=== PATIENT | female | born 1950 | race Caucasian/White ===

== ENCOUNTER 2016-12-23 11:42 | Emergency (ER) | payer OTHER ==
[2016-12-23 11:57] VITALS: BMI 26.6
[2016-12-23] MEDS ORDERED: METOCLOPRAMIDE HCL INJECTION 10 MG/2 ML VIAL IVPUSH ONE (12:30)
[2016-12-23] MEDS ORDERED: ACETAMINOPHEN 325 MG TABLET (FP) PO ONE (12:37)
--- NOTE | 2016-12-23 12:39 | PDOC ---
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 Patient notes she was in her gastroenterologists office when her doctor sent her to the ED for high blood pressure. The patient reports a gradual onset of non radiating chest pain and headache around 9 am yesterday morning secondary to finding out her brother . The patient describes her chest pain like as sharp and lasting 30 minutes before resolving. She reports a diffuse frontal headache radiating across her left and right forehead. She states her headache is stronger than her headaches in the past. There is no associated n/v, sob, diaphoresis, visoin changes, numbness/tingling/weakness. No recently exertional symptoms. The patient reports she is complaint to taking her lisinopril. She is unable to recall the name of her other blood pressure medication and states she hasn't taken it in 2 months. Denies nausea, vomiting, or diarrhea. Denies lightheadedness or vision changes. Denies shortness of breath or palpitations. Denies any other symptoms. <Jose M Ratliff - Last Filed: 12/23/16 16:59> <Asad Caldwell - Last Filed: 12/25/16 02:30> - General Chief Complaint: Blood Pressure Problem Stated Complaint: HIGH BLOOD BP (REFERRED) Time Seen by Provider: 12/23/16 12:09 Past History <Jose M Ratliff - Last Filed: 12/23/16 16:59> - Past Medical History HTN: Yes - Psycho/Social/Smoking Cessation Hx Suicidal Ideation: No Smoking Status: No Smoking History: Never smoked Number of Cigarettes Smoked Daily: 0 <Asad Caldwell - Last Filed: 12/25/16 02:30> - Past Medical History Allergies/Adverse Reactions: Allergies Allergy/AdvReac Type Severity Reaction Status Date / Time No Known Allergies Allergy Verified 12/23/16 11:52 Home Medications: Ambulatory Orders Cephalexin [Keflex Suspension] 500 mg PO QID 03/14/13 Acetaminophen [Tylenol .Regular Strength -] 650 mg PO Q6H PRN #0 tablet Amlodipine Besylate [Norvasc -] 10 mg PO DAILY #0 tablet 03/18/13 Levofloxacin [Levaquin] 500 mg PO DAILY #7 tablet 03/18/13 Lisinopril [Prinivil] 40 mg PO DAILY #0 tablet 03/18/13 Metronidazole [Flagyl -] 500 mg PO TID #0 tablet 03/18/13 Review of Systems - Review of Systems Able to Perform ROS?: Yes Comments:: 12/23/16 16:59 CONSTITUTIONAL: No reported: Fever, Chills, Diaphoresis, Generalized Weakness, Malaise, Loss of Appetite HEENT: No reported: Rhinorrhea, Nasal Congestion, Throat Pain, Throat Swelling, Difficulty Swallowing, Mouth Swelling, Ear Pain, Eye Pain, Visual Changes CARDIOVASCULAR: +high blood pressure, chest pain No reported: Syncope, Palpitations, Irregular Heart Rate, Lightheadedness, Peripheral Edema RESPIRATORY: No reported: Cough, Shortness of Breath, SOB with Exertion, Orthopnea, Wheezing , Stridor, Hemoptysis GASTROINTESTINAL: No reported: Abdominal pain, Abdominal Distension, Nausea, Vomiting, Diarrhea, Constipation, Melena, Hematochezia GENITOURINARY: No reported: Dysuria, Frequency, Urgency, Hesitancy, Flank Pain, Genital Pain MUSCULOSKELETAL: No reported: Myalgia, Arthralgia, Joint Swelling, Back pain, Neck Pain SKIN: No reported: Rash, Itching, Pallor HEMEATOLOGIC/IMMUNOLOGIC: No reported: Easy Bleeding, Easy Bruising, Lymphadenopathy, Frequent infections ENDOCRINE: No reported: Unexplained Weight Gain, Unexplained Weight Loss, Heat Intolerance , Cold Intolerance NEUROLOGIC: + headache No reported: Focal Weakness, Paresthesias, Vertigo, Lightheadedness, Unsteady Gait, Seizure, Mental Status Changes, Incontinence PSYCHIATRIC: No reported: Anxiety, Depression All Other Systems: Reviewed and Negative <Jose M Ratliff - Last Filed: 12/23/16 16:59> *Physical Exam - Vital Signs Last Vital Signs Temp Pulse Resp BP Pulse Ox 98.1 F 77 19 200/86 98 12/23/16 11:52 12/23/16 11:52 12/23/16 11:52 12/23/16 11:52 12/23/16 11:52 - Physical Exam Comments: 12/23/16 16:59 GENERAL: The patient is awake, alert, and fully oriented, Nontoxic - in no acute distress. HEAD: Normocephalic, atraumatic. EYES: extraocular movements intact, sclera anicteric, conjunctiva clear. ENT: Normal voice, Moist mucous membranes. NECK: Normal range of motion, supple LUNGS: Breath sounds equal, clear to auscultation bilaterally. No wheezes, no rhonchi, no rales. HEART: Regular rate and rhythm, without murmur, rub or gallop. ABDOMEN: Soft, nontender, normoactive bowel sounds. No guarding, no rebound.No CVA tenderness EXTREMITIES: Normal range of motion, no edema. No clubbing or cyanosis. No cords, erythema, or tenderness. NEUROLOGICAL: No facial assymetry, Normal speech, PSYCH: Normal mood, normal affect. SKIN: Warm, Dry, normal turgor, <RatliffAndrys - Last Filed: 12/23/16 16:59> - Vital Signs Last Vital Signs Temp Pulse Resp BP Pulse Ox 98.1 F 77 19 200/86 98 12/23/16 11:52 12/23/16 11:52 12/23/16 11:52 12/23/16 11:52 12/23/16 11:52 <Asad Caldwell - Last Filed: 12/25/16 02:30> Heart Score/ECG Review - ECG Impressions Comment:: 12/23/16 14:46 Twelve-lead EKG was performed and reviewed by me. There is normal sinus rhythm with a normal rate. Rate of 77 The axis is normal. The intervals are normal. There is normal R wave progression There are no ST or T wave abnormalities. Impression: Normal twelve-lead EKG <Asad Caldwell - Last Filed: 12/25/16 02:30> ED Treatment Course - LABORATORY CBC & Chemistry Diagram: 12/23/16 12:29 12/23/16 12:29 - ADDITIONAL ORDERS Additional order review: Laboratory Results 12/23/16 12/23/16 12:29 12:29 Sodium 140 Potassium 3.8 Chloride 100 Carbon Dioxide 31 Anion Gap 9 BUN 10 D Creatinine 0.9 Creat Clearance w eGFR > 60 Random Glucose 91 Calcium 9.6 Total Bilirubin 0.7 AST 18 D ALT 22 D Alkaline Phosphatase 66 Creatine Kinase 96 Troponin I < 0.02 Total Protein 8.1 Albumin 4.1 Urine Color Colorless Urine Appearance Clear Urine pH 7.0 D Ur Specific [place] 1.005 Urine Protein Negative Urine Glucose (UA) Negative Urine Ketones Negative Urine Blood 2+ H Urine Nitrite Negative Urine Bilirubin Negative Urine Urobilinogen Negative Ur Leukocyte Esterase 3+ H Urine RBC 7 Urine WBC 104 Ur Epithelial Cells Rare Urine Yeast Rare 12/23/16 12:29 RBC 4.23 MCV 89.7 MCHC 32.7 RDW 13.0 MPV 9.2 Neutrophils % 63.7 D Lymphocytes % 29.9 D Monocytes % 5.0 Eosinophils % 0.7 Basophils % 0.7 - RADIOLOGY Radiograph Interpretation: 12/23/16 15:28 CT/HEAD CT WITHOUT CONTRAST Impression: Normal noncontrast CT of the brain, Clinical correlation advised Reported by: Cleve Dhaliwal - Medications Given in the ED: ED Medications Discontinued Medications Generic Name Dose Route Start Last Admin Trade Name Freq PRN Reason Stop Dose Admin Acetaminophen 650 mg 12/23/16 12:37 12/23/16 13:46 Tylenol - PO 12/23/16 12:38 650 mg ONCE ONE Administration Metoclopramide HCl 10 mg 12/23/16 12:30 12/23/16 13:46 Reglan Injection - IVPUSH 12/23/16 12:31 10 mg ONCE ONE Administration <Jose M Ratliff - Last Filed: 12/23/16 16:59> - LABORATORY CBC & Chemistry Diagram: 12/23/16 12:29 12/23/16 12:29 - RADIOLOGY Radiology Studies Ordered: Category Date Time Status HEAD CT WITHOUT CONTRAST [CT] Stat CT Scan 12/23/16 12:30 Ordered <Asad Caldwell - Last Filed: 12/25/16 02:30> Medical Decision Making - Medical Decision Making 12/23/16 12:36 66y F hx of htn (on hctz) sent to the ED for evaluation of hypetension - pt was being evaluated by GI at his office when he noticed that she was very hypertensives into the 200s. pt also endorses having a headache and mild chest pain that started around the smae time yesterday morning - the pt also notes that she found out that her brother yesterday. Pt denies any neurologic sypmtoms. pts exam is unremarkable consider possible hypertensive emergency vs. anxiety, will give reglan, tylenol will ck lbas, ct head, ekg will reassess A portion of this note was documented by scribe services under my direction. I have reviewed the details of the note, within reason, and agree with the documentation with the following case summary and management plan written by me 12/23/16 16:49 labs reivewed unremarkable pt is currently asypmtomatic headache and chest pain resolved pt signed out to dr. samson to fu with 2n dtroponin will obtain a 2nd troponin and if asypmtomatic will dc <Asad Caldwell - Last Filed: 12/25/16 02:30> *DC/Admit/Observation/Transfer - Attestations Scribe Attestion: 12/23/16 16:59 Documentation prepared by Jose M Ratliff, acting as medical consultant for Asad Caldwell MD <Jose M Ratliff - Last Filed: 12/23/16 16:59> <Asad Caldwell - Last Filed: 12/25/16 02:30> Diagnosis at time of Disposition: Atypical chest pain - Discharge Dispostion Disposition: HOME Condition at time of disposition: Improved - Referrals Referrals: Jose Alejandro Santizo PA [Primary Care Provider] - - Patient Instructions Printed Discharge Instructions: DI for Atypical Chest Pain Additional Instructions: Your blood work demonstrates 2 negative troponins. At this time, your clear to be discharged. Your urine studies demonstrate your chronic findings with your urine. Please follow-up with your urologist as she had done before. If he develop any fevers or worsening lower abdominal pain or dysuria, please return to the ER for antibodies. Print Language: UKRAINIAN
[2016-12-23] MEDS ORDERED: METOCLOPRAMIDE HCL INJECTION 10 MG/2 ML VIAL ONE (13:47)
[2016-12-23] MEDS ORDERED: ACETAMINOPHEN 325 MG TABLET (FP) ONE (13:47)
[2016-12-23 13:58] LABS: BASOPHIL 0.7 % (0-2.0); EOSINOPHIL 0.7 % (0-4.5); MCH 29.3 pg (25.7-33.7); MCHC 32.7 g/dl (32.0-36.0); MEAN CELL VOLUME 89.7 fl (80-96); MEAN PLT VOLUME 9.2 fl (7.5-11.1); NEUTROPHILS 63.7 % (42.8-82.8); PLATELET COUNT 315 K/MM3 (134-434); WHITE BLOOD COUNT 8.1 K/mm3 (4.0-10.0)
[2016-12-23 14:01] LABS: URINE APPEARANCE CLEAR; URINE BILIRUBIN NEGATIVE (NEGATIVE); URINE COLOR COLORLESS; URINE GLUCOSE (UA) NEGATIVE (NEGATIVE); URINE KETONE NEGATIVE (NEGATIVE); URINE NITRITE NEGATIVE (NEGATIVE); URINE PROTEIN NEGATIVE (NEGATIVE); URINE UROBILINOGEN NEGATIVE E.U./dl (0.2-1.0)
[2016-12-23 14:02] LABS: URINE BLOOD 2+ (NEGATIVE); URINE LEUK ESTERASE 3+ (NEGATIVE)
[2016-12-23 14:04] LABS: URINE RBC 7 /hpf (0-3); URINE WBC 104 /hpf (3-5); YEAST RARE
[2016-12-23 14:40] LABS: ALBUMIN 4.1 g/dl (3.4-5.0); ANION GAP 9 (8-16); CALCIUM 9.6 mg/dL (8.5-10.1); CO2 31 mmol/L (21-32); CREATININE 0.9 mg/dL (0.55-1.02); GLUCOSE,RANDOM 91 mg/dL (74-106); SGOT/AST 18 U/L (15-37)
[2016-12-23 14:44] LABS: ALK PHOS 66 U/L (45-117); BILIRUBIN,TOTAL 0.7 mg/dL (0.2-1.0); SGPT/ALT 22 U/L (12-78); TOT PROT 8.1 g/dl (6.4-8.2); TROPONIN I < 0.02 ng/ml (0.00-0.05)
[2016-12-23] MEDS ORDERED: CEFTRIAXONE 1 GM in DEXTROSE 5%-WATER - 50 ML IVPB ONE (18:47)
[2016-12-23 20:01] LABS: TROPONIN I < 0.02 ng/ml (0.00-0.05)
--- NOTE | 2016-12-23 20:13 | PDOC ---
*Physical Exam - Vital Signs Last Vital Signs Temp Pulse Resp BP Pulse Ox 98.1 F 57 L 20 182/80 100 12/23/16 11:52 12/23/16 17:18 12/23/16 17:18 12/23/16 17:18 12/23/16 17:18 ED Treatment Course - LABORATORY CBC & Chemistry Diagram: 12/23/16 12:29 12/23/16 12:29 - ADDITIONAL ORDERS Additional order review: Laboratory Results 12/23/16 12/23/16 12/23/16 19:22 12:29 12:29 Sodium 140 Potassium 3.8 Chloride 100 Carbon Dioxide 31 Anion Gap 9 BUN 10 D Creatinine 0.9 Creat Clearance w eGFR > 60 Random Glucose 91 Calcium 9.6 Total Bilirubin 0.7 AST 18 D ALT 22 D Alkaline Phosphatase 66 Creatine Kinase 87 96 Troponin I < 0.02 < 0.02 Total Protein 8.1 Albumin 4.1 Urine Color Colorless Urine Appearance Clear Urine pH 7.0 D Ur Specific [place] 1.005 Urine Protein Negative Urine Glucose (UA) Negative Urine Ketones Negative Urine Blood 2+ H Urine Nitrite Negative Urine Bilirubin Negative Urine Urobilinogen Negative Ur Leukocyte Esterase 3+ H Urine RBC 7 Urine WBC 104 Ur Epithelial Cells Rare Urine Yeast Rare 12/23/16 12:29 RBC 4.23 MCV 89.7 MCHC 32.7 RDW 13.0 MPV 9.2 Neutrophils % 63.7 D Lymphocytes % 29.9 D Monocytes % 5.0 Eosinophils % 0.7 Basophils % 0.7 - Medications Given in the ED: ED Medications Discontinued Medications Generic Name Dose Route Start Last Admin Trade Name Freq PRN Reason Stop Dose Admin Acetaminophen 650 mg 12/23/16 12:37 12/23/16 13:46 Tylenol - PO 12/23/16 12:38 650 mg ONCE ONE Administration Metoclopramide HCl 10 mg 12/23/16 12:30 12/23/16 13:46 Reglan Injection - IVPUSH 12/23/16 12:31 10 mg ONCE ONE Administration Medical Decision Making - Medical Decision Making 12/23/16 20:10 Sign-out received from outgoing Emergency Physician Dr. Caldwell Pt interviewed and examined Ancillary studies reviewed Case discussed in detail with oncoming Emergency Physician including history, physical exam and ancillary studies. CBC, BMP 12/23/16 12:29 12/23/16 12:29 CMP Sodium 140 mmol/L (136-145) 12/23/16 12:29 Potassium 3.8 mmol/L (3.5-5.1) 12/23/16 12:29 Chloride 100 mmol/L (98-107) 12/23/16 12:29 Carbon Dioxide 31 mmol/L (21-32) 12/23/16 12:29 Anion Gap 9 (8-16) 12/23/16 12:29 BUN 10 mg/dL (7-18) D 12/23/16 12:29 Creatinine 0.9 mg/dL (0.55-1.02) 12/23/16 12:29 Creat Clearance w eGFR > 60 (>60) 12/23/16 12:29 Random Glucose 91 mg/dL (74-106) 12/23/16 12:29 Calcium 9.6 mg/dL (8.5-10.1) 12/23/16 12:29 Total Bilirubin 0.7 mg/dL (0.2-1.0) 12/23/16 12:29 AST 18 U/L (15-37) D 12/23/16 12:29 ALT 22 U/L (12-78) D 12/23/16 12:29 Alkaline Phosphatase 66 U/L (45-117) 12/23/16 12:29 Creatine Kinase 87 IU/L (26-192) 12/23/16 19:22 Troponin I < 0.02 ng/ml (0.00-0.05) 12/23/16 19:22 Total Protein 8.1 g/dl (6.4-8.2) 12/23/16 12:29 Albumin 4.1 g/dl (3.4-5.0) 12/23/16 12:29 Urine Test Results Urine Color Colorless 12/23/16 12:29 Urine Appearance Clear 12/23/16 12:29 Urine pH 7.0 (5.0-8.0) D 12/23/16 12:29 Ur Specific [place] 1.005 (1.001-1.035) 12/23/16 12:29 Urine Protein Negative (NEGATIVE) 12/23/16 12:29 Urine Glucose (UA) Negative (NEGATIVE) 12/23/16 12:29 Urine Ketones Negative (NEGATIVE) 12/23/16 12:29 Urine Blood 2+ (NEGATIVE) H 12/23/16 12:29 Urine Nitrite Negative (NEGATIVE) 12/23/16 12:29 Urine Bilirubin Negative (NEGATIVE) 12/23/16 12:29 Ur Leukocyte Esterase 3+ (NEGATIVE) H 12/23/16 12:29 Urine RBC 7 /hpf (0-3) 12/23/16 12:29 Urine WBC 104 /hpf (3-5) 12/23/16 12:29 Ur Epithelial Cells Rare /hpf (FEW) 12/23/16 12:29 The patient had 2 serial negative troponins. I reassessed the patient and noted that she was pain free and feeling much better. I had also discussed results of urine with the patient. She noted 3+ leuk esterase 104 RBCs. The patient reports to me that she has no dysuria and that she has chronic positive UTIs that is under investigation by urologist. She is aware that her urine findings are typically positive. She states that she typically does not need any antibiotics and that she'll follow with urologist. Given that this is chronic and that she is aware of the symptoms, we'll defer antibiotics at the moment. Return precautions given. I discussed the physical exam findings, ancillary test results and final diagnoses with the patient. I answered all of the patient's questions. The patient was satisfied with the care received and felt comfortable with the discharge plan and treatment plan. The patient will call their primary care physician within 24 hours to arrange follow-up and will return to the Emergency Department with any new, persistant or worsening symptoms. *DC/Admit/Observation/Transfer Diagnosis at time of Disposition: Atypical chest pain - Discharge Dispostion Disposition: HOME Condition at time of disposition: Improved Admit: No - Referrals Referrals: Jose Alejandro Santizo PA [Primary Care Provider] - - Patient Instructions Printed Discharge Instructions: DI for Atypical Chest Pain Additional Instructions: Your blood work demonstrates 2 negative troponins. At this time, your clear to be discharged. Your urine studies demonstrate your chronic findings with your urine. Please follow-up with your urologist as she had done before. If he develop any fevers or worsening lower abdominal pain or dysuria, please return to the ER for antibodies. Print Language: BELIZEAN - Post Discharge Activity
[2016-12-23 20:49] VITALS: BP 162/79; PULSE 61; TEMP 97.9
--- NOTE | 2016-12-24 16:27 | EKG ---
Test Reason : Blood Pressure : / mmHG Vent. Rate : 077 BPM Atrial Rate : 077 BPM P-R Int : 112 ms QRS Dur : 080 ms QT Int : 384 ms P-R-T Axes : 037 006 019 degrees QTc Int : 434 ms NORMAL SINUS RHYTHM NORMAL ECG WHEN COMPARED WITH ECG OF 26-JAN-2013 11:22, NO SIGNIFICANT CHANGE WAS FOUND Confirmed by BEAN TATE MD ([id number]) on 12/24/2016 4:26:54 PM Referred By: Confirmed By:BEAN TATE MD
--- NOTE | 2016-12-26 14:57 | PDOC ---
Patient Follow-up (Call Back) - Post ED Follow - Up Condition at time of discharge: Improved Disposition at time of original discharge: HOME Reason for Call Back: Abnwl. Microbiology (pt. had urine C & S done on 12/23/16 + for uti with > than 100,000 sensitive to macrobid 100 mg bid x 7 days, than follup with primary for repeat urine testing, sent to [facility] [address] in [place], pt. is aware)
== END 2016-12-23 20:49 | disposition home or self-care (01) ==
LOC: JER 11:42
PROC: 3E033GC Introduction of Other Therapeutic Substance into Peripheral Vein, Percutaneous Approach (ICD-10-PCS; principal; 2016-12-23)
DX: R07.89 Other chest pain (principal); I10 Essential (primary) hypertension
CPT/HCPCS: 36415; 70450-TC; 80053; 81003; 81015; 82550; 84484; 85025; 87086; 87186; 93005; 93010; 96374; 99283-25

== ENCOUNTER 2017-10-05 11:33 | Inpatient (IN) | payer OTHER ==
[2017-10-05 12:01] VITALS: BMI 24.1
--- NOTE | 2017-10-05 12:21 | PDOC ---
History of Present Illness - General Chief Complaint: Vaginal Bleeding Stated Complaint: PAIN Time Seen by Provider: 10/05/17 12:17 History Source: Patient Exam Limitations: No Limitations - History of Present Illness Initial Comments: CHIEF COMPLAINT: 66 y/o afebrile female with PMH HTN, HLD c/o weight loss, constipation and vaginal and rectal bleeding. HISTORY OF PRESENT ILLNESS: The patient states that she has had bleeding from her vagina and her rectum for the past 20 days. She has lost 30lb in the past 6 months without trying. She states she has not had a normal BM for 1 week but feels "full". She also c/o lower abdominal pain. THe patient had a hysterectomy 27 years ago. She saw her doctor 5 days ago who scheduled her for a colonoscopy next 10/11/17. She denies f/c, n/v, Cp, SOB, dizziness , weakness. She is not on a blood thinner. PCP is Dr. Juan Ramon Jack Vital signs on arrival are within normal limits. REVIEW OF SYSTEMS: GENERAL/CONSTITUTIONAL: No fever/chills. No weakness. +30lb unintentional weight loss in 6 months. HEAD, EYES, EARS, NOSE AND THROAT: No change in vision. No ear pain or discharge. No sore throat. CARDIOVASCULAR: No chest pain or shortness of breath. RESPIRATORY: No cough, wheezing, or hemoptysis. GASTROINTESTINAL: +lower abdominal pain and constipation. No nausea or vomiting. +recta l bleeding GENITOURINARY: No dysuria, frequency, or change in urination. +vaginal bleeding. MUSCULOSKELETAL: No joint or muscle swelling or pain. No neck or back pain. SKIN: No rash or easy bruising. NEUROLOGIC: No headache, vertigo, loss of consciousness, or loss of sensation. PHYSICAL EXAM: GENERAL: The patient is awake, alert, and fully oriented, in no acute distress. She is pleasant and well appearing. HEAD: Normal with no signs of trauma. ENT: Pupils equal, round and reactive to light, extraocular movements intact, sclera anicteric, conjunctiva clear. Conjunctiva pink. LUNGS: Clear to auscultation bilaterally. Normal excursion. No respiratory distress or use of accessory muscles. CV: RRR, S1/S2, no MRG. Cap refill < 2 sec. ABDOMEN: TTP of RLQ and right pelvic region. No rebound, guarding or rigidity. Soft, non-distended, no hepatomegaly or splenomegaly, no masses. VAGINAL: Speculum exam reveals fluid that appears like urine in the vaginal canal, along with minimal amount of blood and blood clots. Digital exam reveal some right adnexal and CMT TTP without any masses appreciated. RECTAL: +red blood on digital rectal exam. No masses appreciated. EXTREMITIES: Normal range of motion, no edema. NEUROLOGICAL: Normal speech, normal gait. CN II-XII grossly intact. SKIN: Warm, dry, normal turgor, no rashes or lesions noted. Past History - Past Medical History Allergies/Adverse Reactions: Allergies Allergy/AdvReac Type Severity Reaction Status Date / Time No Known Allergies Allergy Verified 10/05/17 11:55 Home Medications: Ambulatory Orders Nitrofurantoin Monohyd/M-Cryst [Macrobid -] 100 mg PO BID #14 capsule 12/26/16 Losartan/Hydrochlorothiazide [Losartan-Hctz 100-25 mg Tab] 1 each PO DAILY 10/05 Metoprolol Succinate 50 mg PO DAILY 10/05/17 Loperamide HCl [Loperamide] 2 mg PO ONCE #1 tablet 10/06/17 COPD: No HTN: Yes - Suicide/Smoking/Psychosocial Hx Smoking Status: No Smoking History: Former smoker Have you smoked in the past 12 months: No Number of Cigarettes Smoked Daily: 0 Information on smoking cessation initiated: No *Physical Exam - Vital Signs Last Vital Signs Temp Pulse Resp BP Pulse Ox 98.8 F 89 19 160/76 100 10/05/17 11:55 10/05/17 11:55 10/05/17 11:55 10/05/17 11:55 10/05/17 11:55 Heart Score/ECG Review - ECG Intrepretation Comment:: Twelve-lead EKG was performed and reviewed by Dr. Hussein. There is normal sinus rhythm with a normal rate and short ME. The axis is normal. The intervals are normal. There are no ST or T wave abnormalities. Impression: Otherwise normal twelve-lead EKG ED Treatment Course - LABORATORY CBC & Chemistry Diagram: 10/08/17 07:21 10/08/17 07:21 Medical Decision Making - Medical Decision Making A/P: 66 y/o female with 20 days of post menopausal vaginal and rectal bleeding with 30lb weight loss over past 6 months. Concerned for mass, fistula. Plan is as follows: 1. Labs 2. UA 3. Transvaginal ultrsaound 4. CT scan abd/pelvis Transvaginal Ultrasound IMPRESSION: Non specific free fluid in the cul-de-sac. Previous hysterectomy and b/l oophorectomy. CT scan abd/pelvis IMPRESSION: 1. Status post hysterectomy. Thickening of the vaginal fornix and circumferential urinary bladder wall thickening, which are inseparable from each other may be secondary to post radiation changes, however, active infectious/inflammatory processes or neoplasia cannot be entirely excluded. 2. Presence of gas locules within the urinary bladder and fluid within the vaginal fornix which appears to communicate with the right posterolateral wall of the urinary bladder - is extremely suspicious for vesicovaginal fistula. Emphysematous cystitis cannot be excluded. 3. Rectal wall thickening may be secondary to a nonspecific infectious or inflammatory proctitis. Neoplasm is not excluded. Circumferentially prominent sigmoid colon wall could be secondary to underdistention, however, colitis is not excluded. 4. Moderate rigt hydroureteronephrosis and mild left hydroureteronephrosis is likely secondary to scarring and/or extrinsic compression in the pelvis. This hydroureter is mildly increased since 03/14/13 CT. Will admit to hospitalist. Gave report to Dr. Timmons. Will admit to Dr. Villanueva. Will put in consult for surgery and GI. At this time Dr. Timmons does not want abx given; blood cultures ordered. Patient and her daughter made aware of the plan. *DC/Admit/Observation/Transfer Diagnosis at time of Disposition: Rectal bleeding Hydronephrosis Qualifiers: Hydronephrosis type: unspecified Qualified Code(s): N13.30 - Unspecified hydronephrosis UTI (urinary tract infection) Qualifiers: Urinary tract infection type: site unspecified Hematuria presence: with hematuria Qualified Code(s): N39.0 - Urinary tract infection, site not specified - Discharge Dispostion Condition at time of disposition: Stable Admit: Yes - Prescriptions - Referrals - Patient Instructions - Post Discharge Activity
[2017-10-05 13:27] LABS: BASO % 0.7 % (0-2.0); EOS % 0.8 % (0-4.5); HEMATOCRIT 28.4 % (32.4-45.2); MCH 26.7 pg (25.7-33.7); MCHC 31.9 g/dl (32.0-36.0); MEAN CELL VOLUME 83.7 fl (80-96); MEAN PLT VOLUME 7.9 fl (7.5-11.1); MONO % 4.6 % (3.8-10.2); NEUT % 69.9 % (42.8-82.8); PLATELET COUNT 571 K/MM3 (134-434); RBC 3.39 M/mm3 (3.60-5.2); RDW 15.9 % (11.6-15.6); WHITE BLOOD COUNT 13.5 K/mm3 (4.0-10.0)
[2017-10-05 13:43] LABS: INR 1.35 (0.82-1.09); PROTHROMBIN TIME (PATIENT) 15.2 SEC (9.98-11.88)
[2017-10-05 13:46] LABS: ACTIVATED PTT 29.3 SECONDS (26.9-34.4)
[2017-10-05 14:01] LABS: ALBUMIN 3.3 g/dl (3.4-5.0); ANION GAP 11 (8-16); BILIRUBIN,TOTAL 0.5 mg/dL (0.2-1.0); BLOOD UREA NITROGEN 26 mg/dL (7-18); CALCIUM 9.1 mg/dL (8.5-10.1); CHLORIDE 103 mmol/L (98-107); CO2 22 mmol/L (21-32); CREATININE 1.4 mg/dL (0.55-1.02); GLUCOSE,RANDOM 100 mg/dL (74-106); POTASSIUM 4.9 mmol/L (3.5-5.1); SGOT/AST 19 U/L (15-37); SGPT/ALT 24 U/L (12-78); SODIUM 136 mmol/L (136-145); TOT PROT 8.5 g/dl (6.4-8.2)
[2017-10-05 14:02] LABS: ALK PHOS 86 U/L (45-117)
[2017-10-05 15:42] LABS: URINE APPEARANCE SLCLOUDY; URINE BILIRUBIN NEGATIVE (NEGATIVE); URINE BLOOD 3+ (NEGATIVE); URINE COLOR LTYELLOW; URINE GLUCOSE (UA) NEGATIVE (NEGATIVE); URINE KETONE NEGATIVE (NEGATIVE); URINE NITRITE NEGATIVE (NEGATIVE); URINE UROBILINOGEN NEGATIVE mg/dL (0.2-1.0)
[2017-10-05 15:47] LABS: URINE LEUK ESTERASE 3+ (NEGATIVE); URINE PROTEIN 1+ (NEGATIVE)
--- NOTE | 2017-10-05 16:12 | EKG ---
Test Reason : Blood Pressure : / mmHG Vent. Rate : 085 BPM Atrial Rate : 085 BPM P-R Int : 106 ms QRS Dur : 080 ms QT Int : 342 ms P-R-T Axes : 029 018 021 degrees QTc Int : 406 ms SINUS RHYTHM WITH SHORT CO OTHERWISE NORMAL ECG WHEN COMPARED WITH ECG OF 23-DEC-2016 13:47, NO SIGNIFICANT CHANGE WAS FOUND Confirmed by JESUS BARNES MD ([id number]) on 10/05/2017 4:12:43 PM Referred By: Confirmed By:JESUS BARNES MD
[2017-10-05 16:56] LABS: EPI CELLS RARE /HPF (FEW); URINE BACTERIA RARE /hpf (NONE SEEN)
--- NOTE | 2017-10-05 21:29 | HP ---
CHIEF COMPLAINT: PCP: Dr. Jack HISTORY OF PRESENT ILLNESS: 66 y/o F with PMH HTN, hx vaginal cancer and subsequent hysterectomy (dx 27 yrs ago, received radiation in the past- currently not on), who presents to the ED with hematuria, diarrhea, and increased abdominal pain over the last two months. As per pt's daughter, pt has had gradually worsening hematuria which started two months ago. It has been increasing in frequency, as it was once occurring every few days, but then more recently, daily. Pt has not had any associated lightheadedness or syncopal episodes. Pt has also had diarrhea - loose BMs without blood over this time, as well as groin pain which radiates to her back b/l. Pt also endorses an unintentional 32 pound weight loss over the last 6 months. Not a/w night sweats, loss of appetite, fever, chills, SOB, or changes in urinary function. ER course was notable for: (1) leukocytosis 13.5 (2) Cr 1.4 (3) abdominal/pelvic CT: vesicovaginal fistula, rectal wall thickening, possible proctitis, cystitis cannot be excluded, moderate R and mild L hydroureteronephrosis - likely 2/2 scarring and/or extrinsic compression in pelvis, hepatic steatosis Recent Travel: none PAST MEDICAL HISTORY: HTN, hx vaginal cancer (s/p hysterectomy- 27 yrs ago, received radiation in past) PAST SURGICAL HISTORY: hysterectomy (27 yrs ago) Social History: Smoking: denies Alcohol: denies Drugs: denies Family History: sister: colon cancer father: HTN Allergies No Known Allergies Allergy (Verified 10/05/17 11:55) HOME MEDICATIONS: Home Medications Medication Instructions Recorded Nitrofurantoin Monohyd/M-Cryst 100 mg PO BID #14 capsule 12/26/16 [Macrobid -] Losartan/Hydrochlorothiazide 1 each PO DAILY 10/05/17 [Losartan-Hctz 100-25 mg Tab] Metoprolol Succinate 50 mg PO DAILY 10/05/17 REVIEW OF SYSTEMS CONSTITUTIONAL: +weight loss Absent: fever, chills, diaphoresis, generalized weakness, malaise, loss of appetite, weight change HEENT: Absent: rhinorrhea, nasal congestion, throat pain, throat swelling, difficulty swallowing, mouth swelling, ear pain, eye pain, visual changes CARDIOVASCULAR: Absent: chest pain, syncope, palpitations, irregular heart rate, lightheadedness , peripheral edema RESPIRATORY: Absent: cough, shortness of breath, dyspnea with exertion, orthopnea, wheezing, stridor, hemoptysis GASTROINTESTINAL: +abdominal pain, diarrhea Absent: abdominal pain, abdominal distension, nausea, vomiting, diarrhea, constipation, melena, hematochezia GENITOURINARY: +hematuria Absent: dysuria, frequency, urgency, hesitancy, hematuria, flank pain, genital pain MUSCULOSKELETAL: Absent: myalgia, arthralgia, joint swelling, back pain, neck pain SKIN: Absent: rash, itching, pallor HEMATOLOGIC/IMMUNOLOGIC: Absent: easy bleeding, easy bruising, lymphadenopathy, frequent infections ENDOCRINE: Absent: unexplained weight gain, unexplained weight loss, heat intolerance, cold intolerance NEUROLOGIC: Absent: headache, focal weakness or paresthesias, dizziness, unsteady gait, seizure, mental status changes, bladder or bowel incontinence PSYCHIATRIC: Absent: anxiety, depression, suicidal or homicidal ideation, hallucinations. PHYSICAL EXAMINATION Vital Signs - 24 hr 10/05/17 11:55 Temperature 98.8 F Pulse Rate 89 Respiratory 19 Rate Blood Pressure 160/76 O2 Sat by Pulse 100 Oximetry (%) GENERAL: Lying down. awake, alert, and fully oriented, in no acute distress. HEAD: Normal with no signs of trauma. EYES: Pupils equal, round and reactive to light, extraocular movements intact, sclera anicteric, conjunctiva clear. EARS, NOSE, THROAT: Ears normal, nares patent, oropharynx clear without exudates. Moist mucous membranes. NECK: tender submandibular lymphadenopathy on L LUNGS: Breath sounds equal, clear to auscultation bilaterally. No wheezes, and no crackles. No accessory muscle use. HEART: Regular rate and rhythm, normal S1 and S2 without murmur, rub or gallop. ABDOMEN: Soft, not distended, normoactive bowel sounds, no guarding, no rebound , no masses. suprapubic tenderness to palpation LOWER EXTREMITIES: 2+ posterior tibial pulses, warm, well-perfused. No calf tenderness. No peripheral edema. NEUROLOGICAL: Cranial nerves II-XII intact. Laboratory Tests 10/05/17 10/05/17 10/05/17 12:37 13:13 13:13 WBC 13.5 H D Hgb 9.0 L D Hct 28.4 L D Plt Count 571 H D Sodium 136 Potassium 4.9 Chloride 103 Carbon Dioxide 22 BUN 26 H Creatinine 1.4 H Urine Color Urine RBC (Auto) Stool Occult Blood Positive 10/05/17 14:44 Chloride Carbon Dioxide BUN Creatinine Urine Color Ltyellow Urine Appearance Slcloudy Urine Protein 1+ H Urine Blood 3+ H Ur Leukocyte Esterase 3+ H Urine WBC (Auto) 134 Urine RBC (Auto) 9 Stool Occult Blood Micro -Blood cx pending Radio -ABDOMINAL/PELVIC CT IMPRESSION: 1. Status post hysterectomy. Thickening of the vaginal fornix and circumferential urinary bladder wall thickening, which are inseparable from each other may be secondary to post radiation changes, however, active infectious/inflammatory processes or neoplasia cannot be entirely excluded. 2. Presence of gas locules within the urinary bladder and fluid within the vaginal fornix which appears to communicate with the right posterolateral wall of the urinary bladder - is extremely suspicious for vesicovaginal fistula. Emphysematous cystitis cannot be excluded. 3. Rectal wall thickening may be secondary to a nonspecific infectious or inflammatory proctitis. Neoplasm is not excluded. Circumferentially prominent sigmoid colon wall could be secondary to underdistention, however, colitis is not excluded. 4. Moderate right hydroureteronephrosis and mild left hydroureteronephrosis is likely secondary to scarring and/or extrinsic compression in the pelvis. This hydroureter is mildly increased since 03/14/13 CT. ASSESSMENT/PLAN: #vesicovaginal fistula 2/ radiation #UTI #?inflammatory proctitis -afebrile, with leukocytosis 13.5 -received rocephin 2gm IVPB -ID consult- Dr. Moran -GI consult - Dr. Barrientos -Surgery consult- Dr. Gill . -consider uro/tank operator consult in AM -pain control with Tylenol PRN -IVF #HTN- currently controlled -Continue home meds : Losartan/HCTZ 100-25 mg 1 each PO qd -metoprolol succinate 50mg PO qd #F/E/N IV NS 83 cc/hr Monitor electrolytes Na controlled diet #Prophylaxis DVT: SCD's, holding heparin SQ 5000 BID d/t bleed #Dispo med surg Visit type - Emergency Visit Emergency Visit: Yes ED Registration Date: 10/05/17 Care time: The patient presented to the Emergency Department on the above date and was hospitalized for further evaluation of their emergent condition. - New Patient This patient is new to me today: Yes Date on this admission: 10/05/17 - Critical Care Critical Care patient: No
[2017-10-05] MEDS ORDERED: PATIENT'S OWN MEDICATION (NON-FORMULARY) (Losartan/Hydrochlorothiazide [Losartan-Hctz 100- PO SCH (21:30)
[2017-10-05] MEDS ORDERED: METOPROLOL SUCCINATE 50 MG TAB.SR.24H (FP) ONE (21:33)
--- NOTE | 2017-10-05 21:33 | PN ---
Teaching Attending Note Name of Resident: Conchis Solitario ATTENDING PHYSICIAN STATEMENT I saw and evaluated the patient. I reviewed the resident's note and discussed the case with the resident. I agree with the resident's findings and plan as documented. SUBJECTIVE: 66 year old female with history of endometrial cancer diagnosed [address] [place] which was treated with BATSHEVA&BSO followed by XRT now presents c/o vaginal bleeding and hematuria. Reports history of chronic recurrent UTI and " fistula" as per daughter . She had a surgical procedure performed by TRAFFIC ANALYSIS TECHNICIAN however patient is not clear on details and no records are available from DR. Pack fever OBJECTIVE: Vital Signs Temperature 98.8 F 10/05/17 11:55 Pulse Rate 89 10/05/17 11:55 Respiratory Rate 19 10/05/17 11:55 Blood Pressure 160/76 10/05/17 11:55 O2 Sat by Pulse Oximetry (%) 100 10/05/17 11:55 ABD soft, positive suprapubic tenderness CBC, BMP 10/05/17 13:13 10/05/17 13:13 Transvaginal Ultrasound IMPRESSION: Non specific free fluid in the cul-de-sac. Previous hysterectomy and b/l oophorectomy. CT scan abd/pelvis IMPRESSION: 1. Status post hysterectomy. Thickening of the vaginal fornix and circumferential urinary bladder wall thickening, which are inseparable from each other may be secondary to post radiation changes, however, active infectious/inflammatory processes or neoplasia cannot be entirely excluded. 2. Presence of gas locules within the urinary bladder and fluid within the vaginal fornix which appears to communicate with the right posterolateral wall of the urinary bladder - is extremely suspicious for vesicovaginal fistula. Emphysematous cystitis cannot be excluded. 3. Rectal wall thickening may be secondary to a nonspecific infectious or inflammatory proctitis. Neoplasm is not excluded. Circumferentially prominent sigmoid colon wall could be secondary to underdistention, however, colitis is not excluded. 4. Moderate rigt hydroureteronephrosis and mild left hydroureteronephrosis is likely secondary to scarring and/or extrinsic compression in the pelvis. This hydroureter is mildly increased since 03/14/13 CT. ASSESSMENT : 1. 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 Chronic hydroureteronephrosis 4. History of endometrial cancer recurrence can not be excluded PLAN - IVAB - pain control - uro/optometry doctor consult - IF
[2017-10-05] MEDS ORDERED: CEFTRIAXONE 2 GM/100 ML BAG IVPB ONE (21:43)
[2017-10-05] MEDS ORDERED: CEFTRIAXONE IN IS-OSM DEXTROSE 2 GM/50 ML BAG IVPB ONE (21:45)
[2017-10-05] MEDS: SODIUM CHLORIDE 1,000 ML IV SCH (22:14)
[2017-10-05] MEDS: LOSARTAN POTASSIUM 100 MG TABLET PO SCH (22:29)
[2017-10-05] MEDS: HYDROCHLOROTHIAZIDE 25 MG TABLET (FP) PO SCH (22:29)
[2017-10-05] MEDS: METOPROLOL SUCCINATE 50 MG TAB.SR.24H (FP) PO SCH (22:29)
[2017-10-05] MEDS ORDERED: ACETAMINOPHEN 500 MG TABLET (FP) PO PRN (22:36)
[2017-10-06 07:56] LABS: ALBUMIN 2.9 g/dl (3.4-5.0); ANION GAP 10 (8-16); BLOOD UREA NITROGEN 22 mg/dL (7-18); CALCIUM 9.1 mg/dL (8.5-10.1); CHLORIDE 104 mmol/L (98-107); CO2 24 mmol/L (21-32); GLUCOSE,RANDOM 85 mg/dL (74-106); POTASSIUM 4.6 mmol/L (3.5-5.1); SODIUM 138 mmol/L (136-145)
[2017-10-06 08:00] LABS: ALK PHOS 77 U/L (45-117); BILIRUBIN,TOTAL 0.3 mg/dL (0.2-1.0); CREATININE 1.2 mg/dL (0.55-1.02); SGOT/AST 17 U/L (15-37); SGPT/ALT 22 U/L (12-78); TOT PROT 7.7 g/dl (6.4-8.2)
--- NOTE | 2017-10-06 08:38 | PN ---
Physical Exam: SUBJECTIVE: Patient seen and examined in the AM - Pt continues to report hematuria today and loose stools. Denies any fever/ chills, MELGAR, SOB, CP, N/V, rashes, vaginal discharge or menstrual bleeding. Pt w / no other major complaints OBJECTIVE: Vital Signs Intake & Output 10/03/17 10/04/17 10/05/17 10/06/17 23:59 23:59 23:59 23:59 Weight 59.874 kg Period Temp Pulse Resp BP Sys/[place] Pulse Ox Last 24 Hr 97.8 F-98.8 F 62-89 14-19 114-160/62-80 98-100 GENERAL: The patient is awake, alert, and fully oriented, in no acute distress. HEAD: Normal with no signs of trauma. EYES: PERRL, extraocular movements intact, sclera anicteric, conjunctiva clear. No ptosis. ENT: Tender lymphadenopathy on L side. Ears normal, nares patent, oropharynx clear without exudates, moist mucous membranes. NECK: Trachea midline, full range of motion, supple. LUNGS: Breath sounds equal, clear to auscultation bilaterally, no wheezes, no crackles, no accessory muscle use. HEART: Regular rate and rhythm, S1, S2 without murmur, rub or gallop. ABDOMEN: + suprapubic tenderness to palpation. Soft, nontender, nondistended, normoactive bowel sounds, no guarding, no rebound, no hepatosplenomegaly, no masses. No CVA tenderness. EXTREMITIES: 2+ pulses, warm, well-perfused, no edema. NEUROLOGICAL: Cranial nerves II through XII grossly intact. Normal speech, gait not observed. PSYCH: Normal mood, normal affect. SKIN: Warm, dry, normal turgor, no rashes or lesions noted Genital: Pt refused genital exam, opting for female examiner. Laboratory Results - last 24 hr CBC, BMP 10/06/17 07:09 10/06/17 07:09 10/05/17 13:13 10/06/17 07:09 10/05/17 10/05/17 10/05/17 12:37 13:13 13:13 WBC 13.5 H D RBC 3.39 L Hgb 9.0 L D Hct 28.4 L D MCV 83.7 MCH 26.7 MCHC 31.9 L RDW 15.9 H D Plt Count 571 H D MPV 7.9 D Neutrophils % 69.9 Lymphocytes % 24.0 Monocytes % 4.6 Eosinophils % 0.8 Basophils % 0.7 PT with INR 15.20 H INR 1.35 H PTT (Actin FS) 29.3 Sodium Potassium Chloride Carbon Dioxide Anion Gap BUN Creatinine Creat Clearance w eGFR Random Glucose Calcium Total Bilirubin AST ALT Alkaline Phosphatase Total Protein Albumin Urine Color Urine Appearance Urine pH Ur Specific [place] Urine Protein Urine Glucose (UA) Urine Ketones Urine Blood Urine Nitrite Urine Bilirubin Urine Urobilinogen Ur Leukocyte Esterase Urine WBC (Auto) Urine RBC (Auto) Ur Epithelial Cells Urine Bacteria Stool Occult Blood Positive Blood Type Antibody Screen 10/05/17 10/05/17 10/05/17 13:13 14:44 15:00 WBC RBC Hgb Hct MCV MCH MCHC RDW Plt Count MPV Neutrophils % Lymphocytes % Monocytes % Eosinophils % Basophils % PT with INR INR PTT (Actin FS) Sodium 136 Potassium 4.9 Chloride 103 Carbon Dioxide 22 Anion Gap 11 BUN 26 H Creatinine 1.4 H Creat Clearance w eGFR 37.74 Random Glucose 100 Calcium 9.1 Total Bilirubin 0.5 D AST 19 ALT 24 Alkaline Phosphatase 86 Total Protein 8.5 H Albumin 3.3 L Urine Color Ltyellow Urine Appearance Slcloudy Urine pH 6.0 Ur Specific [place] 1.003 Urine Protein 1+ H Urine Glucose (UA) Negative Urine Ketones Negative Urine Blood 3+ H Urine Nitrite Negative Urine Bilirubin Negative Urine Urobilinogen Negative Ur Leukocyte Esterase 3+ H Urine WBC (Auto) 134 Urine RBC (Auto) 9 Ur Epithelial Cells Rare Urine Bacteria Rare Stool Occult Blood Blood Type A POSITIVE Antibody Screen Negative 10/06/17 07:09 WBC RBC Hgb Hct MCV MCH MCHC RDW Plt Count MPV Neutrophils % Lymphocytes % Monocytes % Eosinophils % Basophils % PT with INR INR PTT (Actin FS) Sodium 138 Potassium 4.6 Chloride 104 Carbon Dioxide 24 Anion Gap 10 BUN 22 H Creatinine 1.2 H Creat Clearance w eGFR 45.09 Random Glucose 85 Calcium 9.1 Total Bilirubin 0.3 D AST 17 ALT 22 Alkaline Phosphatase 77 Total Protein 7.7 Albumin 2.9 L Urine Color Urine Appearance Urine pH Ur Specific [place] Urine Protein Urine Glucose (UA) Urine Ketones Urine Blood Urine Nitrite Urine Bilirubin Urine Urobilinogen Ur Leukocyte Esterase Urine WBC (Auto) Urine RBC (Auto) Ur Epithelial Cells Urine Bacteria Stool Occult Blood Blood Type Antibody Screen Active Medications Generic Name Dose Route Start Last Admin Trade Name Freq PRN Reason Stop Dose Admin Acetaminophen 500 mg 10/05/17 22:36 Tylenol - PO Q4H PRN PAIN Hydrochlorothiazide 25 mg 10/05/17 21:45 10/05/17 22:29 Hctz - PO 25 mg DAILY RICO Administration Sodium Chloride 1,000 mls @ 83 mls/hr 10/05/17 21:45 10/05/17 22:14 Normal Saline - IV 83 mls/hr ASDIR RICO Administration Losartan Potassium 100 mg 10/05/17 21:45 10/05/17 22:29 Losartan Potassium PO 100 mg DAILY RICO Administration Metoprolol Succinate 50 mg 10/05/17 21:30 10/05/17 22:29 Toprol Xl - PO 50 mg DAILY RICO Administration Microbiology 10/05/17 19:15 Blood - Peripheral Venous Blood Culture - Preliminary NO GROWTH OBTAINED AFTER 24 HOURS, INCUBATION TO CONTINUE FOR 4 DAYS. 10/05/17 19:15 Blood - Peripheral Venous Blood Culture - Preliminary NO GROWTH OBTAINED AFTER 24 HOURS, INCUBATION TO CONTINUE FOR 4 DAYS. -ABDOMINAL/PELVIC CT IMPRESSION: 1. Status post hysterectomy. Thickening of the vaginal fornix and circumferential urinary bladder wall thickening, which are inseparable from each other may be secondary to post radiation changes, however, active infectious/inflammatory processes or neoplasia cannot be entirely excluded. 2. Presence of gas locules within the urinary bladder and fluid within the vaginal fornix which appears to communicate with the right posterolateral wall of the urinary bladder - is extremely suspicious for vesicovaginal fistula. Emphysematous cystitis cannot be excluded. 3. Rectal wall thickening may be secondary to a nonspecific infectious or inflammatory proctitis. Neoplasm is not excluded. Circumferentially prominent sigmoid colon wall could be secondary to underdistention, however, colitis is not excluded. 4. Moderate right hydroureteronephrosis and mild left hydroureteronephrosis is likely secondary to scarring and/or extrinsic compression in the pelvis. This hydroureter is mildly increased since 03/14/13 CT. TVUS 10/05 - No discrete masses appreciated. Uterus, ovaries not seen. Trace fluid in the cul-de-sac EK/18 - NSR rate 86, NAD, QTC 406, no t-wave or ST changes ASSESSMENT/PLAN: 66 y/o F with PMH HTN, vaginal cancer and hysterectomy (27 yrs ago, radiation tx ), who presents to the ED with hematuria, diarrhea, and worsening abdominal pain over the last two months. #Suspected vesicovaginal fistula - Community Health Nurse Supervisor consulted - Per Dr. Loyola, unlikely to have vesicovaginal fistula; will f/u - ID consulted - Ceftriaxone/flagyl for coverage - Monitor for continued hematuria - Avoid AC until no active bleeding - Tylenol for pain control #BL hydronephrosis - No perc nephrostomy placement per IR, as no evidence of hydronephrosis on U/ S and high risk of bleeding; recommed retrograde cystogram - Urology consulted - recommend bx of suspicious perivesicular mass and BL nephrostomies #Rectal bleeding - Never received colonoscopy in past - GI consulted. Plan for colonoscopy to assess for ca, proctitis, other lesions - avoids NSAIDs - Transfuse at <7 Hgb - FOBT + #BETHANY - Cr 1.4 -> 1.2 today -resolving; continue IVFs #leukocytosis - 10.9 today, resolving - monitor for infectious symptoms #Hx Endometrial CA - Will likely require director of individual giving/onc evaluation for suspicious perivesicular mass #Diarrhea - likely noninfectious, chronic - Imodium PRN - If suspicious for infectious causes, send stool cultures/O+P/C diff - Trend fever, WBC count - F/u blood cultures #HTN c/w home HTN meds PPX SCDs FEN NS 83 cc/hr Daily BMPs Regular diet Plan discussed with attending, Dr. Jamee Dotson, PGY1 Visit type - Emergency Visit Emergency Visit: Yes ED Registration Date: 10/05/17 Care time: The patient presented to the Emergency Department on the above date and was hospitalized for further evaluation of their emergent condition. - New Patient This patient is new to me today: Yes Date on this admission: 10/07/17 - Critical Care Critical Care patient: No
[2017-10-06 08:50] LABS: BASO % 0.5 % (0-2.0); EOS % 2.7 % (0-4.5); HEMOGLOBIN 8.8 GM/dL (10.7-15.3); LYMPH % 28.6 % (8-40); MCH 26.7 pg (25.7-33.7); MCHC 31.6 g/dl (32.0-36.0); MEAN CELL VOLUME 84.6 fl (80-96); MEAN PLT VOLUME 7.8 fl (7.5-11.1); MONO % 5.2 % (3.8-10.2); PLATELET COUNT 513 K/MM3 (134-434); RBC 3.31 M/mm3 (3.60-5.2); RDW 15.2 % (11.6-15.6); WHITE BLOOD COUNT 10.9 K/mm3 (4.0-10.0)
--- NOTE | 2017-10-06 09:37 | CON.GU ---
Consult Consult Specialty:: Referred by:: ED Reason for Consultation:: abdominal pain. CT findings - History of Present Illness Chief Complaint: abdominal pain. CT findings History of Present Illness: 66 yo female with a history of uterine cancer and a hysterectomy and adjuvant radaition (according to the patient) comes in today with abdominal pain, and vaginal bleeding. CT scan show bilateral ureteral obstruction down to the level of the pelvis where changes exist consistent with radiation therapy and possible malignancy. She denies any nausea/vomiting/fevers. - History Source History Provided By: Patient, Medical Record Limitations to Obtaining History: No Limitations - Past Medical History Renal/: Yes: Cancer, UTI Reproductive: Yes: Other - Smoking History Smoking history: Former smoker Have you smoked in the past 12 months: No Aproximately how many cigarettes per day: 0 Home Medications - Allergies Allergies/Adverse Reactions: Allergies Allergy/AdvReac Type Severity Reaction Status Date / Time No Known Allergies Allergy Verified 10/05/17 11:55 - Home Medications Home Medications: Ambulatory Orders Nitrofurantoin Monohyd/M-Cryst [Macrobid -] 100 mg PO BID #14 capsule 12/26/16 Losartan/Hydrochlorothiazide [Losartan-Hctz 100-25 mg Tab] 1 each PO DAILY 10/05 Metoprolol Succinate 50 mg PO DAILY 10/05/17 Review of Systems - Review of Systems Genitourinary: reports: Dysuria, Hematuria, Incontinence Physical Exam- Vital Signs: Vital Signs Temperature 98.6 F 10/06/17 08:40 Pulse Rate 67 10/06/17 08:40 Respiratory Rate 16 10/06/17 08:40 Blood Pressure 130/72 10/06/17 08:40 O2 Sat by Pulse Oximetry (%) 100 10/06/17 08:40 Constitutional: Yes: Well Nourished, No Distress, Calm Gastrointestinal: Yes: Soft, Tenderness Renal/: No: Bladder Distention, CVA Tenderness - Left, CVA Tenderness - Right Labs: CBC, BMP 10/06/17 07:09 10/06/17 07:09 Imaging - Results Cat Scan: Report Reviewed Problem List - Problems (1) Hydronephrosis Assessment/Plan: hydroureter down to a pelvic mass. She will need a biopsy of the suspicious area to rule out recurrent neoplasm and if positive will need consideration of a pelvic exenteration. [facility] WELDER APPRENTICE ONC should be consulted. Because of possible fistula as well, bilateral nephrostomy tubes should be placed to divert her urinary stream . will follow. Code(s): N13.30 - UNSPECIFIED HYDRONEPHROSIS Qualifiers: Hydronephrosis type: unspecified Qualified Code(s): N13.30 - Unspecified hydronephrosis
--- NOTE | 2017-10-06 10:05 | CON.ID ---
Consult Consult Specialty:: infectious disease Referred by:: hospitalist service Reason for Consultation:: possible cystitis/proctitis - History of Present Illness Chief Complaint: bleeding History of Present Illness: 66 year old female with 30 pound weight loss blood per rectum and vagina history of hysterectomy 27 years ago, ?radiation for vaginal cancer no fevers no vomiting +supra pubic pain ct scan with thickened bladder wall , gas in bladder wall, rectal wall thickening and bilateral hydroureter right greater then left - History Source History Provided By: Patient, Medical Record - Past Medical History Cardio/Vascular: Yes: HTN Renal/: Yes: UTI - Past Surgical History Past Surgical History: Yes: Hysterectomy - Smoking History Smoking history: Former smoker Have you smoked in the past 12 months: No Aproximately how many cigarettes per day: 0 - Social History Usual Living Arrangement: With Child ADL: Independent Place of : Other ([facility]) History of Recent Travel: No Home Medications - Allergies Allergies/Adverse Reactions: Allergies Allergy/AdvReac Type Severity Reaction Status Date / Time No Known Allergies Allergy Verified 10/05/17 11:55 - Home Medications Home Medications: Ambulatory Orders Nitrofurantoin Monohyd/M-Cryst [Macrobid -] 100 mg PO BID #14 capsule 12/26/16 Losartan/Hydrochlorothiazide [Losartan-Hctz 100-25 mg Tab] 1 each PO DAILY 10/05 Metoprolol Succinate 50 mg PO DAILY 10/05/17 Family Disease History - Family Disease History Family History: Unremarkable Review of Systems - Review of Systems Constitutional: reports: Unintentional Wgt. Loss, Weakness Eyes: reports: No Symptoms HENT: reports: No Symptoms. denies: Throat Pain Neck: reports: No Symptoms Cardiovascular: reports: No Symptoms. denies: Chest Pain Respiratory: reports: No Symptoms. denies: Cough, SOB Gastrointestinal: reports: Other (blood in stool) Genitourinary: reports: Hematuria Musculoskeletal: reports: No Symptoms Integumentary: reports: No Symptoms Neurological: reports: No Symptoms Physical Exam Vital Signs: Vital Signs Temperature 98.6 F 10/06/17 08:40 Pulse Rate 67 10/06/17 08:40 Respiratory Rate 16 10/06/17 08:40 Blood Pressure 130/72 10/06/17 08:40 O2 Sat by Pulse Oximetry (%) 100 10/06/17 08:40 Constitutional: Yes: Well Nourished, No Distress, Calm Eyes: Yes: WNL HENT: Yes: WNL. No: Pharyngeal Erythema, Thrush Neck: Yes: Supple, Trachea Midline Cardiovascular: Yes: Regular Rate and Rhythm, Murmur (harsh 3/6 kevin LUSB) Respiratory: Yes: CTA Bilaterally Gastrointestinal: Yes: Normal Bowel Sounds, Soft, Other (suprapubic pain to palpation, ?inguinal firmness- adenopathy?) Extremities: Yes: WNL Edema: No Psychiatric: Yes: Alert Labs: CBC, BMP 10/06/17 07:09 10/06/17 07:09 stoo OB positive ua with 135 WBC Imaging - Results Chest X-ray: Pending Cat Scan: Report Reviewed (thiekened bladder, gas in urinary bladder wall, rectal wall thickening bilateral hydrouteronephrosis) Problem List - Problems (1) UTI (urinary tract infection) Code(s): N39.0 - URINARY TRACT INFECTION, SITE NOT SPECIFIED Qualifiers: Urinary tract infection type: site unspecified Hematuria presence: with hematuria Qualified Code(s): N39.0 - Urinary tract infection, site not specified; R31.9 - Hematuria, unspecified; R31.9 - Hematuria, unspecified (2) Hydronephrosis Code(s): N13.30 - UNSPECIFIED HYDRONEPHROSIS Qualifiers: Hydronephrosis type: unspecified Qualified Code(s): N13.30 - Unspecified hydronephrosis (3) Rectal bleeding Code(s): K62.5 - HEMORRHAGE OF ANUS AND RECTUM Assessment/Plan possible UTI/proctitis GYNE malignancy in the differential bilateral hydrouretonephrosis- d/w urology cultures sent plan rocephin/flagyl further evaluation by gyne/surgery pending
[2017-10-06] MEDS ORDERED: cefTRIAXone 1 GM/50 ML BAG (PRE-DOCKED) IVPB SCH (10:30)
[2017-10-06] MEDS ORDERED: METRONIDAZOLE 500 MG PREMIXED 500 MG/100 ML MG IVPB ONE (10:45)
[2017-10-06] MEDS: METOPROLOL SUCCINATE 50 MG TAB.SR.24H (FP) PO SCH (10:52)
[2017-10-06] MEDS: LOSARTAN POTASSIUM 100 MG TABLET PO SCH (10:52)
[2017-10-06] MEDS: HYDROCHLOROTHIAZIDE 25 MG TABLET (FP) PO SCH (10:52)
[2017-10-06] MEDS: METRONIDAZOLE 500 MG PREMIXED 500 MG/100 ML MG IVPB SCH ×2 (10:53→18:25)
[2017-10-06] MEDS ORDERED: LEVOFLOXACIN 500 MG IVPB 500 MG/100 ML BAG IVPB ONE (16:30)
[2017-10-06] MEDS ORDERED: MIDAZOLAM HCL 2 MG/2 ML SINGLE DOSE VIAL IVPUSH ONE (16:30)
--- NOTE | 2017-10-06 18:01 | PN ---
Teaching Attending Note Name of Resident: Daniel Dotson ATTENDING PHYSICIAN STATEMENT Time of evaluation: 10:30 AM I saw and evaluated the patient. I reviewed the resident's note and discussed the case with the resident. I agree with the resident's findings and plan as documented. SUBJECTIVE: Patient seen and examined. reports hematuria and some pelvic pain over last some time. Loose stools, diarrhea, reports is since . No other complaints. OBJECTIVE: Vital Signs Period Temp Pulse Resp BP Sys/Glasgow Pulse Ox Last 24 Hr 97.8 F-98.8 F 62-87 14-20 114-148/61-80 98-100 Intake & Output 10/03/17 10/04/17 10/05/17 10/06/17 23:59 23:59 23:59 23:59 Weight 132 lb 132 lb General: lying in bed in no acute distress CVS:S1S2 regular Chest: CTAB, no rales or wheezing abdomen: soft, mild pelvic/suprapubic tenderness, no voluntary or involuntary guarding or rigidity, positive bowel sounds extremities. No edema rectal/genital: deferred per patient request Home Medication List Medication Instructions Recorded Confirmed Type Losartan/Hydrochlorothiazide 1 each PO DAILY 10/05/17 10/05/17 History [Losartan-Hctz 100-25 mg Tab] Metoprolol Succinate 50 mg PO DAILY 10/05/17 10/05/17 History Active Medications Generic Name Dose Route Start Last Admin Trade Name Freq PRN Reason Stop Dose Admin Acetaminophen 500 mg 10/05/17 22:36 Tylenol - PO Q4H PRN PAIN Hydrochlorothiazide 25 mg 10/05/17 21:45 10/06/17 10:52 Hctz - PO 25 mg DAILY RICO Administration Sodium Chloride 1,000 mls @ 83 mls/hr 10/05/17 21:45 10/05/17 22:14 Normal Saline - IV 83 mls/hr ASDIR RICO Administration Metronidazole 500 mg in 100 mls @ 100 mls/hr 10/06/17 10:30 10/06/17 10:53 Flagyl 500mg Premixed Ivpb - IVPB 100 mls/hr Q8H-IV RICO Administration CEFTRIAXONE 1 G/50 ML PREMIX 50 mls @ 100 mls/hr 10/06/17 10:45 Ceftriaxone 1 Gm-D5w Bag IVPB DAILY RICO Losartan Potassium 100 mg 10/05/17 21:45 01/19/18 10:52 Losartan Potassium PO 100 mg DAILY RICO Administration Metoprolol Succinate 50 mg 10/05/17 21:30 10/06/17 10:52 Toprol Xl - PO 50 mg DAILY RICO Administration Laboratory Results - last 24 hr 10/06/17 10/06/17 07:09 07:09 WBC 10.9 H RBC 3.31 L Hgb 8.8 L Hct 28.0 L MCV 84.6 MCH 26.7 MCHC 31.6 L RDW 15.2 Plt Count 513 H MPV 7.8 Neutrophils % 63.0 Lymphocytes % 28.6 Monocytes % 5.2 Eosinophils % 2.7 D Basophils % 0.5 Sodium 138 Potassium 4.6 Chloride 104 Carbon Dioxide 24 Anion Gap 10 BUN 22 H Creatinine 1.2 H Creat Clearance w eGFR 45.09 Random Glucose 85 Calcium 9.1 Total Bilirubin 0.3 D AST 17 ALT 22 Alkaline Phosphatase 77 Total Protein 7.[address] A/P: possible vesicovaginal fistula, possible proctitis, s/p hysterectomy ASSESSMENT AND PLAN: 66 yof with PMHx of endometrial Ca s/p BATSHEVA/BSO in , s/p XRT, admitted with hematuria, chronic diarrhea found with possible vesicovaginal fistula, proctitis , bilateral hydroureteronephrosis. -Possible vesicovaginal fistula -Biateral hydroureteronephrosis -?proctitis -h/o endometrial cancer s/p ANTOINE/CAROLE in -HTN Plan: Urology input noted. IR input noted, ultrasound with no hydronephrosis, no nephrostomy tube placed. Await gynecology input as suspect XRT related changes in the pelvis+/- new mass contributory to current ?vesicovaginal fistula and obstructive uropathy. ID input appreciated. Ceftriaxone/flagyl. ?proctisis, unclear if from XRT or surrounding inflammatory process. Chronic diarrhea, no recent change. Monitor for now. DVTPPX with SCDs. Start heparin in 24 hours if no concerning hematuria or bleed noted. Continue home anti-hypertensives. Plan discussed in detail with patient, all questions answered.
[2017-10-06] MEDS ORDERED: LOPERAMIDE HCL 2 MG CAPSULE PO ONE (18:05)
--- NOTE | 2017-10-06 18:15 | CON.GI ---
Consult Consult Specialty:: GI - History of Present Illness History of Present Illness: Chart reviewed. Events and procedures noted. History from chart and the patient via interpreters (relative and pt's nurse at bedside). 66 yo female with a history of uterine cancer and a hysterectomy and adjuvant radaition 20+ y ago comes in today with lower abdominal pain, and bleeding per rectum and vagina for the past 4 days. Bleeding described as small blood clots. Never had colonoscopy. Reports 30lb weight loss. No dysphagia, odynophagia, dyspepsia, GERD-like symptoms. Ne melena, hematochezia, or changes i stool caliper prior to [address] shows b/l hydronephrosis and a pelvic mass. - History Source History Provided By: Patient, Family Member, Caregiver - Past Medical History Cardio/Vascular: Yes: HTN Renal/: Yes: UTI - Past Surgical History Past Surgical History: Yes: Hysterectomy - Alcohol/Substance Use Hx Alcohol Use: No - Smoking History Smoking history: Former smoker Have you smoked in the past 12 months: No Aproximately how many cigarettes per day: 0 If you are a former smoker, when did you quit?: 2009 - Social History Usual Living Arrangement: With Child ADL: Independent History of Recent Travel: No Home Medications - Allergies Allergies/Adverse Reactions: Allergies Allergy/AdvReac Type Severity Reaction Status Date / Time No Known Allergies Allergy Verified 10/05/17 11:55 - Home Medications Home Medications: Ambulatory Orders Nitrofurantoin Monohyd/M-Cryst [Macrobid -] 100 mg PO BID #14 capsule 12/26/16 Losartan/Hydrochlorothiazide [Losartan-Hctz 100-25 mg Tab] 1 each PO DAILY 10/05 Metoprolol Succinate 50 mg PO DAILY 10/05/17 Loperamide HCl [Loperamide] 2 mg PO ONCE #1 tablet 10/06/17 Family Disease History - Family Disease History Family History: Unremarkable Review of Systems Findings/Remarks: as per HPI, H&P Physical Exam-GI Vital Signs: Vital Signs Temperature 97.8 F 10/06/17 16:59 Pulse Rate 67 10/06/17 16:59 Respiratory Rate 20 10/06/17 16:59 Blood Pressure 121/61 10/06/17 16:59 O2 Sat by Pulse Oximetry (%) 100 10/06/17 16:59 Constitutional: Yes: Well Nourished, No Distress, Calm Eyes: Yes: Conjunctiva Clear HENT: Yes: Atraumatic Neck: Yes: Supple Cardiovascular: Yes: Regular Rate and Rhythm Respiratory: Yes: Regular Neurological: Yes: Alert, Oriented Labs: CBC, BMP 10/06/17 07:09 10/06/17 07:09 INR, PTT INR 1.35 (0.82-1.09) H 10/05/17 13:13 Laboratory Tests 10/05/17 10/05/17 10/05/17 12:37 13:13 13:13 WBC 13.5 H D RBC 3.39 L Hgb 9.0 L D Hct 28.4 L D MCV 83.7 MCH 26.7 MCHC 31.9 L RDW 15.9 H D Plt Count 571 H D MPV 7.9 D Neutrophils % 69.9 Lymphocytes % 24.0 Monocytes % 4.6 Eosinophils % 0.8 Basophils % 0.7 PT with INR 15.20 H INR 1.35 H PTT (Actin FS) 29.3 Sodium Potassium Chloride Carbon Dioxide Anion Gap BUN Creatinine Creat Clearance w eGFR Random Glucose Calcium Total Bilirubin AST ALT Alkaline Phosphatase Total Protein Albumin Urine Color Urine Appearance Urine pH Ur Specific [place] Urine Protein Urine Glucose (UA) Urine Ketones Urine Blood Urine Nitrite Urine Bilirubin Urine Urobilinogen Ur Leukocyte Esterase Urine WBC (Auto) Urine RBC (Auto) Ur Epithelial Cells Urine Bacteria Stool Occult Blood Positive Blood Type Antibody Screen 10/05/17 10/05/17 10/05/17 13:13 14:44 15:00 WBC RBC Hgb Hct MCV MCH MCHC RDW Plt Count MPV Neutrophils % Lymphocytes % Monocytes % Eosinophils % Basophils % PT with INR INR PTT (Actin FS) Sodium 136 Potassium 4.9 Chloride 103 Carbon Dioxide 22 Anion Gap 11 BUN 26 H Creatinine 1.4 H Creat Clearance w eGFR 37.74 Random Glucose 100 Calcium 9.1 Total Bilirubin 0.5 D AST 19 ALT 24 Alkaline Phosphatase 86 Total Protein 8.5 H Albumin 3.3 L Urine Color Ltyellow Urine Appearance Slcloudy Urine pH 6.0 Ur Specific [place] 1.003 Urine Protein 1+ H Urine Glucose (UA) Negative Urine Ketones Negative Urine Blood 3+ H Urine Nitrite Negative Urine Bilirubin Negative Urine Urobilinogen Negative Ur Leukocyte Esterase 3+ H Urine WBC (Auto) 134 Urine RBC (Auto) 9 Ur Epithelial Cells Rare Urine Bacteria Rare Stool Occult Blood Blood Type A POSITIVE Antibody Screen Negative 10/06/17 10/06/17 07:09 07:09 WBC 10.9 H RBC 3.31 L Hgb 8.8 L Hct 28.0 L MCV 84.6 MCH 26.7 MCHC 31.6 L RDW 15.2 Plt Count 513 H MPV 7.8 Neutrophils % 63.0 Lymphocytes % 28.6 Monocytes % 5.2 Eosinophils % 2.7 D Basophils % 0.5 PT with INR INR PTT (Actin FS) Sodium 138 Potassium 4.6 Chloride 104 Carbon Dioxide 24 Anion Gap 10 BUN 22 H Creatinine 1.2 H Creat Clearance w eGFR 45.09 Random Glucose 85 Calcium 9.1 Total Bilirubin 0.3 D AST 17 ALT 22 Alkaline Phosphatase 77 Total Protein 7.7 Albumin 2.9 L Urine Color Urine Appearance Urine pH Ur Specific [place] Urine Protein Urine Glucose (UA) Urine Ketones Urine Blood Urine Nitrite Urine Bilirubin Urine Urobilinogen Ur Leukocyte Esterase Urine WBC (Auto) Urine RBC (Auto) Ur Epithelial Cells Urine Bacteria Stool Occult Blood Blood Type Antibody Screen Imaging - Results Cat Scan: Report Reviewed Ultrasound: Report Reviewed Problem List - Problems (1) Hematochezia Code(s): K92.1 - MELENA (2) Abnormal CT of the abdomen Code(s): R93.5 - ABN FINDINGS ON DX IMAGING OF ABD REGIONS, INC RETROPERITON (3) Abnormal CT scan Code(s): R93.8 - ABNORMAL FINDINGS ON DIAGNOSTIC IMAGING OF BODY STRUCTURES (4) Hydronephrosis Code(s): N13.30 - UNSPECIFIED HYDRONEPHROSIS Qualifiers: Hydronephrosis type: unspecified Qualified Code(s): N13.30 - Unspecified hydronephrosis (5) Rectal bleeding Code(s): K62.5 - HEMORRHAGE OF ANUS AND RECTUM (6) UTI (urinary tract infection) Code(s): N39.0 - URINARY TRACT INFECTION, SITE NOT SPECIFIED Qualifiers: Urinary tract infection type: site unspecified Hematuria presence: with hematuria Qualified Code(s): N39.0 - Urinary tract infection, site not specified; R31.9 - Hematuria, unspecified; R31.9 - Hematuria, unspecified Assessment/Plan A hematochezia with rectal thickening in a patient with significant weight loss , history of uterine cancer and XRT to the pelvis who never had colonoscopy. Hemodynamically stable with normocytic, normochromic anemia, which is likely multifactorial in nature. Mild hypocoagulable state. /DEHYDROGENATION SUPERVISOR evaluation Plan colonoscopy to assess for colorectal cancer, radiation proctopathy/ colopathy, other intraluminal lesion Avoid NSAIDs Monitor for ongoing bleeding and transfuse if Hgb <7 g/dl Colonoscopy was discussed with the patient.
[2017-10-06] MEDS: SODIUM CHLORIDE 1,000 ML IV SCH (18:28)
[2017-10-06] MEDS: CEFTRIAXONE 1 G/50 ML PREMIX 50 ML IVPB SCH (21:01)
[2017-10-07] MEDS: SODIUM CHLORIDE 1,000 ML IV SCH ×2 (01:35→08:19)
[2017-10-07] MEDS: METRONIDAZOLE 500 MG PREMIXED 500 MG/100 ML MG IVPB SCH ×3 (01:41→17:02)
[2017-10-07] MEDS ORDERED: PT OWN MED DRAWER 7, Y5N ONE ×2 (08:15→08:46)
[2017-10-07] MEDS: METOPROLOL SUCCINATE 50 MG TAB.SR.24H (FP) PO SCH (09:09)
[2017-10-07] MEDS: CEFTRIAXONE 1 G/50 ML PREMIX 50 ML IVPB SCH (09:09)
[2017-10-07] MEDS: LOSARTAN POTASSIUM 100 MG TABLET PO SCH (09:09)
[2017-10-07] MEDS: HYDROCHLOROTHIAZIDE 25 MG TABLET (FP) PO SCH (09:09)
[2017-10-07 09:10] LABS: ALBUMIN 2.5 g/dl (3.4-5.0); ANION GAP 8 (8-16); BLOOD UREA NITROGEN 20 mg/dL (7-18); CALCIUM 8.3 mg/dL (8.5-10.1); CHLORIDE 108 mmol/L (98-107); CO2 22 mmol/L (21-32); GLUCOSE,RANDOM 79 mg/dL (74-106); POTASSIUM 4.3 mmol/L (3.5-5.1); SODIUM 138 mmol/L (136-145)
[2017-10-07 09:14] LABS: ALK PHOS 66 U/L (45-117); BILIRUBIN,TOTAL 0.5 mg/dL (0.2-1.0); CREATININE 1.3 mg/dL (0.55-1.02); PHOSPHOROUS 3.6 mg/dL (2.5-4.9); SGOT/AST 14 U/L (15-37); SGPT/ALT 20 U/L (12-78); TOT PROT 6.9 g/dl (6.4-8.2)
[2017-10-07 11:27] LABS: BASO % 0.4 % (0-2.0); EOS % 2.9 % (0-4.5); HEMATOCRIT 26.3 % (32.4-45.2); HEMOGLOBIN 8.3 GM/dL (10.7-15.3); INR 1.43 (0.82-1.09); LYMPH % 28.9 % (8-40); MCH 26.6 pg (25.7-33.7); MCHC 31.5 g/dl (32.0-36.0); MEAN CELL VOLUME 84.4 fl (80-96); MEAN PLT VOLUME 7.9 fl (7.5-11.1); MONO % 5.7 % (3.8-10.2); NEUT % 62.1 % (42.8-82.8); PLATELET COUNT 456 K/MM3 (134-434); PROTHROMBIN TIME (PATIENT) 16.2 SEC (9.98-11.88); RBC 3.12 M/mm3 (3.60-5.2); RDW 15.7 % (11.6-15.6); WHITE BLOOD COUNT 8.8 K/mm3 (4.0-10.0)
--- NOTE | 2017-10-07 13:37 | PN ---
Progress Note (short form) - Note Progress Note: PCNs not done due to lack of significant renal pelvis dilation. 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 Awaiting STONE AND PLATE PREPARER APPRENTICE ONC input. Consider transfer to tertiary care center for definitive management Problem List - Problems (1) Hydronephrosis Code(s): N13.30 - UNSPECIFIED HYDRONEPHROSIS Qualifiers: Hydronephrosis type: unspecified Qualified Code(s): N13.30 - Unspecified hydronephrosis
--- NOTE | 2017-10-07 16:36 | PN ---
Teaching Attending Note Name of Resident: . ATTENDING PHYSICIAN STATEMENT Time of evaluation: 8:10 AM I saw and evaluated the patient. I reviewed the resident's note and discussed the case with the resident. I agree with the resident's findings and plan as documented. SUBJECTIVE: Patient seen and examined. overall unchanged, some hematuria and mild lower abdominal pain. No new complaints. OBJECTIVE: Vital Signs Period Temp Pulse Resp BP Sys/Glasgow Pulse Ox Last 24 Hr 97.8 F-98.8 F 64-81 16-20 109-140/44-68 99-100 Intake & Output 10/04/17 10/05/17 10/06/17 10/07/17 23:59 23:59 23:59 23:59 Intake Total 300 1000 Balance 300 1000 Weight 132 lb 130 lb 14.4 oz General; Sitting in bed in no acute distress Abdomen: soft, NT today, ND, positive bowel sounds extremities: no edema Chest: CTAB, no rales or wheezing Home Medication List Medication Instructions Recorded Confirmed Type Losartan/Hydrochlorothiazide 1 each PO DAILY 10/05/17 10/05/17 History [Losartan-Hctz 100-25 mg Tab] Metoprolol Succinate 50 mg PO DAILY 10/05/17 10/05/17 History Active Medications Generic Name Dose Route Start Last Admin Trade Name Freq PRN Reason Stop Dose Admin Acetaminophen 500 mg 10/05/17 22:36 10/07/17 08:16 Tylenol - PO 500 mg Q4H PRN Administration PAIN Hydrochlorothiazide 25 mg 10/05/17 21:45 10/07/17 09:09 Hctz - PO 25 mg DAILY RICO Administration Sodium Chloride 1,000 mls @ 83 mls/hr 10/05/17 21:45 10/07/17 08:19 Normal Saline - IV 83 mls/hr ASDIR RICO Administration Metronidazole 500 mg in 100 mls @ 100 mls/hr 10/06/17 10:30 10/07/17 10:20 Flagyl 500mg Premixed Ivpb - IVPB 100 mls/hr Q8H-IV RICO Administration CEFTRIAXONE 1 G/50 ML PREMIX 50 mls @ 100 mls/hr 10/06/17 10:45 10/07/17 09: 09 Ceftriaxone 1 Gm-D5w Bag IVPB 100 mls/hr DAILY RICO Administration Losartan Potassium 100 mg 10/05/17 21:45 10/07/17 09:09 Losartan Potassium PO 100 mg DAILY RICO Administration Metoprolol Succinate 50 mg 10/05/17 21:30 10/07/17 09:09 Toprol Xl - PO 50 mg DAILY RICO Administration Laboratory Results - last 24 hr 10/07/17 10/07/17 10/07/17 07:30 07:30 07:30 WBC 8.8 RBC 3.12 L Hgb 8.3 L Hct 26.3 L MCV 84.4 MCH 26.6 MCHC 31.5 L RDW 15.7 H Plt Count 456 H MPV 7.9 Neutrophils % 62.1 Lymphocytes % 28.9 Monocytes % 5.7 Eosinophils % 2.9 Basophils % 0.4 PT with INR 16.20 H INR 1.43 H Sodium 138 Potassium 4.3 Chloride 108 H Carbon Dioxide 22 Anion Gap 8 BUN 20 H Creatinine 1.3 H Creat Clearance w eGFR 41.11 Random Glucose 79 Calcium 8.3 L Phosphorus 3.6 Magnesium 2.0 Total Bilirubin 0.5 D AST 14 L ALT 20 Alkaline Phosphatase 66 Total Protein 6.9 Albumin 2.5 L Microbiology 10/05/17 19:15 Blood - Peripheral Venous Blood Culture - Preliminary NO GROWTH OBTAINED AFTER 24 HOURS, INCUBATION TO CONTINUE FOR 4 DAYS. 10/05/17 19:15 Blood - Peripheral Venous Blood Culture - Preliminary NO GROWTH OBTAINED AFTER 24 HOURS, INCUBATION TO CONTINUE FOR 4 DAYS. ASSESSMENT AND PLAN: 66 yof with PMHx of endometrial Ca s/p BATSHEVA/BSO in , s/p XRT, admitted with hematuria, chronic diarrhea found with possible vesicovaginal fistula, proctitis , bilateral hydroureteronephrosis. 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 IR input noted, ultrasound with no hydronephrosis, no nephrostomy tube placed. Discussed with Dr. Loyola, recommend aircraft structural fitter onc vs urogynecologist, Will be provided information on the same as suspect XRT related changes in the pelvis+/ - new mass contributory to current ?vesicovaginal fistula and obstructive uropathy. ID input appreciated. Ceftriaxone/flagyl ay 3. ?proctisis, unclear if from XRT or surrounding inflammatory process. Chronic diarrhea, no recent change. GI input appreciated, will follow up for additional recs. DVTPPX start heparin for DVTPPx Continue home anti-hypertensives. Plan discussed in detail with patient, all questions answered.
[2017-10-07] MEDS ORDERED: HEPARIN NA (PORCINE) 5,000 UNITS/ML 1ML VIAL SQ SCH (22:00)
[2017-10-08] MEDS: SODIUM CHLORIDE 1,000 ML IV SCH ×3 (00:14→21:37)
[2017-10-08] MEDS: METRONIDAZOLE 500 MG PREMIXED 500 MG/100 ML MG IVPB SCH ×3 (01:45→19:36)
--- NOTE | 2017-10-08 04:57 | CON.OBG ---
Consult Consult Specialty:: OBGYN Referred by:: Dr. Mancuso Reason for Consultation:: Abdominal pain - History of Present Illness Chief Complaint: Abdominal pain History of Present Illness: 66 yo with h/o endometrial neoplasm followed by BATSHEVA / BSO and radiation therapy 27 years ago, admitted due to complaints of abdominal pain, Diarrhea and blood in urine. She had imaging studies showing evidence of absence of uterus and ovaries with vesicovaginal fistula. - History Source History Provided By: Family Member Limitations to Obtaining History: Language Barrier - Past Medical History Cardio/Vascular: Yes: HTN Renal/: Yes: UTI ...: No - Past Surgical History Past Surgical History: Yes: Hysterectomy - Alcohol/Substance Use Hx Alcohol Use: No - Smoking History Smoking history: Former smoker Have you smoked in the past 12 months: No Aproximately how many cigarettes per day: 0 If you are a former smoker, when did you quit?: 2009 - Social History Usual Living Arrangement: With Child ADL: Independent History of Recent Travel: No Home Medications - Allergies Allergies/Adverse Reactions: Allergies Allergy/AdvReac Type Severity Reaction Status Date / Time No Known Allergies Allergy Verified 10/05/17 11:55 - Home Medications Home Medications: Ambulatory Orders Nitrofurantoin Monohyd/M-Cryst [Macrobid -] 100 mg PO BID #14 capsule 12/26/16 Losartan/Hydrochlorothiazide [Losartan-Hctz 100-25 mg Tab] 1 each PO DAILY 10/05 Metoprolol Succinate 50 mg PO DAILY 10/05/17 Loperamide HCl [Loperamide] 2 mg PO ONCE #1 tablet 10/06/17 Family Disease History - Family Disease History Family History: Unable to Obtain Review of Systems - Review of Systems Constitutional: reports: Unintentional Wgt. Loss Eyes: reports: No Symptoms HENT: reports: No Symptoms Neck: reports: No Symptoms Cardiovascular: reports: No Symptoms Respiratory: reports: No Symptoms Gastrointestinal: reports: Abdominal Pain, Diarrhea Genitourinary: reports: Hematuria Breasts: reports: No Symptoms Reported Musculoskeletal: reports: No Symptoms Neurological: reports: No Symptoms Endocrine: reports: No Symptoms Hematology/Lymphatic: reports: No Symptoms Psychiatric: reports: No Symptoms Pain Intensity: 4 Physical Exam-ADMIN ASSISTANT Vital Signs: Vital Signs Temperature 98.5 F 10/08/17 02:10 Pulse Rate 70 10/08/17 02:10 Respiratory Rate 18 10/08/17 02:10 Blood Pressure 118/62 10/08/17 02:10 O2 Sat by Pulse Oximetry (%) 100 10/07/17 21:00 Constitutional: Yes: Thin Eyes: Yes: Conjunctiva Clear HENT: Yes: Atraumatic Neck: Yes: Supple, Trachea Midline Cardiovascular: Yes: Regular Rate and Rhythm Respiratory: Yes: Regular, CTA Bilaterally Gastrointestinal: No: Palpable Mass, Rectal Bleeding Pelvis: No: Tenderness External Genitalia: Yes: Normal Internal Exam Deferred: Yes Vaginal Exam: No: Bleeding, Discharge Cervix: No: Bleeding, Cerv Motion Tenderness, Lesion Uterus: Yes: Other (Absent) Neurological: Yes: Alert, Oriented ...Motor Strength: WNL Psychiatric: Yes: Alert, Oriented Labs: CBC, BMP 10/07/17 07:30 10/07/17 07:30 Problem List - Problems (1) H/O malignant neoplasm of endometrium Code(s): Z85.42 - PERSONAL HISTORY OF MALIGNANT NEOPLASM OF OTH PRT UTERUS Assessment/Plan Personal h/o malignant neoplasm of the uterus Hematuria Abdominal pain Vesicovaginal fistula Plan : Uro/ Director Project Management consult recommended ADMIN ASSISTANT / Onc consult recommended
[2017-10-08 07:56] LABS: ANION GAP 8 (8-16); BLOOD UREA NITROGEN 18 mg/dL (7-18); CALCIUM 8.3 mg/dL (8.5-10.1); CHLORIDE 111 mmol/L (98-107); CO2 23 mmol/L (21-32); CREATININE 1.3 mg/dL (0.55-1.02); GLUCOSE,RANDOM 88 mg/dL (74-106); POTASSIUM 4.2 mmol/L (3.5-5.1); SODIUM 142 mmol/L (136-145)
[2017-10-08 08:12] LABS: BASO % 0.9 % (0-2.0); EOS % 4.9 % (0-4.5); HEMATOCRIT 24.7 % (32.4-45.2); HEMOGLOBIN 7.7 GM/dL (10.7-15.3); LYMPH % 38.1 % (8-40); MCH 26.2 pg (25.7-33.7); MCHC 31.3 g/dl (32.0-36.0); MEAN CELL VOLUME 83.7 fl (80-96); MEAN PLT VOLUME 7.6 fl (7.5-11.1); NEUT % 49.1 % (42.8-82.8); PLATELET COUNT 427 K/MM3 (134-434); RBC 2.95 M/mm3 (3.60-5.2); RDW 15.5 % (11.6-15.6); WHITE BLOOD COUNT 7.4 K/mm3 (4.0-10.0)
[2017-10-08] MEDS ORDERED: PT OWN MED DRAWER 7, Y5N ONE (09:09)
[2017-10-08] MEDS: CEFTRIAXONE 1 G/50 ML PREMIX 50 ML IVPB SCH (09:46)
[2017-10-08] MEDS: LOSARTAN POTASSIUM 100 MG TABLET PO SCH (09:47)
[2017-10-08] MEDS: HYDROCHLOROTHIAZIDE 25 MG TABLET (FP) PO SCH (09:47)
[2017-10-08] MEDS: METOPROLOL SUCCINATE 50 MG TAB.SR.24H (FP) PO SCH (09:47)
--- NOTE | 2017-10-08 12:26 | PN ---
Teaching Attending Note Name of Resident: . ATTENDING PHYSICIAN STATEMENT Time of evaluation: 9;25 AM SUBJECTIVE: patient seen and examined. OBJECTIVE: ASSESSMENT AND PLAN:
--- NOTE | 2017-10-08 12:46 | PN ---
Teaching Attending Note Name of Resident: . ATTENDING PHYSICIAN STATEMENT Time of evaluation: 9:40 AM SUBJECTIVE: Patient seen and examined. ongoing intermittent hematuria, some pelvic pain and chronic diarrhea that's unchanged. No new complaints. OBJECTIVE: Vital Signs Period Temp Pulse Resp BP Sys/Glasgow Pulse Ox Last 24 Hr 98.5 F-98.9 F 64-70 18-20 109-129/44-62 100 Intake & Output 10/05/17 10/06/17 10/07/17 10/08/17 23:59 23:59 23:59 23:59 Intake Total 300 2980 1000 Balance 300 2980 1000 Weight 132 lb 130 lb 14.4 oz General: sitting in bed in no acute distress CVS:S1S2 regular Chest: CTAB, no rales or wheezing abdomen: soft, RLQ pain right above tuberosity, NT otherwise, no voluntary or involuntary guarding or rigidity, positive bowel sounds extremities: no edema Home Medication List Medication Instructions Recorded Confirmed Type Losartan/Hydrochlorothiazide 1 each PO DAILY 10/05/17 10/05/17 History [Losartan-Hctz 100-25 mg Tab] Metoprolol Succinate 50 mg PO DAILY 10/05/17 10/05/17 History Active Medications Generic Name Dose Route Start Last Admin Trade Name Freq PRN Reason Stop Dose Admin Acetaminophen 500 mg 10/05/17 22:36 10/07/17 08:16 Tylenol - PO 500 mg Q4H PRN Administration PAIN Hydrochlorothiazide 25 mg 10/05/17 21:45 10/08/17 09:47 Hctz - PO 25 mg DAILY RICO Administration Sodium Chloride 1,000 mls @ 83 mls/hr 10/05/17 21:45 10/08/17 01:18 Normal Saline - IV Not Given ASDIR RICO Metronidazole 500 mg in 100 mls @ 100 mls/hr 10/06/17 10:30 10/08/17 09:45 Flagyl 500mg Premixed Ivpb - IVPB 100 mls/hr Q8H-IV RICO Administration CEFTRIAXONE 1 G/50 ML PREMIX 50 mls @ 100 mls/hr 10/06/17 10:45 10/08/17 09: 46 Ceftriaxone 1 Gm-D5w Bag IVPB 100 mls/hr DAILY RICO Administration Losartan Potassium 100 mg 10/05/17 21:45 10/08/17 09:47 Losartan Potassium PO 100 mg DAILY RICO Administration Metoprolol Succinate 50 mg 10/05/17 21:30 10/08/17 09:47 Toprol Xl - PO 50 mg DAILY RICO Administration Laboratory Results - last 24 hr 10/08/17 10/08/17 07:21 07:21 WBC 7.4 RBC 2.95 L Hgb 7.7 L Hct 24.7 L MCV 83.7 MCH 26.2 MCHC 31.3 L RDW 15.5 Plt Count 427 MPV 7.6 Neutrophils % 49.1 D Lymphocytes % 38.1 D Monocytes % 7.0 Eosinophils % 4.9 H Basophils % 0.9 Sodium 142 Potassium 4.2 Chloride 111 H Carbon Dioxide 23 Anion Gap 8 BUN 18 Creatinine 1.3 H Random Glucose 88 Calcium 8.3 L Microbiology 10/05/17 19:15 Blood - Peripheral Venous Blood Culture - Preliminary NO GROWTH OBTAINED AFTER 48 HOURS, INCUBATION TO CONTINUE FOR 3 DAYS. 10/05/17 19:15 Blood - Peripheral Venous Blood Culture - Preliminary NO GROWTH OBTAINED AFTER 48 HOURS, INCUBATION TO CONTINUE FOR 3 DAYS. ASSESSMENT AND PLAN: 66 yof with PMHx of endometrial Ca s/p BATSHEVA/BSO in , s/p XRT, admitted with hematuria, chronic diarrhea found with possible vesicovaginal fistula, proctitis , bilateral hydroureteronephrosis. 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 IR input noted, ultrasound with no hydronephrosis, no nephrostomy tube placed. Dr. Yuen's input appreciated. discussed with lever miller onc Dr. Costa, discussed case and CT findings in detail, will follow up for additional recs. Patient currently stable with no new concerns, monitor closely for now. Plan for inhouse treatment vs tertiary care transfer accordingly. ID input appreciated. Ceftriaxone/flagyl ay 4. ?proctisis, unclear if from XRT or surrounding inflammatory process. Transfuse 1 unit PRBC if anticipate surgery, in the setting of ongoing hematuria. Check iron panel before transfusion. Chronic diarrhea, no recent change. GI input appreciated, will follow up for additional recs. DVTPPX hold heparin, place on SCDs Continue home anti-hypertensives. Plan discussed in detail with patient, all questions answered.
[2017-10-08] MEDS ORDERED: LOPERAMIDE HCL 1 MG/5 ML UNIT DOSE CUP PO ONE (20:15)
[2017-10-09] MEDS: METRONIDAZOLE 500 MG PREMIXED 500 MG/100 ML MG IVPB SCH ×3 (01:27→18:15)
--- NOTE | 2017-10-09 07:06 | PN ---
Physical Exam: SUBJECTIVE: Patient seen and examined by this AM - Still with intermittent hematuria, pelvic pain, diarrhea over the weekend. Seen by Dr. Loyola, recommended marine resource economist/onc consult; Dr. Costa aware, following and will see pt tomorrow in hospital - Colonoscopy tomorrow w/ Dr. Barrientos for further evaluation of possible radiation proctitis, cancer, intraluminal lesions - Comfortable overnight. Still with mild hematuria. No CP, SOB, ab pain, N/V, peripheral weakness/numbness, vaginal bleeding, fever/chills, dizziness/MELGAR OBJECTIVE: Vital Signs Intake & Output 10/06/17 10/07/17 10/08/17 10/09/17 23:59 23:59 23:59 23:59 Intake Total 300 2980 3411 715 Balance 300 2980 3411 715 Weight 59.375 kg Period Temp Pulse Resp BP Sys/Glasgow Pulse Ox Last 24 Hr 98.1 F-99.0 F 64-75 18-18 118-144/58-86 100-100 GENERAL: The patient is awake, alert, and fully oriented, in no acute distress. HEAD: Normal with no signs of trauma. EYES: PERRL, extraocular movements intact, sclera anicteric, conjunctiva clear. No ptosis. ENT: Ears normal, nares patent, oropharynx clear without exudates, moist mucous membranes. NECK: Trachea midline, full range of motion, supple. LUNGS: Breath sounds equal, clear to auscultation bilaterally, no wheezes, no crackles, no accessory muscle use. HEART: Regular rate and rhythm, S1, S2 without murmur, rub or gallop. ABDOMEN: Soft, nontender, nondistended, normoactive bowel sounds, no guarding, no rebound, no hepatosplenomegaly, no masses. No CVA tenderness. EXTREMITIES: 2+ pulses, warm, well-perfused, no edema. NEUROLOGICAL: Cranial nerves II through XII grossly intact. Normal speech, gait not observed. PSYCH: Normal mood, normal affect. SKIN: Warm, dry, normal turgor, no rashes or lesions noted Laboratory Results - last 24 hr CBC, BMP 10/09/17 07:15 10/09/17 07:15 10/08/17 07:21 10/08/17 07:21 10/08/17 10/08/17 10/08/17 07:21 07:21 12:53 WBC 7.4 RBC 2.95 L Hgb 7.7 L Hct 24.7 L MCV 83.7 MCH 26.2 MCHC 31.3 L RDW 15.5 Plt Count 427 MPV 7.6 Neutrophils % 49.1 D Lymphocytes % 38.1 D Monocytes % 7.0 Eosinophils % 4.9 H Basophils % 0.9 Sodium 142 Potassium 4.2 Chloride 111 H Carbon Dioxide 23 Anion Gap 8 BUN 18 Creatinine 1.3 H Random Glucose 88 Calcium 8.3 L Ferritin Blood Type A POSITIVE Antibody Screen Negative Crossmatch See Detail 10/08/17 13:02 WBC RBC Hgb Hct MCV MCH MCHC RDW Plt Count MPV Neutrophils % Lymphocytes % Monocytes % Eosinophils % Basophils % Sodium Potassium Chloride Carbon Dioxide Anion Gap BUN Creatinine Random Glucose Calcium Ferritin 232.249 Blood Type Antibody Screen Crossmatch Active Medications Generic Name Dose Route Start Last Admin Trade Name Freq PRN Reason Stop Dose Admin Acetaminophen 500 mg 10/05/17 22:36 10/07/17 08:16 Tylenol - PO 500 mg Q4H PRN Administration PAIN Hydrochlorothiazide 25 mg 10/05/17 21:45 10/08/17 09:47 Hctz - PO 25 mg DAILY RICO Administration Sodium Chloride 1,000 mls @ 83 mls/hr 10/05/17 21:45 10/08/17 21:37 Normal Saline - IV 83 mls/hr ASDIR RICO Administration Metronidazole 500 mg in 100 mls @ 100 mls/hr 10/06/17 10:30 10/09/17 01:27 Flagyl 500mg Premixed Ivpb - IVPB 100 mls/hr Q8H-IV RICO Administration CEFTRIAXONE 1 G/50 ML PREMIX 50 mls @ 100 mls/hr 10/06/17 10:45 10/08/17 09: 46 Ceftriaxone 1 Gm-D5w Bag IVPB 100 mls/hr DAILY RICO Administration Losartan Potassium 100 mg 10/09/17 10:00 Cozaar - PO DAILY RICO Metoprolol Succinate 50 mg 10/05/17 21:30 10/08/17 09:47 Toprol Xl - PO 50 mg DAILY RICO Administration Microbiology 10/05/17 19:15 Blood - Peripheral Venous Blood Culture - Preliminary NO GROWTH OBTAINED AFTER 72 HOURS, INCUBATION TO CONTINUE FOR 2 DAYS. 10/05/17 19:15 Blood - Peripheral Venous Blood Culture - Preliminary NO GROWTH OBTAINED AFTER 72 HOURS, INCUBATION TO CONTINUE FOR 2 DAYS. -ABDOMINAL/PELVIC CT IMPRESSION: 1. Status post hysterectomy. Thickening of the vaginal fornix and circumferential urinary bladder wall thickening, which are inseparable from each other may be secondary to post radiation changes, however, active infectious/inflammatory processes or neoplasia cannot be entirely excluded. 2. Presence of gas locules within the urinary bladder and fluid within the vaginal fornix which appears to communicate with the right posterolateral wall of the urinary bladder - is extremely suspicious for vesicovaginal fistula. Emphysematous cystitis cannot be excluded. 3. Rectal wall thickening may be secondary to a nonspecific infectious or inflammatory proctitis. Neoplasm is not excluded. Circumferentially prominent sigmoid colon wall could be secondary to underdistention, however, colitis is not excluded. 4. Moderate right hydroureteronephrosis and mild left hydroureteronephrosis is likely secondary to scarring and/or extrinsic compression in the pelvis. This hydroureter is mildly increased since 03/14/13 CT. TVUS 10/05 - No discrete masses appreciated. Uterus, ovaries not seen. Trace fluid in the cul-de-sac EK/18 - NSR rate 86, NAD, QTC 406, no t-wave or ST changes ASSESSMENT/PLAN: 66 y/o F with PMH HTN, vaginal cancer and hysterectomy (27 yrs ago, radiation tx ), who presents to the ED with hematuria, diarrhea, and worsening abdominal pain over the last two months. #Suspected vesicovaginal fistula - Seen by Dr. loyola over weekend; recs Uro/ marine resource economist, marine resource economist onc consult - Plant Tour Guide/onc consulted - Dr. Costa aware, will see pt tomorrow for further evaluation - ID consulted - cont rocephin/flagyl for coverage - Serial H/H; transfuse at <7 - Monitor for continued hematuria - Avoid AC until no active bleeding - Tylenol for pain control - Consider possible retrograde cystogram per IR recs #BL hydronephrosis - No perc nephrostomy placement per IR on 10/06, as no evidence of hydronephrosis on U/S and high risk of bleeding; recommed retrograde cystogram - Urology consulted - recommend bx of suspicious perivesicular mass and BL nephrostomies - Urology following #Rectal bleeding/proctitis? - Never received colonoscopy in past; Colonoscopy tomorrow w/ Dr. Barrientos - Bowel prep overnight - clear liquid diet for now - GI consulted. Plan for colonoscopy tomorrow to assess for ca, proctitis, other lesions - avoids NSAIDs - Transfuse at <7 Hgb - FOBT + #BETHANY - 1.2 today -Daily BMPs - IVFs #leukocytosis - resolved - Trend fever, WBC count - monitor for infectious symptoms - cont ABx #Hx Endometrial CA - Plant Tour Guide/onc eval tomorrow - will f/u as outpt #Diarrhea - likely noninfectious, chronic - Imodium PRN - C diff toxin negative - Trend fever, WBC count - all cultures negative #HTN c/w home HTN meds PPX SCDs No heparin given persistent bleed FEN NS 83 cc/hr Daily BMPs Clear diet Plan discussed with attending, Dr. Jamee Dotson, PGY1 Visit type - Emergency Visit Emergency Visit: Yes ED Registration Date: 10/05/17 Care time: The patient presented to the Emergency Department on the above date and was hospitalized for further evaluation of their emergent condition. - New Patient This patient is new to me today: No - Critical Care Critical Care patient: No
[2017-10-09 08:06] LABS: SERUM IRON SATURATION 22 % (15-55); TOTAL IRON BINDING CAPACITY 193 ug/dL (250-450); UIBC 151 ug/dL (118-369)
[2017-10-09 08:23] LABS: BASO % 0.7 % (0-2.0); EOS % 4.3 % (0-4.5); HEMATOCRIT 34.4 % (32.4-45.2); HEMOGLOBIN 11.1 GM/dL (10.7-15.3); LYMPH % 40.6 % (8-40); MCH 27.1 pg (25.7-33.7); MCHC 32.3 g/dl (32.0-36.0); MEAN CELL VOLUME 84.1 fl (80-96); MEAN PLT VOLUME 7.9 fl (7.5-11.1); MONO % 6.1 % (3.8-10.2); NEUT % 48.3 % (42.8-82.8); PLATELET COUNT 510 K/MM3 (134-434); RBC 4.09 M/mm3 (3.60-5.2); RDW 15.3 % (11.6-15.6); WHITE BLOOD COUNT 8.8 K/mm3 (4.0-10.0)
--- NOTE | 2017-10-09 08:24 | PN ---
Teaching Attending Note Name of Resident: Daniel Dotson ATTENDING PHYSICIAN STATEMENT Time of evaluation: 9:20 AM I saw and evaluated the patient. I reviewed the resident's note and discussed the case with the resident. I agree with the resident's findings and plan as documented. SUBJECTIVE: patient seen and examined. Chronic diarrhea, intermittent hematuria, no new complaints. OBJECTIVE: Vital Signs Period Temp Pulse Resp BP Sys/Glasgow Pulse Ox Last 24 Hr 98.1 F-99.0 F 64-75 18-18 118-144/58-86 100-100 Intake & Output 10/06/17 10/07/17 10/08/17 10/09/17 23:59 23:59 23:59 23:59 Intake Total 300 2980 3411 715 Balance 300 2980 3411 715 Weight 130 lb 14.4 oz general: lying in bed in no acute distress Abdomen: unchanged pelvic pain, no new voluntary or involuntary guarding or rigidity Home Medication List Medication Instructions Recorded Confirmed Type Losartan/Hydrochlorothiazide 1 each PO DAILY 10/05/17 10/05/17 History [Losartan-Hctz 100-25 mg Tab] Metoprolol Succinate 50 mg PO DAILY 10/05/17 10/05/17 History Active Medications Generic Name Dose Route Start Last Admin Trade Name Freq PRN Reason Stop Dose Admin Acetaminophen 500 mg 10/05/17 22:36 10/07/17 08:16 Tylenol - PO 500 mg Q4H PRN Administration PAIN Hydrochlorothiazide 25 mg 10/05/17 21:45 10/08/17 09:47 Hctz - PO 25 mg DAILY RICO Administration Sodium Chloride 1,000 mls @ 83 mls/hr 10/05/17 21:45 10/08/17 21:37 Normal Saline - IV 83 mls/hr ASDIR RICO Administration Metronidazole 500 mg in 100 mls @ 100 mls/hr 10/06/17 10:30 10/09/17 01:27 Flagyl 500mg Premixed Ivpb - IVPB 100 mls/hr Q8H-IV RICO Administration CEFTRIAXONE 1 G/50 ML PREMIX 50 mls @ 100 mls/hr 10/06/17 10:45 10/08/17 09: 46 Ceftriaxone 1 Gm-D5w Bag IVPB 100 mls/hr DAILY RICO Administration Losartan Potassium 100 mg 10/09/17 10:00 Cozaar - PO DAILY RICO Metoprolol Succinate 50 mg 10/05/17 21:30 10/08/17 09:47 Toprol Xl - PO 50 mg DAILY RICO Administration Microbiology 10/05/17 19:15 Blood - Peripheral Venous Blood Culture - Preliminary NO GROWTH OBTAINED AFTER 72 HOURS, INCUBATION TO CONTINUE FOR 2 DAYS. 10/05/17 19:15 Blood - Peripheral Venous Blood Culture - Preliminary NO GROWTH OBTAINED AFTER 72 HOURS, INCUBATION TO CONTINUE FOR 2 DAYS. ASSESSMENT AND PLAN: 66 yof with PMHx of endometrial Ca s/p BATSHEVA/BSO in , s/p XRT, admitted with hematuria, chronic diarrhea found with possible vesicovaginal fistula, proctitis , bilateral hydroureteronephrosis. 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 IR input noted, ultrasound with no hydronephrosis, no nephrostomy tube placed. Dr. Yuen's input appreciated. discussed with digital retoucher onc Dr. Costa, discussed case and CT findings in detail, unable to reach her today, she plans to be at [facility] tomorrow, will follow up. Patient currently stable with no new concerns, monitor closely for now. Plan for inhouse treatment vs tertiary care transfer accordingly. ID input appreciated. Ceftriaxone/flagyl ay 6. ?proctisis, unclear if from XRT or surrounding inflammatory process. s/p 1unit pRBC 10/08 in the setting of ongoing hematuria+/- GI bleed. Plan for colonoscopy tomorrow, will follow up. Chronic diarrhea, no recent change. GI input appreciated, stool C difficile neg. Continue home anti-hypertensives. DVTPPX hold heparin, place on SCDs Plan discussed in detail with patient, all questions answered.
[2017-10-09 08:25] LABS: ANION GAP 8 (8-16); BLOOD UREA NITROGEN 15 mg/dL (7-18); CHLORIDE 108 mmol/L (98-107); CO2 25 mmol/L (21-32); GLUCOSE,RANDOM 97 mg/dL (74-106); POTASSIUM 4.2 mmol/L (3.5-5.1); SODIUM 141 mmol/L (136-145)
[2017-10-09 08:27] LABS: CALCIUM 8.8 mg/dL (8.5-10.1); CREATININE 1.2 mg/dL (0.55-1.02)
[2017-10-09] MEDS ORDERED: PT OWN MED DRAWER 7, Y5N ONE (08:43)
[2017-10-09] MEDS: LOSARTAN POTASSIUM 50 MG TABLET (FP) PO SCH (09:38)
[2017-10-09] MEDS: METOPROLOL SUCCINATE 50 MG TAB.SR.24H (FP) PO SCH (09:38)
[2017-10-09] MEDS: HYDROCHLOROTHIAZIDE 25 MG TABLET (FP) PO SCH (09:39)
[2017-10-09] MEDS: SODIUM CHLORIDE 1,000 ML IV SCH ×2 (09:51→22:33)
[2017-10-09] MEDS ORDERED: BISACODYL 5 MG TABLET.DR (FP) PO ONE (10:32)
[2017-10-09] MEDS ORDERED: PEG 3350/NA SULF BICARB CL/KCL 4000 ML SOLN.RECON PO ONE (10:32)
--- NOTE | 2017-10-09 10:34 | PN ---
Progress Note, Physician History of Present Illness: Comfortable. No events, Still reports diarrhea with blood. - Current Medication List Current Medications: Active Medications Acetaminophen (Tylenol -) 500 mg PO Q4H PRN PRN Reason: PAIN Last Admin: 10/07/17 08:16 Dose: 500 mg Hydrochlorothiazide (Hctz -) 25 mg PO DAILY [facility] Last Admin: 10/09/17 09:39 Dose: 25 mg Sodium Chloride (Normal Saline -) 1,000 mls @ 83 mls/hr IV ASDIR [facility] Last Admin: 10/09/17 09:51 Dose: 83 mls/hr Metronidazole (Flagyl 500mg Premixed Ivpb -) 500 mg in 100 mls @ 100 mls/hr IVPB Q8H-IV [facility] Last Admin: 10/09/17 09:38 Dose: 100 mls/hr CEFTRIAXONE 1 G/50 ML PREMIX (Ceftriaxone 1 Gm-D5w Bag) 50 mls @ 100 mls/hr IVPB DAILY [facility] Last Admin: 10/08/17 09:46 Dose: 100 mls/hr Losartan Potassium (Cozaar -) 100 mg PO DAILY [facility] Last Admin: 10/09/17 09:38 Dose: 100 mg Metoprolol Succinate (Toprol Xl -) 50 mg PO DAILY [facility] Last Admin: 10/09/17 09:38 Dose: 50 mg - Objective Vital Signs: Vital Signs Temperature 98.1 F 10/09/17 06:00 Pulse Rate 68 10/09/17 06:00 Respiratory Rate 18 10/09/17 06:00 Blood Pressure 144/86 10/09/17 06:00 O2 Sat by Pulse Oximetry (%) 100 10/08/17 23:51 Constitutional: Yes: No Distress, Calm Eyes: Yes: Conjunctiva Clear HENT: Yes: Atraumatic Neck: Yes: Supple Respiratory: Yes: Regular Gastrointestinal: Yes: Soft, Rectal Bleeding. No: Distention, Tenderness, Rebound, Vomiting Neurological: Yes: Alert, Oriented Labs: CBC, BMP 10/09/17 07:15 10/09/17 07:15 INR, PTT INR 1.43 (0.82-1.09) H 10/07/17 07:30 Abnormal Lab Results 10/08/17 10/08/17 10/09/17 12:53 13:02 07:15 Plt Count 510 H Lymphocytes % 40.6 H Chloride Creatinine TIBC 193 L Crossmatch See Detail 10/09/17 07:15 Plt Count Lymphocytes % Chloride 108 H Creatinine 1.2 H TIBC Crossmatch Problem List - Problems (1) Hematochezia Code(s): K92.1 - MELENA (2) Abnormal CT of the abdomen Code(s): R93.5 - ABN FINDINGS ON DX IMAGING OF ABD REGIONS, INC RETROPERITON (3) Abnormal CT scan Code(s): R93.8 - ABNORMAL FINDINGS ON DIAGNOSTIC IMAGING OF BODY STRUCTURES (4) Hydronephrosis Code(s): N13.30 - UNSPECIFIED HYDRONEPHROSIS Qualifiers: Hydronephrosis type: unspecified Qualified Code(s): N13.30 - Unspecified hydronephrosis (5) Rectal bleeding Code(s): K62.5 - HEMORRHAGE OF ANUS AND RECTUM (6) UTI (urinary tract infection) Code(s): N39.0 - URINARY TRACT INFECTION, SITE NOT SPECIFIED Qualifiers: Urinary tract infection type: site unspecified Hematuria presence: with hematuria Qualified Code(s): N39.0 - Urinary tract infection, site not specified; R31.9 - Hematuria, unspecified; R31.9 - Hematuria, unspecified Assessment/Plan A hematochezia with rectal thickening in a patient with significant weight loss , history of uterine cancer and XRT to the pelvis who never had colonoscopy. Hemodynamically stable with normocytic, normochromic anemia, which is likely multifactorial in nature. Mild hypocoagulable state. /WAREHOUSE DISTRIBUTION MANAGER evaluation Plan colonoscopy to assess for colorectal cancer, radiation proctopathy/ colopathy, other intraluminal lesion Colonoscopy was discussed with the patient last week.
[2017-10-09] MEDS: CEFTRIAXONE 1 G/50 ML PREMIX 50 ML IVPB SCH (11:51)
--- NOTE | 2017-10-09 12:15 | PN ---
Progress Note (short form) - Note Progress Note: resting comfortably still passing some blood seen by gi plan for colonoscopy Vital Signs Period Temp Pulse Resp BP Sys/Glasgow Pulse Ox Last 24 Hr 98.1 F-99.0 F 64-75 18-18 118-144/58-86 100-100 cor-rrr lungs clear abd soft,nt no edema CBC, BMP 10/09/17 07:15 10/09/17 07:15 Microbiology 10/08/17 18:25 Stool Clostridium difficile Antigen (MAYLIN) - Final 10/08/17 18:25 Stool Clostridium difficile Toxin Assay - Final 10/07/17 15:00 Urine - Urine Clean Catch Urine Culture - Final NO GROWTH OBTAINED 10/05/17 19:15 Blood - Peripheral Venous Blood Culture - Preliminary NO GROWTH OBTAINED AFTER 72 HOURS, INCUBATION TO CONTINUE FOR 2 DAYS. 10/05/17 19:15 Blood - Peripheral Venous Blood Culture - Preliminary NO GROWTH OBTAINED AFTER 72 HOURS, INCUBATION TO CONTINUE FOR 2 DAYS. a/p ?vesicovaginal fistula ?proctitis gi bleed for colonoscopy rocephin/flagyl day #5 will d/w hospitalist service Problem List - Problems (1) UTI (urinary tract infection) Code(s): N39.0 - URINARY TRACT INFECTION, SITE NOT SPECIFIED Qualifiers: Urinary tract infection type: site unspecified Hematuria presence: with hematuria Qualified Code(s): N39.0 - Urinary tract infection, site not specified; R31.9 - Hematuria, unspecified; R31.9 - Hematuria, unspecified (2) Hydronephrosis Code(s): N13.30 - UNSPECIFIED HYDRONEPHROSIS Qualifiers: Hydronephrosis type: unspecified Qualified Code(s): N13.30 - Unspecified hydronephrosis (3) Rectal bleeding Code(s): K62.5 - HEMORRHAGE OF ANUS AND RECTUM
[2017-10-09] MEDS ORDERED: ONDANSETRON 4 MG/2 ML VIAL IVPUSH ONE ×2 (18:45→22:15)
[2017-10-10] MEDS: METRONIDAZOLE 500 MG PREMIXED 500 MG/100 ML MG IVPB SCH ×2 (02:01→09:04)
--- NOTE | 2017-10-10 04:23 | PN ---
Physical Exam: SUBJECTIVE: Patient seen and examined by me this AM - Pt still w/ trace hematuria. Denies any MELGAR/dizziness, SOB, cough, GONZALEZ, Abdominal pain, dysuria, constipation, vaginal bleeding or new neuro symptoms. No other major events overnight. - Pt poorly tolerated bowel prep, vomiting. Advised to slow rate, zofran given. Refused to finish bowel prep however. Received Colonoscopy in AM w/ Dr. Barrientos w / adequate visualization (report noted below). OBJECTIVE: Vital Signs Intake & Output 10/07/17 10/08/17 10/09/17 10/10/17 23:59 23:59 23:59 23:59 Intake Total 2980 3411 3130 Balance 2980 3411 3130 Period Temp Pulse Resp BP Sys/Glasgow Pulse Ox Last 24 Hr 98.1 F-98.2 F 62-76 18-18 140-152/68-89 100-100 GENERAL: The patient is awake, alert, and fully oriented, in no acute distress. HEAD: Normal with no signs of trauma. EYES: PERRL, extraocular movements intact, sclera anicteric, conjunctiva clear. No ptosis. ENT: Ears normal, nares patent, oropharynx clear without exudates, moist mucous membranes. NECK: +JVD 3cm below mandible. Trachea midline, full range of motion, supple. LUNGS: Breath sounds equal, clear to auscultation bilaterally, no wheezes, no crackles, no accessory muscle use. HEART: Regular rate and rhythm, S1, S2 without murmur, rub or gallop. ABDOMEN: Soft, nontender, nondistended, normoactive bowel sounds, no guarding, no rebound, no hepatosplenomegaly, no masses. No CVA tenderness. EXTREMITIES: 2+ pulses, warm, well-perfused, no edema. NEUROLOGICAL: Cranial nerves II through XII grossly intact. Normal speech, gait not observed. PSYCH: Normal mood, normal affect. SKIN: Warm, dry, normal turgor, no rashes or lesions noted Laboratory Results - last 24 hr CBC, BMP 10/10/17 06:45 10/10/17 06:45 10/09/17 07:15 10/09/17 07:15 10/08/17 10/09/17 10/09/17 13:02 07:15 07:15 WBC 8.8 RBC 4.09 D Hgb 11.1 D Hct 34.4 D MCV 84.1 MCH 27.1 MCHC 32.3 RDW 15.3 Plt Count 510 H MPV 7.9 Neutrophils % 48.3 Lymphocytes % 40.6 H Monocytes % 6.1 Eosinophils % 4.3 Basophils % 0.7 Sodium 141 Potassium 4.2 Chloride 108 H Carbon Dioxide 25 Anion Gap 8 BUN 15 Creatinine 1.2 H Random Glucose 97 Calcium 8.8 Iron 42 TIBC 193 L Iron Saturation 22 Active Medications Generic Name Dose Route Start Last Admin Trade Name Freq PRN Reason Stop Dose Admin Acetaminophen 500 mg 10/05/17 22:36 10/07/17 08:16 Tylenol - PO 500 mg Q4H PRN Administration PAIN Hydrochlorothiazide 25 mg 10/05/17 21:45 10/09/17 09:39 Hctz - PO 25 mg DAILY RICO Administration Sodium Chloride 1,000 mls @ 83 mls/hr 10/05/17 21:45 10/09/17 22:33 Normal Saline - IV 83 mls/hr ASDIR RICO Administration Metronidazole 500 mg in 100 mls @ 100 mls/hr 10/06/17 10:30 10/10/17 02:01 Flagyl 500mg Premixed Ivpb - IVPB 100 mls/hr Q8H-IV RICO Administration CEFTRIAXONE 1 G/50 ML PREMIX 50 mls @ 100 mls/hr 10/06/17 10:45 10/09/17 11: 51 Ceftriaxone 1 Gm-D5w Bag IVPB 100 mls/hr DAILY RICO Administration Losartan Potassium 100 mg 10/09/17 10:00 10/09/17 09:38 Cozaar - PO 100 mg DAILY RICO Administration Metoprolol Succinate 50 mg 10/05/17 21:30 10/09/17 09:38 Toprol Xl - PO 50 mg DAILY RICO Administration Microbiology 10/05/17 19:15 Blood - Peripheral Venous Blood Culture - Preliminary NO GROWTH OBTAINED AFTER 96 HOURS, INCUBATION TO CONTINUE FOR 1 DAYS. 10/05/17 19:15 Blood - Peripheral Venous Blood Culture - Preliminary NO GROWTH OBTAINED AFTER 96 HOURS, INCUBATION TO CONTINUE FOR 1 DAYS. 10/08/17 18:25 Stool Clostridium difficile Antigen (MAYLIN) - Final 10/08/17 18:25 Stool Clostridium difficile Toxin Assay - Final 10/07/17 15:00 Urine - Urine Clean Catch Urine Culture - Final NO GROWTH OBTAINED -ABDOMINAL/PELVIC CT 10/05 IMPRESSION: 1. Status post hysterectomy. Thickening of the vaginal fornix and circumferential urinary bladder wall thickening, which are inseparable from each other may be secondary to post radiation changes, however, active infectious/inflammatory processes or neoplasia cannot be entirely excluded. 2. Presence of gas locules within the urinary bladder and fluid within the vaginal fornix which appears to communicate with the right posterolateral wall of the urinary bladder - is extremely suspicious for vesicovaginal fistula. Emphysematous cystitis cannot be excluded. 3. Rectal wall thickening may be secondary to a nonspecific infectious or inflammatory proctitis. Neoplasm is not excluded. Circumferentially prominent sigmoid colon wall could be secondary to underdistention, however, colitis is not excluded. 4. Moderate right hydroureteronephrosis and mild left hydroureteronephrosis is likely secondary to scarring and/or extrinsic compression in the pelvis. This hydroureter is mildly increased since 03/14/13 CT. TVUS 10/05 - No discrete masses appreciated. Uterus, ovaries not seen. Trace fluid in the cul-de-sac EK/18 - NSR rate 86, NAD, QTC 406, no t-wave or ST changes ASSESSMENT/PLAN: 66 y/o F with PMH HTN, vaginal cancer and hysterectomy (27 yrs ago, radiation tx ), who presents to the ED with hematuria, diarrhea, and worsening abdominal pain over the last two months. #Suspected vesicovaginal fistula - Seen by Dr. blankenship over weekend; recs Uro/ mold machine operator, mold machine operator onc consult - Gun Fertilizer/onc consulted - Dr. Costa to see pt today still; will f/u recs - ID consulted - d/c abx as no WBC count, no source - Serial H/H; transfuse at <7 - Monitor for continued hematuria - Avoid AC until no active bleeding - Tylenol for pain control - Consider possible retrograde cystogram per IR recs #Rectal bleeding/proctitis? - Colonoscopy w/ non bleeding radiation proctopathy nand mild diverticulosis of R colon noted; No evidence of active bleed, fistula , mass or infection - restart regular diet - avoids NSAIDs - Serial H/H - Transfuse at <7 Hgb - FOBT + on admission - Monitor for further bleeding #BL hydronephrosis - No perc nephrostomy placement per IR on 10/06, as no evidence of hydronephrosis on U/S and high risk of bleeding; recommed retrograde cystogram - Urology consulted - recommend bx of suspicious perivesicular mass and BL nephrostomies - Urology following #BETHANY - 1.2 -> 1.2; stable -Daily BMPs - IVFs #leukocytosis - resolved - Trend fever, WBC count - monitor for infectious symptoms - d/c abx per ID recs #Hx Endometrial CA - Gun Fertilizer/onc eval pending - will f/u as outpt #Diarrhea - likely noninfectious, chronic - Imodium PRN - C diff toxin negative - Trend fever, WBC count - all cultures negative #HTN c/w home HTN meds PPX SCDs No heparin given persistent bleed FEN NS 83 cc/hr Daily BMPs Regular diet If not seen by Dr. Costa today, will d/c tomorrow and f/u as outpt Plan discussed with attending, Dr. Echo Dotson, PGY1 Visit type - Emergency Visit Emergency Visit: Yes ED Registration Date: 10/05/17 Care time: The patient presented to the Emergency Department on the above date and was hospitalized for further evaluation of their emergent condition. - New Patient This patient is new to me today: No - Critical Care Critical Care patient: No
--- NOTE | 2017-10-10 05:10 | PN ---
Physical Exam: SUBJECTIVE: Patient seen and examined OBJECTIVE: Vital Signs Period Temp Pulse Resp BP Sys/Glasgow Pulse Ox Last 24 Hr 98.1 F-98.2 F 62-76 18-18 140-152/68-89 100-100 GENERAL: The patient is awake, alert, and fully oriented, in no acute distress. HEAD: Normal with no signs of trauma. EYES: PERRL, extraocular movements intact, sclera anicteric, conjunctiva clear. No ptosis. ENT: Ears normal, nares patent, oropharynx clear without exudates, moist mucous membranes. NECK: Trachea midline, full range of motion, supple. LUNGS: Breath sounds equal, clear to auscultation bilaterally, no wheezes, no crackles, no accessory muscle use. HEART: Regular rate and rhythm, S1, S2 without murmur, rub or gallop. ABDOMEN: Soft, nontender, nondistended, normoactive bowel sounds, no guarding, no rebound, no hepatosplenomegaly, no masses. EXTREMITIES: 2+ pulses, warm, well-perfused, no edema. NEUROLOGICAL: Cranial nerves II through XII grossly intact. Normal speech, gait not observed. PSYCH: Normal mood, normal affect. SKIN: Warm, dry, normal turgor, no rashes or lesions noted Laboratory Results - last 24 hr 10/08/17 10/09/17 10/09/17 13:02 07:15 07:15 WBC 8.8 RBC 4.09 D Hgb 11.1 D Hct 34.4 D MCV 84.1 MCH 27.1 MCHC 32.3 RDW 15.3 Plt Count 510 H MPV 7.9 Neutrophils % 48.3 Lymphocytes % 40.6 H Monocytes % 6.1 Eosinophils % 4.3 Basophils % 0.7 Sodium 141 Potassium 4.2 Chloride 108 H Carbon Dioxide 25 Anion Gap 8 BUN 15 Creatinine 1.2 H Random Glucose 97 Calcium 8.8 Iron 42 TIBC 193 L Iron Saturation 22 Active Medications Generic Name Dose Route Start Last Admin Trade Name Freq PRN Reason Stop Dose Admin Acetaminophen 500 mg 10/05/17 22:36 10/07/17 08:16 Tylenol - PO 500 mg Q4H PRN Administration PAIN Hydrochlorothiazide 25 mg 10/05/17 21:45 10/09/17 09:39 Hctz - PO 25 mg DAILY RICO Administration Sodium Chloride 1,000 mls @ 83 mls/hr 10/05/17 21:45 10/09/17 22:33 Normal Saline - IV 83 mls/hr ASDIR RICO Administration Metronidazole 500 mg in 100 mls @ 100 mls/hr 10/06/17 10:30 10/10/17 02:01 Flagyl 500mg Premixed Ivpb - IVPB 100 mls/hr Q8H-IV RICO Administration CEFTRIAXONE 1 G/50 ML PREMIX 50 mls @ 100 mls/hr 10/06/17 10:45 10/09/17 11: 51 Ceftriaxone 1 Gm-D5w Bag IVPB 100 mls/hr DAILY RICO Administration Losartan Potassium 100 mg 10/09/17 10:00 10/09/17 09:38 Cozaar - PO 100 mg DAILY RICO Administration Metoprolol Succinate 50 mg 10/05/17 21:30 10/09/17 09:38 Toprol Xl - PO 50 mg DAILY RICO Administration ASSESSMENT/PLAN:
[2017-10-10 07:35] LABS: HEMATOCRIT 31.3 % (32.4-45.2); HEMOGLOBIN 10.1 GM/dL (10.7-15.3); MCHC 32.2 g/dl (32.0-36.0); MEAN CELL VOLUME 83.9 fl (80-96); MEAN PLT VOLUME 7.7 fl (7.5-11.1); PLATELET COUNT 446 K/MM3 (134-434); RBC 3.74 M/mm3 (3.60-5.2); RDW 15.2 % (11.6-15.6); WHITE BLOOD COUNT 7.3 K/mm3 (4.0-10.0)
[2017-10-10 08:09] LABS: CHLORIDE 108 mmol/L (98-107); POTASSIUM 3.7 mmol/L (3.5-5.1); SODIUM 142 mmol/L (136-145)
[2017-10-10 08:22] LABS: ANION GAP 9 (8-16); BLOOD UREA NITROGEN 10 mg/dL (7-18); CALCIUM 8.1 mg/dL (8.5-10.1); CO2 25 mmol/L (21-32); CREATININE 1.2 mg/dL (0.55-1.02); GLUCOSE,RANDOM 83 mg/dL (74-106); MAGNESIUM 1.7 mg/dL (1.8-2.4); PHOSPHOROUS 2.9 mg/dL (2.5-4.9)
[2017-10-10] MEDS: METOPROLOL SUCCINATE 50 MG TAB.SR.24H (FP) PO SCH (09:02)
[2017-10-10] MEDS: LOSARTAN POTASSIUM 50 MG TABLET (FP) PO SCH (09:03)
[2017-10-10] MEDS: HYDROCHLOROTHIAZIDE 25 MG TABLET (FP) PO SCH (09:03)
[2017-10-10] MEDS ORDERED: PROPOFOL 20 ML ONE ×2 (10:14)
[2017-10-10] MEDS ORDERED: LIDOCAINE HCL 2% (20ML MULTI-DOSE VIAL) NR ONE (10:14)
--- NOTE | 2017-10-10 10:53 | PROC ---
Endoscopy Procedure Endoscopy procedure completed. Please see scanned procedure report. Non-bleeding radiation proctopathy and mild diverticulosis of the right colon. No other significant findings. Rectal biopsies taken
[2017-10-10] MEDS: CEFTRIAXONE 1 G/50 ML PREMIX 50 ML IVPB SCH (12:13)
[2017-10-10] MEDS: SODIUM CHLORIDE 1,000 ML IV SCH (12:15)
--- NOTE | 2017-10-10 13:53 | PN ---
Progress Note (short form) - Note Progress Note: resting comfortably returned from colonoscopy--radiatiion changes Vital Signs Period Temp Pulse Resp BP Sys/Glasgow Pulse Ox Last 24 Hr 97.8 F-98.4 F 48-79 16-18 117-152/57-89 98-100 cor-rrr lungs clear abd soft,nt ext no edema CBC, BMP 10/10/17 06:45 10/10/17 06:45 Microbiology 10/05/17 19:15 Blood - Peripheral Venous Blood Culture - Preliminary NO GROWTH OBTAINED AFTER 96 HOURS, INCUBATION TO CONTINUE FOR 1 DAYS. 10/05/17 19:15 Blood - Peripheral Venous Blood Culture - Preliminary NO GROWTH OBTAINED AFTER 96 HOURS, INCUBATION TO CONTINUE FOR 1 DAYS. 10/08/17 18:25 Stool Clostridium difficile Antigen (MAYLIN) - Final 10/08/17 18:25 Stool Clostridium difficile Toxin Assay - Final 10/07/17 15:00 Urine - Urine Clean Catch Urine Culture - Final NO GROWTH OBTAINED a/p ?vesicovaginal fistula ?proctitis gi bleed d/c antibiotics awaiting gyne/onc evaluation please call back if needed Problem List - Problems (1) UTI (urinary tract infection) Code(s): N39.0 - URINARY TRACT INFECTION, SITE NOT SPECIFIED Qualifiers: Urinary tract infection type: site unspecified Hematuria presence: with hematuria Qualified Code(s): N39.0 - Urinary tract infection, site not specified; R31.9 - Hematuria, unspecified; R31.9 - Hematuria, unspecified (2) Hydronephrosis Code(s): N13.30 - UNSPECIFIED HYDRONEPHROSIS Qualifiers: Hydronephrosis type: unspecified Qualified Code(s): N13.30 - Unspecified hydronephrosis (3) Rectal bleeding Code(s): K62.5 - HEMORRHAGE OF ANUS AND RECTUM
--- NOTE | 2017-10-10 18:37 | PN ---
Teaching Attending Note Name of Resident: Daniel Dotson ATTENDING PHYSICIAN STATEMENT I saw and evaluated the patient. I reviewed the resident's note and discussed the case with the resident. I agree with the resident's findings and plan as documented. SUBJECTIVE:continues to have urinary incontinence. no longer having hematuria. 1 episode of blood streaked BM. denies Cp, SOB, fever, chills, N/v/C/D, denies peeing air or feces. OBJECTIVE: Last Vital Signs Temp Pulse Resp BP Pulse Ox 97.4 F L 56 L 20 128/60 100 10/10/17 14:11 10/10/17 14:11 10/10/17 14:11 10/10/17 14:11 10/10/17 12:00 General NAD CV S1 S2 RRR +5/6 systolic murmur lungs CTA B/L no wheezing/rales/rhonchi Abdomen soft NT/ND no suprapubic distention or tenderness ASSESSMENT AND PLAN: 66 yo F with PMHx of endometrial Ca s/p BATSHEVA/BSO in , s/p XRT, admitted with hematuria, chronic diarrhea found with possible vesicovaginal fistula, proctitis, bilateral hydroureteronephrosis 1. Possible vesicovaginal fistula- c/o urinary incontinence. will start oxybutynin. fistula not seen on colonoscopy. awaiting evaluation by CLINICAL SERVICES DIRECTOR oncology. 2. 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 Cdiff negative. no procitis seen on colonoscopy. will d/c abx. rectal bx taken. will need to f/u with GI as outpatient 3. Biateral hydroureteronephrosis- seen on CT scan. went to IR yesterday for nephrostomy tube placement however not seen on fluoro and tubes not placed. 4. Acute on chronic anemia, ongoing blood loss from hematuria-s/p 1 unit PRBC this admission. Hgb stable. no more reports of bleeding 5. h/o endometrial cancer s/p ANTOINE/PARTS PROCESSOR in 6. HTN- controlled. 7. DVT ppx- SCD
[2017-10-10] MEDS: OXYBUTYNIN CHLORIDE 5 MG TABLET PO SCH (22:28)
--- NOTE | 2017-10-11 06:45 | PN ---
Physical Exam: SUBJECTIVE: Patient seen and examined by me this AM - No major overnight events. No complaints. Pt states no hematuria, diarrhea overnight. Denies any MELGAR, CP, SOB, abdominal pain, N/V, rashes, vaginal discharge, dysuria, rashes or focal neuro deficits. 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 Abx d/c'ed yesterday. OBJECTIVE: Vital Signs Intake & Output 10/08/17 10/09/17 10/10/17 10/11/17 23:59 23:59 23:59 23:59 Intake Total 3411 3130 3096 340 Balance 3411 3130 3096 340 Period Temp Pulse Resp BP Sys/Glasgow Pulse Ox Last 24 Hr 97.4 F-98.4 F 48-80 16-20 117-153/57-80 98-100 GENERAL: The patient is awake, alert, and fully oriented, in no acute distress. HEAD: Normal with no signs of trauma. EYES: PERRL, extraocular movements intact, sclera anicteric, conjunctiva clear. No ptosis. ENT: Ears normal, nares patent, oropharynx clear without exudates, moist mucous membranes. NECK: Trachea midline, full range of motion, supple. No JVD noted. LUNGS: Breath sounds equal, clear to auscultation bilaterally, no wheezes, no crackles, no accessory muscle use. HEART: Regular rate and rhythm, S1, S2 without murmur, rub or gallop. ABDOMEN: Soft, nontender, nondistended, normoactive bowel sounds, no guarding, no rebound, no hepatosplenomegaly, no masses. No CVA tenderness. EXTREMITIES: 2+ pulses, warm, well-perfused, no edema. NEUROLOGICAL: Cranial nerves II through XII grossly intact. Normal speech, gait not observed. PSYCH: Normal mood, normal affect. SKIN: Warm, dry, normal turgor, no rashes or lesions noted Laboratory Results - last 24 hr CBC, BMP 10/10/17 06:45 10/10/17 06:45 10/10/17 10/10/17 06:45 06:45 WBC 7.3 RBC 3.74 Hgb 10.1 L Hct 31.3 L MCV 83.9 MCH 27.0 MCHC 32.2 RDW 15.2 Plt Count 446 H MPV 7.7 Sodium 142 Potassium 3.7 Chloride 108 H Carbon Dioxide 25 Anion Gap 9 BUN 10 Creatinine 1.2 H Random Glucose 83 Calcium 8.1 L Phosphorus 2.9 Magnesium 1.7 L Active Medications Generic Name Dose Route Start Last Admin Trade Name Freq PRN Reason Stop Dose Admin Acetaminophen 500 mg 10/05/17 22:36 10/07/17 08:16 Tylenol - PO 500 mg Q4H PRN Administration PAIN Hydrochlorothiazide 25 mg 10/05/17 21:45 10/10/17 09:03 Hctz - PO 25 mg DAILY RICO Administration Losartan Potassium 100 mg 10/09/17 10:00 10/10/17 09:03 Cozaar - PO 100 mg DAILY RICO Administration Metoprolol Succinate 50 mg 10/05/17 21:30 10/10/17 09:02 Toprol Xl - PO 50 mg DAILY RICO Administration Oxybutynin Chloride 5 mg 10/10/17 22:00 10/10/17 22:28 Ditropan - PO 5 mg BID RICO Administration Microbiology 10/05/17 19:15 Blood - Peripheral Venous Blood Culture - Final NO GROWTH AFTER 5 DAYS INCUBATION 10/05/17 19:15 Blood - Peripheral Venous Blood Culture - Final NO GROWTH AFTER 5 DAYS INCUBATION 10/08/17 18:25 Stool Clostridium difficile Antigen (MAYLIN) - Final 10/08/17 18:25 Stool Clostridium difficile Toxin Assay - Final 10/07/17 15:00 Urine - Urine Clean Catch Urine Culture - Final NO GROWTH OBTAINED -ABDOMINAL/PELVIC CT 10/05 IMPRESSION: 1. Status post hysterectomy. Thickening of the vaginal fornix and circumferential urinary bladder wall thickening, which are inseparable from each other may be secondary to post radiation changes, however, active infectious/inflammatory processes or neoplasia cannot be entirely excluded. 2. Presence of gas locules within the urinary bladder and fluid within the vaginal fornix which appears to communicate with the right posterolateral wall of the urinary bladder - is extremely suspicious for vesicovaginal fistula. Emphysematous cystitis cannot be excluded. 3. Rectal wall thickening may be secondary to a nonspecific infectious or inflammatory proctitis. Neoplasm is not excluded. Circumferentially prominent sigmoid colon wall could be secondary to underdistention, however, colitis is not excluded. 4. Moderate right hydroureteronephrosis and mild left hydroureteronephrosis is likely secondary to scarring and/or extrinsic compression in the pelvis. This hydroureter is mildly increased since 03/14/13 CT. TVUS 10/05 - No discrete masses appreciated. Uterus, ovaries not seen. Trace fluid in the cul-de-sac EK/18 - NSR rate 86, NAD, QTC 406, no t-wave or ST changes ASSESSMENT/PLAN: 66 y/o F with PMH HTN, vaginal cancer and hysterectomy (27 yrs ago, radiation tx ), who presents to the ED with hematuria, diarrhea, and worsening abdominal pain over the last two months. #Suspected vesicovaginal fistula - Seen by Dr. 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 Costa to see pt today still; will f/u recs - ID consulted - d/c abx as no WBC count, no source - Serial H/H; transfuse at <7 - Monitor for continued hematuria - Avoid AC until no active bleeding - Tylenol for pain control - Consider possible retrograde cystogram per IR recs #Rectal bleeding/proctitis? - Colonoscopy w/ non bleeding radiation proctopathy nand mild diverticulosis of R colon noted; No evidence of active bleed, fistula , mass or infection - restart regular diet - avoids NSAIDs - Serial H/H - Transfuse at <7 Hgb - FOBT + on admission - Monitor for further bleeding #BL hydronephrosis - No perc nephrostomy placement per IR on 10/06, as no evidence of hydronephrosis on U/S and high risk of bleeding; recommed retrograde cystogram - Urology consulted - recommend bx of suspicious perivesicular mass and BL nephrostomies - Urology following #BETHANY - 1.2 -> 1.2; stable -Daily BMPs - IVFs #leukocytosis - resolved - Trend fever, WBC count - monitor for infectious symptoms - d/c abx per ID recs #Hx Endometrial CA - Cylinder Loader/onc eval pending - will f/u as outpt #Diarrhea - likely noninfectious, chronic - Imodium PRN - C diff toxin negative - Trend fever, WBC count - all cultures negative #HTN c/w home HTN meds PPX SCDs No heparin given persistent bleed FEN NS 83 cc/hr Daily BMPs Regular diet If not seen by Dr. Costa today, will d/c tomorrow and f/u as outpt Plan discussed with attending, Dr. Echo Dotson, PGY1
[2017-10-11 08:39] LABS: BASO % 1.1 % (0-2.0); EOS % 2.9 % (0-4.5); HEMATOCRIT 31.6 % (32.4-45.2); LYMPH % 31.2 % (8-40); MCH 26.8 pg (25.7-33.7); MCHC 31.7 g/dl (32.0-36.0); MEAN CELL VOLUME 84.7 fl (80-96); MEAN PLT VOLUME 7.9 fl (7.5-11.1); MONO % 6.4 % (3.8-10.2); NEUT % 58.4 % (42.8-82.8); PLATELET COUNT 405 K/MM3 (134-434); RBC 3.73 M/mm3 (3.60-5.2); RDW 15.5 % (11.6-15.6); WHITE BLOOD COUNT 7.9 K/mm3 (4.0-10.0)
[2017-10-11 09:20] LABS: CHLORIDE 108 mmol/L (98-107); POTASSIUM 3.7 mmol/L (3.5-5.1); SODIUM 144 mmol/L (136-145)
[2017-10-11] MEDS: METOPROLOL SUCCINATE 50 MG TAB.SR.24H (FP) PO SCH (09:52)
[2017-10-11] MEDS: LOSARTAN POTASSIUM 50 MG TABLET (FP) PO SCH (09:52)
[2017-10-11] MEDS: OXYBUTYNIN CHLORIDE 5 MG TABLET PO SCH (09:54)
--- NOTE | 2017-10-11 09:54 | PN ---
Progress Note, Physician History of Present Illness: Comfortable. No events. Radiation-proctopathy. No obvious inflammation - Current Medication List Current Medications: Active Medications Acetaminophen (Tylenol -) 500 mg PO Q4H PRN PRN Reason: PAIN Last Admin: 10/07/17 08:16 Dose: 500 mg Hydrochlorothiazide (Hctz -) 25 mg PO DAILY [facility] Last Admin: 10/10/17 09:03 Dose: 25 mg Losartan Potassium (Cozaar -) 100 mg PO DAILY [facility] Last Admin: 10/10/17 09:03 Dose: 100 mg Metoprolol Succinate (Toprol Xl -) 50 mg PO DAILY [facility] Last Admin: 10/10/17 09:02 Dose: 50 mg Oxybutynin Chloride (Ditropan -) 5 mg PO BID [facility] Last Admin: 10/10/17 22:28 Dose: 5 mg - Objective Vital Signs: Vital Signs Temperature 98.4 F 10/11/17 06:00 Pulse Rate 61 10/11/17 06:00 Respiratory Rate 18 10/11/17 06:00 Blood Pressure 142/77 10/11/17 06:00 O2 Sat by Pulse Oximetry (%) 99 10/10/17 21:00 Labs: CBC, BMP 10/11/17 08:10 INR, PTT INR 1.43 (0.82-1.09) H 10/07/17 07:30 Problem List - Problems (1) Hematochezia Code(s): K92.1 - MELENA (2) Abnormal CT of the abdomen Code(s): R93.5 - ABN FINDINGS ON DX IMAGING OF ABD REGIONS, INC RETROPERITON (3) Abnormal CT scan Code(s): R93.8 - ABNORMAL FINDINGS ON DIAGNOSTIC IMAGING OF BODY STRUCTURES (4) Hydronephrosis Code(s): N13.30 - UNSPECIFIED HYDRONEPHROSIS Qualifiers: Hydronephrosis type: unspecified Qualified Code(s): N13.30 - Unspecified hydronephrosis (5) Rectal bleeding Code(s): K62.5 - HEMORRHAGE OF ANUS AND RECTUM (6) UTI (urinary tract infection) Code(s): N39.0 - URINARY TRACT INFECTION, SITE NOT SPECIFIED Qualifiers: Urinary tract infection type: site unspecified Hematuria presence: with hematuria Qualified Code(s): N39.0 - Urinary tract infection, site not specified; R31.9 - Hematuria, unspecified; R31.9 - Hematuria, unspecified Assessment/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
[2017-10-11] MEDS: HYDROCHLOROTHIAZIDE 25 MG TABLET (FP) PO SCH (09:55)
[2017-10-11 09:59] VITALS: PULSE 60
--- NOTE | 2017-10-11 10:05 | PATH ---
Surgical Pathology Report Patient Name: DEEPTI HODGES [facility]. Rec. #: [id number] /Age/Gender: 1950 (Age: 66) / F Account: [id number] Location: [address] [place] [address]/[facility] Taken: 10/10/2017 Received: 10/10/2017 Reported: 10/11/2017 Physicians: Jass Hernandez M.D. Specimen(s) Received BX RECTO-SIGMOID Clinical History The No Preoperative diagnosis: Anemia, weight loss, rectal bleeding, vaginal bleeding Postoperative diagnosis: Diverticulosis, radiation proctopathy Final Diagnosis RECTOSIGMOID COLON, BIOPSY: COLONIC MUCOSA WITH SUPERFICIAL HYPERPLASTIC FEATURES. Electronically Signed Maria D Vcitoria M.D. Gross Description Received in formalin, labeled "biopsy rectosigmoid colon" is a pascal, irregular portion of soft tissue measuring 0.6 cm. in greatest dimension. The specimen is submitted in toto in one cassette. /10/10/2017 [facility]10/10/2017
--- NOTE | 2017-10-11 14:25 | DS ---
Physical Exam: SUBJECTIVE: Patient seen and examined by me this AM - No major overnight events. No complaints. Pt states no hematuria, diarrhea overnight. Denies any MELGAR, CP, SOB, abdominal pain, N/V, rashes, vaginal discharge, dysuria, rashes or focal neuro deficits. 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 Abx d/c'ed yesterday. OBJECTIVE: Vital Signs Intake & Output 10/08/17 10/09/17 10/10/17 10/11/17 23:59 23:59 23:59 23:59 Intake Total 3411 3130 3096 670 Balance 3411 3130 3096 670 Period Temp Pulse Resp BP Sys/Glasgow Pulse Ox Last 24 Hr 97.4 F-98.4 F 56-80 18-20 124-153/59-77 97-99 PHYSICAL EXAM GENERAL: The patient is awake, alert, and fully oriented, in no acute distress. HEAD: Normal with no signs of trauma. EYES: PERRL, extraocular movements intact, sclera anicteric, conjunctiva clear. No ptosis. ENT: Ears normal, nares patent, oropharynx clear without exudates, moist mucous membranes. NECK: Trachea midline, full range of motion, supple. No JVD noted. LUNGS: Breath sounds equal, clear to auscultation bilaterally, no wheezes, no crackles, no accessory muscle use. HEART: Regular rate and rhythm, S1, S2 without murmur, rub or gallop. ABDOMEN: Soft, nontender, nondistended, normoactive bowel sounds, no guarding, no rebound, no hepatosplenomegaly, no masses. No CVA tenderness. EXTREMITIES: 2+ pulses, warm, well-perfused, no edema. NEUROLOGICAL: Cranial nerves II through XII grossly intact. Normal speech, gait not observed. PSYCH: Normal mood, normal affect. SKIN: Warm, dry, normal turgor, no rashes or lesions noted LABS Laboratory Results - last 24 hr CBC, BMP 10/11/17 08:10 10/11/17 08:10 Laboratory Results - last 24 hr 10/11/17 10/11/17 08:10 08:10 WBC 7.9 RBC 3.73 Hgb 10.0 L Hct 31.6 L MCV 84.7 MCH 26.8 MCHC 31.7 L RDW 15.5 Plt Count 405 MPV 7.9 Neutrophils % 58.4 D Lymphocytes % 31.2 D Monocytes % 6.4 Eosinophils % 2.9 Basophils % 1.1 Sodium 144 Potassium 3.7 Chloride 108 H Microbiology 10/05/17 19:15 Blood - Peripheral Venous Blood Culture - Final NO GROWTH AFTER 5 DAYS INCUBATION 10/05/17 19:15 Blood - Peripheral Venous Blood Culture - Final NO GROWTH AFTER 5 DAYS INCUBATION 10/08/17 18:25 Stool Clostridium difficile Antigen (MAYLIN) - Final 10/08/17 18:25 Stool Clostridium difficile Toxin Assay - Final 10/07/17 15:00 Urine - Urine Clean Catch Urine Culture - Final NO GROWTH OBTAINED Imaging: -ABDOMINAL/PELVIC CT 10/05 IMPRESSION: 1. Status post hysterectomy. Thickening of the vaginal fornix and circumferential urinary bladder wall thickening, which are inseparable from each other may be secondary to post radiation changes, however, active infectious/inflammatory processes or neoplasia cannot be entirely excluded. 2. Presence of gas locules within the urinary bladder and fluid within the vaginal fornix which appears to communicate with the right posterolateral wall of the urinary bladder - is extremely suspicious for vesicovaginal fistula. Emphysematous cystitis cannot be excluded. 3. Rectal wall thickening may be secondary to a nonspecific infectious or inflammatory proctitis. Neoplasm is not excluded. Circumferentially prominent sigmoid colon wall could be secondary to underdistention, however, colitis is not excluded. 4. Moderate right hydroureteronephrosis and mild left hydroureteronephrosis is likely secondary to scarring and/or extrinsic compression in the pelvis. This hydroureter is mildly increased since 03/14/13 CT. TVUS 10/05 - No discrete masses appreciated. Uterus, ovaries not seen. Trace fluid in the cul-de-sac EK/18 - NSR rate 86, NAD, QTC 406, no t-wave or ST changes Procedures/reports: Colonoscopy 10/10/17 - report: Non-bleeding radiation proctopathy and mild diverticulosis of the right colon. No other significant findings. Rectal biopsies taken Perc Nephrostomy 10/06/17 - report: Decompressed renal collecting systems as compared to CT scan performed on October 05, 2017. Nonsuccessful attempts at placing left nephrostomy tube. Dispo: Patient tolerated the procedure well with no immediate complications. Following detailed discussion with the patient and her next of kin-Daughter, I elected to withhold on further attempts at placing the nephrostomy tube until further workup is performed confirming the vesicovaginal fistula. I discussed in detail with the patient's family and the patient herself that the findings are highly suspicious for vesicovaginal fistula and that I elected to proceed with nephrostomy tube placement given the findings of CT scan showing dilated renal calyces and that urinary diversion is indicated in that case in agreement with the urologist Dr. Hatch's input. However given the lack of any hydronephrosis and complete decompression of the renal calyces now and the high risk of bleeding and vascular injury in this situation and after detailed discussion it was elected to postpone nephrostomy tube placement until further evaluation by certified master safe technician and confirmation of recurrence of cancer as well as performing confirmatory tests demonstrating vesicovaginal fistula. Retrograde cystogram is suggested for further evaluation. The patient and her family are aware that in the event of confirmation of vesicovaginal fistula then bilateral nephrostomy will be attempted despite the risks associated. HOSPITAL COURSE: 66 y/o F with PMH HTN, vaginal cancer and subsequent hysterectomy (dx 27 yrs ago , received radiation in the past- currently not on chemotx; procedures performed in [place]), who initially presented to the ED at [facility] with hematuria, diarrhea, and worsening abdominal pain for the last two months. As per pt's daughter, pt has had gradually worsening hematuria which started two months ago. It has been increasing in frequency, as it was once occurring every few days, but then more recently, daily. Pt has not had any associated lightheadedness or syncopal episodes. Pt has also had diarrhea - loose BMs without blood over this time, as well as groin pain which radiates to her back b /l. Pt also endorses an unintentional 32 pound weight loss over the last 6 months. Not a/w night sweats, loss of appetite, fever, chills, SOB, or changes in urinary function. ER course was notable for: (1) leukocytosis 13.5, afebrile (2) Cr 1.4 (3) abdominal/pelvic CT: vesicovaginal fistula, rectal wall thickening, possible proctitis, cystitis cannot be excluded, moderate R and mild L hydroureteronephrosis - likely 2/2 scarring and/or extrinsic compression in pelvis, hepatic steatosis Date of Admission:10/05/17 ID, gynecology, urology and GI were consulted on case and patient was started on IV rocephin 2mg for presumptive UTI and/or protitis. Per urology, pt with hydroureter secondary to suspicious mass in pelvis as well as possible vesico- vaginal fistula, recommended BL diverting nephrostomies, bx of mass and track rider/onc consult. ID elected to expand abx coverage to rocephin/flagyl on 10/06 for further coverage. Pt taken for nephrostomy placement by IR on 10/06. However placement unsuccessful given decompressed renal pelvises and high risk of bleeding, so IR elected to forego placement, recommended retrograde cystogram. Pt seen by Door Assembler team on 10/08 (Dr. Loyola), recommended evaluation by track rider-onc, consult placed to Dr. Costa of Door Assembler-onc team. Pt remained with persistent hematuria throughout admission, in addition to intermittent diarrhea with no evidence of hematochezia or melena. No complaints of pelvis pain, dysuria, incontinence, vaginal discharge, vaginal bleeding or rectal pain. Remained hemodynamically stable, with no fever and correction of WBC to 10.5 on 10/06. Pt received colonoscopy on 10/[address] Barrientos, notable for mild nonbleeding radiation proctopathy and R colonic diverticulosis. Given complexity of case, decision to transfer patient to [facility] for further evaluation and treatment was made on 10/[address] Dodge (primary team) and Dr. Ott (Urology). [facility] transfer center contacted. Patient accepted by inpatient Oncology service, Dr. Juventino Briseno (Door Assembler-Onc) accepting physician. Patient informed of plan and transfer process initiated. Date of Discharge: 10/11/17 Consults: Urology - Seen by Dr. Ott plan on discharge- PCNs not done due to lack of significant renal pelvis dilation. 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 Awaiting PROGRAM ANALYST ONC input. Consider transfer to tertiary care center for definitive management Gynecology - Seen by Dr. Loyola plan on discharge: Plan : Uro/ Door Assembler consult recommended PROGRAM ANALYST / Onc consult recommended Gastroenterology - Seen by Dr. Barrientos Plan on discharge: Follow-up colonoscopy bx results as outpt Discharge: Pt is medically stable, awaiting transfer to [facility] for further evaluation of vesico-vaginal fistula and suspicious jan-vesicular mass. Accepting Physician: Dr. Juventino Briseno at [facility]. Minutes to complete discharge: 35 Discharge Summary Reason For Visit: URINARY TRACT INFECTION/HYDRONEPHROSIS/RECT HEMORR Current Active Problems Abnormal CT of the abdomen (Acute) Abnormal CT scan (Acute) H/O malignant neoplasm of endometrium (Acute) Hematochezia (Acute) Hydronephrosis (Acute) Rectal bleeding (Acute) UTI (urinary tract infection) (Acute) Condition: Stable - Instructions Diet, Activity, Other Instructions: During your stay at [facility], you were evaluated for chronic diarrhea, as well as blood in your urine and stool. Based on the radiographic imaging you received with us, there is a possible connection between your vagina and bladder, as well as a suspicious mass in your pelvis, which may be contributing to some or all of your symptoms. You will require further evaluation as an outpatient with a gynecologic specialist for further management. Medications: Please continue to take all home medications as previously prescribed The following medications were added to your home regimen during your stay. Please take them as described below: Oxybutynin 5mg (ditropan). Take one pill by mouth, twice a day. Please stop taking the following medications, as they are no longer indicated for your care. Nitrofurantoin (Macrobid) Loperamide (imodium) Follow-ups: Please follow up with your primary care provider within one week for further modification of your medication and management of your care. During your stay with us, you were seen by Dr. Barrientos, our turret lathe set up operator, who performed your colonoscopy (rectal biopsies have been taken; report may take a few days). Please follow-up with him in 1-2 weeks in clinic to further review your results. His contact information has been provided in this packet. Please call to schedule an appointment. Please follow up with our Gynecologic-Oncologist, Dr. Costa, as an outpatient at the soonest available time for further evaluation of your imaging results and to discuss the possibility of a corrective procedure for the blood in your urine. Their contact information has been provided in this packet. Please call to schedule an appointment. Please return to the hospital if you experience any of the following symptoms: - Blood in your stool - Persistent blood in your urine - Abnormal vaginal discharge - Significant worsening of your diarrhea - Any new or concerning symptoms Disposition: TRANSFER ACUTE CARE/OTHER HOSP - Home Medications Comprehensive Discharge Medication List: Ambulatory Orders Losartan/Hydrochlorothiazide [Losartan-Hctz 100-25 mg Tab] 1 each PO DAILY 10/05 Metoprolol Succinate 50 mg PO DAILY 10/05/17 Oxybutynin Chloride [Ditropan -] 5 mg PO BID #60 tablet 10/11/17 Problem List - Problems (1) Hematuria Code(s): R31.9 - HEMATURIA, UNSPECIFIED (2) Abnormal CT of the abdomen Code(s): R93.5 - ABN FINDINGS ON DX IMAGING OF ABD REGIONS, INC RETROPERITON (3) H/O malignant neoplasm of endometrium Code(s): Z85.42 - PERSONAL HISTORY OF MALIGNANT NEOPLASM OF OTH PRT UTERUS (4) Hydronephrosis Code(s): N13.30 - UNSPECIFIED HYDRONEPHROSIS Qualifiers: Hydronephrosis type: unspecified Qualified Code(s): N13.30 - Unspecified hydronephrosis (5) Rectal bleeding Code(s): K62.5 - HEMORRHAGE OF ANUS AND RECTUM This patient is new to me today: No Emergency Visit: Yes ED Registration Date: 10/05/17 Care time: The patient presented to the Emergency Department on the above date and was hospitalized for further evaluation of their emergent condition. Critical Care patient: No - Discharge Referral Referred to [facility] Med P.C.: No
--- NOTE | 2017-10-11 14:39 | PN ---
Teaching Attending Note Name of Resident: Daniel Dotson ATTENDING PHYSICIAN STATEMENT I saw and evaluated the patient. I reviewed the resident's note and discussed the case with the resident. I agree with the resident's findings and plan as documented. SUBJECTIVE:having difficulty controlling urination. hematuria and BRBPR resolved. denies CP, SOB, fever, chills, N/V/C/D OBJECTIVE: Last Vital Signs Temp Pulse Resp BP Pulse Ox 98.1 F 60 18 124/59 97 10/11/17 09:57 10/11/17 09:57 10/11/17 09:57 10/11/17 09:57 10/11/17 09:00 General NAD CV S1 S2 RRR +5/6 systolic murmur lungs CTA B/L no wheezing/rales/rhonchi Abdomen soft NT/ND no suprapubic distention or tenderness ASSESSMENT AND PLAN: 66 yo F with PMHx of endometrial Ca s/p BATSHEVA/BSO in , s/p XRT, admitted with hematuria, chronic diarrhea found with possible vesicovaginal fistula, proctitis, bilateral hydroureteronephrosis 1. 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 Urology evaluated and recommend nephrostomy tubes for diversion for further workup and management of fistula and bladder mass. unable to perform here at this facility. no [facility]UD[facility] SERVICES [facility] Oncology available here for further workup. pt would benefit from transfer to tertiary care center which can better manage the patient. Accepted by Dr Juventino Acuna, STUD[facility], at [facility]. Spoke with Urology who agrees with plan and will cont to follow patient over there. 2. 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 Cdiff negative. no procitis seen on colonoscopy. now off abx. will need GI outpatient follow up 3. Acute on chronic anemia, ongoing blood loss from hematuria-s/p 1 unit PRBC this admission. Hgb stable. no more reports of bleeding 4. h/o endometrial cancer s/p ANTOINE/CAROLE in and RTx 5. HTN- controlled. 6. DVT ppx- SCD 7. pt accepted and awaiting transfer to [facility] for further managment of their acute condition
[2017-10-11 14:54] VITALS: BP 136/68; TEMP 98.8
[2017-10-11 16:40] LABS: ANION GAP 12 (8-16); BLOOD UREA NITROGEN 10 mg/dL (7-18); CALCIUM 8.3 mg/dL (8.5-10.1); CO2 24 mmol/L (21-32); CREATININE 1.1 mg/dL (0.55-1.02); GLUCOSE,RANDOM 90 mg/dL (74-106); MAGNESIUM 1.6 mg/dL (1.8-2.4); PHOSPHOROUS 3.5 mg/dL (2.5-4.9)
== END 2017-10-11 18:46 | disposition short-term general hospital (02) | DRG 951 ==
LOC: JER 11:33 → JERBED 18:25 → J5S 10-06 16:28
PROVIDERS: ADMIT Internal Medicine; ATTEND Internal Medicine
PROC: 0TH Urinary System, Insertion (ICD-10-PCS; principal; 2017-10-08)
PROC: 30233H1 Transfusion of Nonautologous Whole Blood into Peripheral Vein, Percutaneous Approach (ICD-10-PCS; 2017-10-08)
PROC: 0DDP8ZX Extraction of Rectum, Via Natural or Artificial Opening Endoscopic, Diagnostic (ICD-10-PCS; 2017-10-10)
PROC: 0DDN8ZX Extraction of Sigmoid Colon, Via Natural or Artificial Opening Endoscopic, Diagnostic (ICD-10-PCS; 2017-10-10)
DX: N82.0 Vesicovaginal fistula (principal); N39.0 Urinary tract infection, site not specified; N02.9 Recurrent and persistent hematuria with unspecified morphologic changes; N13.30 Unspecified hydronephrosis; D62 Acute posthemorrhagic anemia; N85.8 Other specified noninflammatory disorders of uterus; N93.9 Abnormal uterine and vaginal bleeding, unspecified; E78.5 Hyperlipidemia, unspecified; I10 Essential (primary) hypertension; R63.4 Abnormal weight loss; Z68.23 Body mass index [BMI] 23.0-23.9, adult; Z87.891 Personal history of nicotine dependence; Z90.710 Acquired absence of both cervix and uterus; Z85.42 Personal history of malignant neoplasm of other parts of uterus; K62.5 Hemorrhage of anus and rectum; N99.89 Other postprocedural complications and disorders of genitourinary system; W88.1XXS Exposure to radioactive isotopes, sequela; Y76.1 Therapeutic (nonsurgical) and rehabilitative obstetric and gynecological devices associated with adverse incidents; R19.7 Diarrhea, unspecified; D72.829 Elevated white blood cell count, unspecified; K57.30 Diverticulosis of large intestine without perforation or abscess without bleeding
CPT/HCPCS: 36415; 36430; 36511; 50432; 74176-TC; 76830-TC; 76942-TC; 80048; 80053; 81003; 81015; 82272; 82728; 83540; 83550; 83735; 84100; 85025; 85027; 85610; 85730; 86850; 86900; 86901; 86922; 87040; 87086; 87324; 87449; 93005; 93010; 99285-25; P9038; P9058

== ENCOUNTER 2018-06-13 10:55 | Inpatient (IN) | payer OTHER ==
[2018-06-13 11:39] VITALS: BMI 27.3
[2018-06-13] MEDS ORDERED: PIPERACILLIN/TAZOB 3.375 GM 3.375 GM in DEXTROSE 5%-WATER - 50 ML IVPB ONE (12:05)
--- NOTE | 2018-06-13 12:15 | PDOC ---
History of Present Illness <JoseLeyla - Last Filed: 06/13/18 13:10> - General History Source: Patient Exam Limitations: No Limitations - History of Present Illness Travel History: No Initial Comments: 06/13/18 12:08 67 yr female sent by for admission to Dr.james Garcia for complicated UTI. PT c/o low back pain and urinary frequency denies fever or chills neg abd pain neg nvd. <Chai Sanderselle - Last Filed: 06/13/18 15:11> - General Chief Complaint: Urinary Problem Stated Complaint: PCP SENT FOR ADMIN Time Seen by Provider: 06/13/18 11:57 Past History <JoseLeyla go - Last Filed: 06/13/18 13:10> - Past Medical History COPD: No DVT: No HTN: Yes - Suicide/Smoking/Psychosocial Hx Smoking Status: No Smoking History: Never smoked Have you smoked in the past 12 months: No Number of Cigarettes Smoked Daily: 0 If you are a former smoker, when did you quit?: 2009 Hx Alcohol Use: No Drug/Substance Use Hx: No Substance Use Type: None Hx Substance Use Treatment: No <TommyChrystal - Last Filed: 06/13/18 15:11> - Past Medical History Allergies/Adverse Reactions: Allergies Allergy/AdvReac Type Severity Reaction Status Date / Time No Known Allergies Allergy Verified 06/13/18 11:36 Home Medications: Ambulatory Orders Losartan/Hydrochlorothiazide [Losartan-Hctz 100-25 mg Tab] 1 each PO DAILY 10/05 Metoprolol Succinate 50 mg PO DAILY 10/05/17 Abd/GI Specific PMHX - Complaint Specific PMHX Colitis: No Diverticulitis: No Gall Bladder Disease: No GERD: No Hepatitis: No Irritable Bowel Synd (IBS): No Pancreatitis: No GI Ulcer Disease: No <TommyChrystal - Last Filed: 06/13/18 15:11> Review of Systems - Review of Systems Able to Perform ROS?: Yes Is the patient limited Mexican proficient: Yes Constitutional: No: Symptoms Reported HEENTM: No: Symptoms Reported Respiratory: No: Symptoms reported Cardiac (ROS): No: Symptoms Reported ABD/GI: No: Symptoms Reported : Yes: Symptoms Reported, Frequency Musculoskeletal: No: Symptoms Reported Integumentary: No: Symptoms Reported Neurological: No: Symptoms reported <Chrystal Sanders - Last Filed: 06/13/18 15:11> *Physical Exam - Vital Signs Last Vital Signs Temp Pulse Resp BP Pulse Ox 99.2 F 78 18 182/78 H 99 06/13/18 11:36 06/13/18 11:36 06/13/18 11:36 06/13/18 11:36 06/13/18 11:36 <Leyla Garcia - Last Filed: 06/13/18 13:10> - Vital Signs Last Vital Signs Temp Pulse Resp BP Pulse Ox 99.2 F 78 18 182/78 H 99 06/13/18 11:36 06/13/18 11:36 06/13/18 11:36 06/13/18 11:36 06/13/18 11:36 - Physical Exam General Appearance: Yes: Nourished, Appropriately Dressed HEENT: positive: EOMI, ZAIN Neck: positive: Supple. negative: Tender Respiratory/Chest: positive: Lungs Clear, Normal Breath Sounds. negative: Chest Tender Cardiovascular: positive: Regular Rhythm, Regular Rate Gastrointestinal/Abdominal: positive: Normal Bowel Sounds, Soft. negative: Tender Lymphatic: negative: Adenopathy Musculoskeletal: positive: Normal Inspection Extremity: positive: Normal Capillary Refill, Normal Inspection, Normal Range of Motion Integumentary: positive: Normal Color, Dry, Warm Neurologic: positive: Fully Oriented, Alert, Normal Mood/Affect, Normal Response , Motor Strength 5/5 <Chrystal Sanders - Last Filed: 06/13/18 15:11> ED Treatment Course - LABORATORY CBC & Chemistry Diagram: 06/13/18 12:25 06/13/18 12:25 - Additional Consults Time Called: 12:29 (Awaiting callback from Dr. Gloria) Reason/Comments: Called Dr. Gloria's cell @ 1:11, left message. <Leyla Garcia - Last Filed: 06/13/18 13:10> - LABORATORY CBC & Chemistry Diagram: 06/13/18 12:25 06/13/18 12:25 - RADIOLOGY Radiology Studies Ordered: Category Date Time Status CHEST PA & LAT [RAD] Stat Radiology 06/13/18 12:04 Ordered - Consult/PCP Time Called: 12:00 Case discussed with consulting physician: Bobde,Rajanish M Consult Reason/Comments: sent for admit complicated UTI will give Zosyn 3.375 now admit to - Additional Consults Reason/Comments: spoke to and will admit pt to her. <Chrystal Sanders - Last Filed: 06/13/18 15:11> *DC/Admit/Observation/Transfer <Leyla Garcia - Last Filed: 06/13/18 13:10> - Discharge Dispostion Decision to Admit order: Yes <Chrystal Sanders - Last Filed: 06/13/18 15:11> Diagnosis at time of Disposition: Complicated urinary tract infection - Discharge Dispostion Condition at time of disposition: Good
[2018-06-13 12:37] LABS: BASO % 0.7 % (0-2.0); EOS % 2.1 % (0-4.5); HEMATOCRIT 33.5 % (32.4-45.2); HEMOGLOBIN 10.9 GM/dL (10.7-15.3); LYMPH % 31.3 % (8-40); MCH 29.6 pg (25.7-33.7); MCHC 32.7 g/dl (32.0-36.0); MEAN CELL VOLUME 90.7 fl (80-96); MEAN PLT VOLUME 9.3 fl (7.5-11.1); MONO % 7.8 % (3.8-10.2); NEUT % 58.1 % (42.8-82.8); PLATELET COUNT 270 K/MM3 (134-434); RBC 3.69 M/mm3 (3.60-5.2); RDW 13.6 % (11.6-15.6); WHITE BLOOD COUNT 5.8 K/mm3 (4.0-10.0)
[2018-06-13] MEDS ORDERED: PIPERACILLIN/TAZOB 3.375 GM 3.375 GM/50 ML BAG IVPB ONE (12:42)
[2018-06-13 13:13] LABS: URINE APPEARANCE CLEAR; URINE BILIRUBIN NEGATIVE (<2.0 mg/dL); URINE COLOR COLORLESS; URINE GLUCOSE (UA) NEGATIVE (NEGATIVE); URINE KETONE NEGATIVE (NEGATIVE); URINE LEUK ESTERASE TRACE (NEGATIVE); URINE NITRITE NEGATIVE (NEGATIVE); URINE PROTEIN NEGATIVE (NEGATIVE); URINE UROBILINOGEN NEGATIVE mg/dL (0.2-1.0)
[2018-06-13 13:17] LABS: ALBUMIN 3.8 g/dl (3.4-5.0); ALK PHOS 62 U/L (45-117); ANION GAP 6 MMOL/L (8-16); BILIRUBIN,TOTAL 0.6 mg/dL (0.2-1); BLOOD UREA NITROGEN 12 mg/dL (7-18); CALCIUM 8.9 mg/dL (8.5-10.1); CHLORIDE 105 mmol/L (98-107); CO2 29 mmol/L (21-32); CREATININE 1.2 mg/dL (0.55-1.3); GLUCOSE,RANDOM 89 mg/dL (74-106); POTASSIUM 3.9 mmol/L (3.5-5.1); SGOT/AST 18 U/L (15-37); SGPT/ALT 20 U/L (13-61); SODIUM 139 mmol/L (136-145); TOT PROT 7.8 g/dl (6.4-8.2)
[2018-06-13 13:30] LABS: EPI CELLS RARE /HPF (FEW)
--- NOTE | 2018-06-13 13:57 | PDOC ---
*Physical Exam - Vital Signs Last Vital Signs Temp Pulse Resp BP Pulse Ox 99.2 F 78 18 182/78 H 99 06/13/18 11:36 06/13/18 11:36 06/13/18 11:36 06/13/18 11:36 06/13/18 11:36 ED Treatment Course - LABORATORY CBC & Chemistry Diagram: 06/13/18 12:25 06/13/18 12:25 - ADDITIONAL ORDERS Additional order review: Laboratory Results 06/13/18 06/13/18 13:00 12:25 Sodium 139 Potassium 3.9 Chloride 105 Carbon Dioxide 29 Anion Gap 6 L BUN 12 Creatinine 1.2 Creat Clearance w eGFR 44.95 Random Glucose 89 Calcium 8.9 Total Bilirubin 0.6 AST 18 ALT 20 Alkaline Phosphatase 62 Total Protein 7.8 Albumin 3.8 Urine Color Colorless Urine Appearance Clear Urine pH 7.0 Ur Specific [place] 1.003 Urine Protein Negative Urine Glucose (UA) Negative Urine Ketones Negative Urine Blood 2+ H Urine Nitrite Negative Urine Bilirubin Negative Urine Urobilinogen Negative Ur Leukocyte Esterase Trace Urine WBC (Auto) 21 Urine RBC (Auto) 8 Ur Epithelial Cells Rare 06/13/18 12:25 RBC 3.69 MCV 90.7 MCHC 32.7 RDW 13.6 D MPV 9.3 D Neutrophils % 58.1 Lymphocytes % 31.3 Monocytes % 7.8 Eosinophils % 2.1 Basophils % 0.7 - Medications Given in the ED: ED Medications Discontinued Medications Generic Name Dose Route Start Last Admin Trade Name Freq PRN Reason Stop Dose Admin Piperacillin Sod/Tazobactam 50 mls @ 100 mls/hr 06/13/18 12:05 06/13/18 12:51 Sod 3.375 gm/ Dextrose IVPB 06/13/18 12:34 100 mls/hr ONCE ONE Administration Protocol - Consult/PCP Time Called: 12:00 Case discussed with consulting physician: Inder Melendez Consult Reason/Comments: sent for admit complicated UTI will give Zosyn 3.375 now admit to - Additional Consults Time Called: 12:29 (Awaiting callback from Dr. Gloria) Reason/Comments: Called Dr. Gloria's cell @ 1:11, left message. Medical Decision Making - Medical Decision Making 06/13/18 13:57 Pt seen by Midlevel Provider under my direct supervision Ancillary studies reviewed I agree with plan as outlined by Midlevel Provider *DC/Admit/Observation/Transfer Diagnosis at time of Disposition: Complicated urinary tract infection - Discharge Dispostion Condition at time of disposition: Good - Referrals - Patient Instructions - Post Discharge Activity
--- NOTE | 2018-06-13 15:08 | EKG ---
Test Reason : Blood Pressure : / mmHG Vent. Rate : 068 BPM Atrial Rate : 068 BPM P-R Int : 124 ms QRS Dur : 082 ms QT Int : 392 ms P-R-T Axes : 021 005 021 degrees QTc Int : 416 ms NORMAL SINUS RHYTHM NORMAL ECG WHEN COMPARED WITH ECG OF 05-OCT-2017 13:46, NO SIGNIFICANT CHANGE WAS FOUND Confirmed by LUCI URBANO MD ([id number]) on 06/13/2018 3:08:02 PM Referred By: Confirmed By:LUCI URBANO MD
--- NOTE | 2018-06-13 15:15 | CON.ID ---
Consult Consult Specialty:: infectious diseases Reason for Consultation:: multidrugresistant uti - History of Present Illness Chief Complaint: suprapubic pain,dysuria History of Present Illness: 67 yr female with multiple medical issues who has been having ongoing uti and who has been treated multiple times with various abx comes back again with severe dysuria ,back pain and suprapubic pain patient had done urine work up and found to have ecoli sensitive to only iv abx and patient was brought for admission and treatment - History Source History Provided By: Patient Limitations to Obtaining History: Language Barrier - Past Medical History Cardio/Vascular: Yes: HTN Renal/: Yes: UTI - Past Surgical History Past Surgical History: Yes: Hysterectomy - Alcohol/Substance Use Hx Alcohol Use: No - Smoking History Smoking history: Never smoked Have you smoked in the past 12 months: No Aproximately how many cigarettes per day: 0 If you are a former smoker, when did you quit?: 2009 - Social History Usual Living Arrangement: With Child ADL: Independent History of Recent Travel: No Home Medications - Allergies Allergies/Adverse Reactions: Allergies Allergy/AdvReac Type Severity Reaction Status Date / Time No Known Allergies Allergy Verified 06/13/18 11:36 - Home Medications Home Medications: Ambulatory Orders Losartan/Hydrochlorothiazide [Losartan-Hctz 100-25 mg Tab] 1 each PO DAILY 10/05 Metoprolol Succinate 50 mg PO DAILY 10/05/17 Review of Systems - Review of Systems Constitutional: reports: Other Eyes: reports: No Symptoms HENT: reports: No Symptoms Neck: reports: No Symptoms Cardiovascular: reports: No Symptoms Respiratory: reports: No Symptoms Gastrointestinal: reports: No Symptoms Genitourinary: reports: Pain, Other Musculoskeletal: reports: No Symptoms Integumentary: reports: No Symptoms Neurological: reports: No Symptoms Hematology/Lymphatic: reports: No Symptoms Psychiatric: reports: No Symptoms Physical Exam Vital Signs: Vital Signs Temperature 98.2 F 06/13/18 14:40 Pulse Rate 59 L 06/13/18 14:40 Respiratory Rate 18 06/13/18 14:40 Blood Pressure 157/69 06/13/18 14:40 O2 Sat by Pulse Oximetry (%) 100 06/13/18 14:40 Constitutional: Yes: No Distress, Calm Cardiovascular: Yes: Regular Rate and Rhythm Respiratory: Yes: Regular, CTA Bilaterally Gastrointestinal: Yes: Normal Bowel Sounds, Soft Renal/: Yes: Other (suprapubic tenderness) Musculoskeletal: Yes: Back Pain Extremities: Yes: WNL Neurological: Yes: Alert, Oriented Psychiatric: Yes: Alert, Oriented Labs: CBC, BMP 06/13/18 12:25 06/13/18 12:25 Imaging - Results Chest X-ray: Report Reviewed, Image Reviewed Assessment/Plan Problem List - Problems (1) UTI (urinary tract infection) Code(s): N39.0 - URINARY TRACT INFECTION, SITE NOT SPECIFIED Qualifiers: Urinary tract infection type: site unspecified Hematuria presence: with hematuria Qualified Code(s): N39.0 - Urinary tract infection, site not specified; R31.9 - Hematuria, unspecified; R31.9 - Hematuria, unspecified (2) Diarrhea Code(s): R19.7 - DIARRHEA, UNSPECIFIED (3) HTN (hypertension) Code(s): I10 - ESSENTIAL (PRIMARY) HYPERTENSION patient with multidrug resistant uti plan will start zosyn will repeat urine cx rest as per the team
[2018-06-13] MEDS ORDERED: PIPERACILLIN/TAZOBACTAM 3.375 GM VIAL IVPB ONE (17:43)
[2018-06-13] MEDS ORDERED: DEXTROSE 5%-WATER - 50 ML IVPB ONE (17:43)
[2018-06-13] MEDS: PIPERACILLIN/TAZOB 3.375 GM 3.375 GM in DEXTROSE 5%-WATER - 50 ML IVPB SCH (17:51)
[2018-06-13] MEDS ORDERED: ACETAMINOPHEN 325 MG TABLET (FP) PO PRN (22:09)
--- NOTE | 2018-06-13 22:11 | HP ---
Admitting History and Physical - Past Medical History Cardiovascular: Yes: HTN Renal/: Yes: UTI ...: No - Past Surgical History Past Surgical History: Yes: Hysterectomy - Smoking History Smoking history: Never smoked Have you smoked in the past 12 months: No Aproximately how many cigarettes per day: 0 If you are a former smoker, when did you quit?: 2009 - Alcohol/Substance Use Hx Alcohol Use: No - Social History ADL: Independent History of Recent Travel: No Home Medications - Allergies Allergies/Adverse Reactions: Allergies Allergy/AdvReac Type Severity Reaction Status Date / Time No Known Allergies Allergy Verified 06/13/18 11:36 - Home Medications Home Medications: Ambulatory Orders Losartan/Hydrochlorothiazide [Losartan-Hctz 100-25 mg Tab] 1 each PO DAILY 10/05 Metoprolol Succinate 50 mg PO DAILY 10/05/17 Physical Examination Vital Signs: Vital Signs Temperature 98.6 F 06/13/18 18:11 Pulse Rate 60 06/13/18 18:11 Respiratory Rate 18 06/13/18 18:11 Blood Pressure 146/88 06/13/18 18:11 O2 Sat by Pulse Oximetry (%) 100 06/13/18 18:18 Labs: CBC, BMP 06/13/18 12:25 06/13/18 12:25
[2018-06-14] MEDS ORDERED: DEXTROSE 5%-WATER - 50 ML IVPB ONE ×3 (01:29→16:28)
[2018-06-14] MEDS ORDERED: PIPERACILLIN/TAZOBACTAM 3.375 GM VIAL IVPB ONE ×3 (01:29→16:28)
[2018-06-14] MEDS: PIPERACILLIN/TAZOB 3.375 GM 3.375 GM in DEXTROSE 5%-WATER - 50 ML IVPB SCH ×3 (01:35→17:15)
[2018-06-14] MEDS: HYDROCHLOROTHIAZIDE 25 MG TABLET (FP) PO SCH (09:32)
[2018-06-14] MEDS: LOSARTAN POTASSIUM 50 MG TABLET (FP) PO SCH (09:32)
[2018-06-14] MEDS ORDERED: PATIENT'S OWN MEDICATION (NON-FORMULARY) (Losartan/Hydrochlorothiazide [Losartan-Hctz 100- PO SCH (10:00)
--- NOTE | 2018-06-14 14:43 | PN ---
Progress Note, Physician History of Present Illness: no complaints patient feeling better - Current Medication List Current Medications: Active Medications Acetaminophen (Tylenol -) 650 mg PO Q6H PRN PRN Reason: FEVER Hydrochlorothiazide (Hctz -) 25 mg PO DAILY [facility] Last Admin: 06/14/18 09:32 Dose: 25 mg Piperacillin Sod/Tazobactam (Sod 3.375 gm/ Dextrose) 50 mls @ 100 mls/hr IVPB Q8H-IV [facility]; Protocol Last Admin: 06/14/18 09:31 Dose: 100 mls/hr Dextrose/Sodium Chloride (D5-1/2ns -) 1,000 mls @ 75 mls/hr IV ASDIR [facility] Last Admin: 06/14/18 00:00 Dose: 75 mls/hr Losartan Potassium (Cozaar -) 100 mg PO DAILY [facility] Last Admin: 06/14/18 09:32 Dose: 100 mg Metoprolol Succinate (Toprol Xl -) 50 mg PO DAILY [facility] Last Admin: 06/14/18 09:32 Dose: 50 mg - Objective Vital Signs: Vital Signs Temperature 98.3 F 06/14/18 14:08 Pulse Rate 57 L 06/14/18 14:08 Respiratory Rate 20 06/14/18 14:08 Blood Pressure 110/63 06/14/18 14:08 O2 Sat by Pulse Oximetry (%) 100 06/14/18 09:00 Constitutional: Yes: No Distress, Calm Cardiovascular: Yes: Regular Rate and Rhythm Respiratory: Yes: Regular, CTA Bilaterally Gastrointestinal: Yes: Normal Bowel Sounds, Soft Musculoskeletal: Yes: WNL Extremities: Yes: WNL Neurological: Yes: Alert, Oriented Psychiatric: Yes: Alert, Oriented Labs: CBC, BMP 06/13/18 12:25 06/13/18 12:25 Assessment/Plan Problem List - Problems (1) UTI (urinary tract infection) Code(s): N39.0 - URINARY TRACT INFECTION, SITE NOT SPECIFIED Qualifiers: Urinary tract infection type: site unspecified Hematuria presence: with hematuria Qualified Code(s): N39.0 - Urinary tract infection, site not specified; R31.9 - Hematuria, unspecified; R31.9 - Hematuria, unspecified (2) Diarrhea Code(s): R19.7 - DIARRHEA, UNSPECIFIED (3) HTN (hypertension) Code(s): I10 - ESSENTIAL (PRIMARY) HYPERTENSION patient with multidrug resistant uti plan continue current mgmt await for finalization of cx rest as per the team
[2018-06-14] MEDS: DEXTROSE 5%-0.45% SALINE 1,000 ML IV SCH ×2 (16:37)
--- NOTE | 2018-06-14 22:28 | PN ---
Progress Note, Physician History of Present Illness: Pt complains of diarrhea - Current Medication List Current Medications: Active Medications Acetaminophen (Tylenol -) 650 mg PO Q6H PRN PRN Reason: FEVER Last Admin: 06/14/18 17:56 Dose: 650 mg Hydrochlorothiazide (Hctz -) 25 mg PO DAILY [facility] Last Admin: 06/14/18 09:32 Dose: 25 mg Piperacillin Sod/Tazobactam (Sod 3.375 gm/ Dextrose) 50 mls @ 100 mls/hr IVPB Q8H-IV [facility]; Protocol Last Admin: 06/14/18 17:15 Dose: 100 mls/hr Dextrose/Sodium Chloride (D5-1/2ns -) 1,000 mls @ 75 mls/hr IV ASDIR [facility] Last Admin: 06/14/18 16:37 Dose: 75 mls/hr Losartan Potassium (Cozaar -) 100 mg PO DAILY [facility] Last Admin: 06/14/18 09:32 Dose: 100 mg Metoprolol Succinate (Toprol Xl -) 50 mg PO DAILY [facility] Last Admin: 06/14/18 09:32 Dose: 50 mg - Objective Vital Signs: Vital Signs Temperature 98.4 F 06/14/18 18:28 Pulse Rate 55 L 06/14/18 18:28 Respiratory Rate 20 06/14/18 18:28 Blood Pressure 132/61 06/14/18 18:28 O2 Sat by Pulse Oximetry (%) 100 06/14/18 09:00 Neck: Yes: WNL, Supple Cardiovascular: Yes: WNL, Regular Rate and Rhythm Respiratory: Yes: WNL, Regular, CTA Bilaterally Gastrointestinal: Yes: WNL, Normal Bowel Sounds, Soft Labs: CBC, BMP 06/13/18 12:25 06/13/18 12:25 Problem List - Problems (1) UTI (urinary tract infection) Assessment/Plan: Cont IV zosyn Await cultures Code(s): N39.0 - URINARY TRACT INFECTION, SITE NOT SPECIFIED Qualifiers: Urinary tract infection type: site unspecified Hematuria presence: with hematuria Qualified Code(s): N39.0 - Urinary tract infection, site not specified; R31.9 - Hematuria, unspecified; R31.9 - Hematuria, unspecified (2) Diarrhea Assessment/Plan: Check stool studies Code(s): R19.7 - DIARRHEA, UNSPECIFIED (3) HTN (hypertension) Assessment/Plan: BP stable Cont antihypertensives Code(s): I10 - ESSENTIAL (PRIMARY) HYPERTENSION
[2018-06-15] MEDS: DEXTROSE 5%-0.45% SALINE 1,000 ML IV SCH ×2 (00:34→10:30)
[2018-06-15] MEDS ORDERED: DEXTROSE 5%-WATER - 50 ML IVPB ONE ×2 (01:18→10:19)
[2018-06-15] MEDS ORDERED: PIPERACILLIN/TAZOBACTAM 3.375 GM VIAL IVPB ONE ×2 (01:18→10:19)
[2018-06-15] MEDS: PIPERACILLIN/TAZOB 3.375 GM 3.375 GM in DEXTROSE 5%-WATER - 50 ML IVPB SCH ×2 (01:22→10:25)
[2018-06-15] MEDS: HYDROCHLOROTHIAZIDE 25 MG TABLET (FP) PO SCH (10:26)
[2018-06-15] MEDS: LOSARTAN POTASSIUM 50 MG TABLET (FP) PO SCH (10:26)
--- NOTE | 2018-06-15 12:28 | PN ---
Progress Note, Physician History of Present Illness: stable no issues all cx noted patient now has very minimal growth symptoms ahve resolved - Current Medication List Current Medications: Active Medications Acetaminophen (Tylenol -) 650 mg PO Q6H PRN PRN Reason: FEVER Last Admin: 06/14/18 17:56 Dose: 650 mg Hydrochlorothiazide (Hctz -) 25 mg PO DAILY [facility] Last Admin: 06/15/18 10:26 Dose: 25 mg Piperacillin Sod/Tazobactam (Sod 3.375 gm/ Dextrose) 50 mls @ 100 mls/hr IVPB Q8H-IV [facility]; Protocol Last Admin: 06/15/18 10:25 Dose: 100 mls/hr Dextrose/Sodium Chloride (D5-1/2ns -) 1,000 mls @ 75 mls/hr IV ASDIR [facility] Last Admin: 06/15/18 10:30 Dose: Not Given Losartan Potassium (Cozaar -) 100 mg PO DAILY [facility] Last Admin: 06/15/18 10:26 Dose: 100 mg Metoprolol Succinate (Toprol Xl -) 50 mg PO DAILY [facility] Last Admin: 06/15/18 10:26 Dose: 50 mg - Objective Vital Signs: Vital Signs Temperature 98.6 F 06/15/18 09:00 Pulse Rate 58 L 06/15/18 09:00 Respiratory Rate 18 06/15/18 09:00 Blood Pressure 128/64 06/15/18 09:00 O2 Sat by Pulse Oximetry (%) 100 06/15/18 03:08 Constitutional: Yes: No Distress, Calm Respiratory: Yes: Regular, CTA Bilaterally Gastrointestinal: Yes: Normal Bowel Sounds, Soft Musculoskeletal: Yes: WNL Extremities: Yes: WNL Neurological: Yes: Alert, Oriented Psychiatric: Yes: Alert, Oriented Labs: CBC, BMP 06/13/18 12:25 06/13/18 12:25 Assessment/Plan Problem List - Problems (1) UTI (urinary tract infection) Code(s): N39.0 - URINARY TRACT INFECTION, SITE NOT SPECIFIED Qualifiers: Urinary tract infection type: site unspecified Hematuria presence: with hematuria Qualified Code(s): N39.0 - Urinary tract infection, site not specified; R31.9 - Hematuria, unspecified; R31.9 - Hematuria, unspecified (2) Diarrhea Code(s): R19.7 - DIARRHEA, UNSPECIFIED (3) HTN (hypertension) Code(s): I10 - ESSENTIAL (PRIMARY) HYPERTENSION patient with multidrug resistant uti plan can stop abx can send patient home rest as per the team will not need any abx
[2018-06-15 13:56] VITALS: BP 118/54; PULSE 54; TEMP 98.3
== END 2018-06-15 16:47 | disposition home or self-care (01) | DRG 690 ==
LOC: JER 10:55 → JERBED 13:17 → INTOOBSV 13:17 → OBSVTOIN 13:17 → J7W 17:15
PROVIDERS: ADMIT Internal Medicine; ATTEND Internal Medicine
DX: N39.0 Urinary tract infection, site not specified (principal); I10 Essential (primary) hypertension; Z87.891 Personal history of nicotine dependence; B96.29 Other Escherichia coli [E. coli] as the cause of diseases classified elsewhere; Z90.710 Acquired absence of both cervix and uterus; R19.7 Diarrhea, unspecified
CPT/HCPCS: 36415; 71046-TC-FY; 80053; 81003; 81015; 85025; 87040; 87086; 93005; 93010; 99284-25

== ENCOUNTER 2019-04-30 20:14 | Emergency (ER) | payer OTHER | END 2019-05-01 04:10 | disposition home or self-care (01) | LOC: JER 05-01 04:10 ==

== ENCOUNTER 2019-05-01 16:34 | Inpatient (IN) | payer OTHER ==
--- NOTE | 2019-05-01 16:40 | PDOC ---
Rapid Medical Evaluation Time Seen by Provider: 05/01/19 16:38 Medical Evaluation: Allergies Allergy/AdvReac Type Severity Reaction Status Date / Time No Known Allergies Allergy Verified 06/13/18 11:36 05/01/19 16:38 HPI: Pt called back because of positive blood cx PE: No gross deficits ORDERS: Tylenol Discharge Disposition - Diagnosis Sepsis - Referrals - Patient Instructions - Post Discharge Activity
[2019-05-01] MEDS ORDERED: ACETAMINOPHEN 500 MG TABLET (FP) PO ONE (16:42)
--- NOTE | 2019-05-01 17:31 | PDOC ---
History of Present Illness - General Chief Complaint: Pain Stated Complaint: ABDNORMAL LABS Time Seen by Provider: 05/01/19 16:38 - History of Present Illness Initial Comments: 05/01/19 17:40 Ms. Javier is a 68 female w/ pmh of HTN, urinary incontinence and UTIs, s/p hysterectomy who presented last night for 2 days of abdominal and flank pain w/ fever. Was found to have UTI last night and given 1gm rocephin IV w/ home keflex. Patient presents today as she received a call that one of her blood cultures was positive for gram negative rods (anaerobic bottle) and told to represent. Patient reports her symptoms have remained the same. Endorses current incontinence and urinary frequency. Further reports she feels like she may have a fever. The patient denies chest pain, shortness of breath, headache and dizziness. Denies chills, nausea, vomit, diarrhea and constipation. Past History - Past Medical History Allergies/Adverse Reactions: Allergies Allergy/AdvReac Type Severity Reaction Status Date / Time No Known Allergies Allergy Verified 06/13/18 11:36 Home Medications: Ambulatory Orders Losartan/Hydrochlorothiazide [Losartan-Hctz 100-25 mg Tab] 1 each PO DAILY 10/05 Metoprolol Succinate 50 mg PO DAILY 10/05/17 Cephalexin Monohydrate [Keflex -] 500 mg PO Q6H #28 capsule 05/01/19 Cancer: Yes (cervical) COPD: No DVT: No HTN: Yes - Suicide/Smoking/Psychosocial Hx Smoking Status: No Smoking History: Never smoked Have you smoked in the past 12 months: No Number of Cigarettes Smoked Daily: 0 If you are a former smoker, when did you quit?: 2010 Cigars Per Day: 0 Hx Alcohol Use: No Drug/Substance Use Hx: No Substance Use Type: None Hx Substance Use Treatment: No Review of Systems - Review of Systems Comments:: 05/01/19 17:44 GENERAL/CONSTITUTIONAL: +Subjective fevers. No weakness. HEAD, EYES, EARS, NOSE AND THROAT: No change in vision. No ear pain or discharge. No sore throat. CARDIOVASCULAR: No chest pain or shortness of breath RESPIRATORY: No cough, wheezing, or hemoptysis. GASTROINTESTINAL: No nausea, vomiting, diarrhea or constipation. GENITOURINARY: +Urinary changes as described. MUSCULOSKELETAL: No joint or muscle swelling or pain. No neck or back pain. SKIN: No rash NEUROLOGIC: No headache, vertigo, loss of consciousness, or change in strength/ sensation. ENDOCRINE: No increased thirst. No abnormal weight change HEMATOLOGIC/LYMPHATIC: No anemia, easy bleeding, or history of blood clots. ALLERGIC/IMMUNOLOGIC: No hives or skin allergy. *Physical Exam - Vital Signs Last Vital Signs Temp Pulse Resp BP Pulse Ox 101 F H 92 H 18 183/68 H 100 05/01/19 16:38 05/01/19 16:38 05/01/19 16:38 05/01/19 16:38 05/01/19 16:38 - Physical Exam Comments: 05/01/19 17:45 GENERAL: Awake, alert, and fully oriented, in no acute distress HEAD: No signs of trauma, normocephalic, atraumatic EYES: PERRLA, EOMI, sclera anicteric, conjunctiva clear ENT: Auricles normal inspection, hearing grossly normal, nares patent, oropharynx clear without exudates. Moist mucosa NECK: Normal ROM, supple, no lymphadenopathy, JVD, or masses LUNGS: No distress, speaks full sentences, clear to auscultation bilaterally HEART: Regular rate and rhythm, normal S1 and S2, no murmurs, rubs or gallops, peripheral pulses normal and equal bilaterally. ABDOMEN: Soft, nontender, normoactive bowel sounds. No guarding, no rebound. No masses EXTREMITIES: Normal inspection, Normal range of motion, no edema. No clubbing or cyanosis. NEUROLOGICAL: Cranial nerves II through XII grossly intact. Normal speech, normal gait, no focal sensorimotor deficits SKIN: Warm, Dry, normal turgor, no rashes or lesions noted. Medical Decision Making - Medical Decision Making 05/01/19 18:04 Ms. Javier is a 68 yo female w/ pmh as described who presents for evaluation after call directing her to come in for bacteremia. Patient will be evaluated for septic labs and admitted. 05/01/19 18:47 Patient workup pending. Patient signed out to Dr. Duarte for further evaluation. *DC/Admit/Observation/Transfer Diagnosis at time of Disposition: Sepsis Qualifiers: Sepsis type: sepsis due to unspecified organism Sepsis acute organ dysfunction status: unspecified Qualified Code(s): A41.9 - Sepsis, unspecified organism - Discharge Dispostion Decision to Admit order: Yes - Referrals - Patient Instructions - Post Discharge Activity
[2019-05-01] MEDS ORDERED: CEFTRIAXONE 1,000 MG in DEXTROSE 5%-WATER - 50 ML IVPB ONE (17:57)
--- NOTE | 2019-05-01 19:12 | PDOC ---
*Physical Exam - Vital Signs Last Vital Signs Temp Pulse Resp BP Pulse Ox 101 F H 92 H 18 183/68 H 100 05/01/19 16:38 05/01/19 16:38 05/01/19 16:38 05/01/19 16:38 05/01/19 16:38 Medical Decision Making - Medical Decision Making 05/01/19 19:12 Patient is 68F with history of HTN, urinary incontinence here today after being called back for blood culture with gram negative rods. Given ceftriaxone yesterday. Febrile today. Pending admission. Given ceftriaxone. Patient is currently stable. Case d/w Dr Momin. *DC/Admit/Observation/Transfer Diagnosis at time of Disposition: Sepsis Qualifiers: Sepsis type: sepsis due to unspecified organism Sepsis acute organ dysfunction status: unspecified Qualified Code(s): A41.9 - Sepsis, unspecified organism - Referrals Referrals: Juan Ramon Jack MD [Primary Care Provider] - - Patient Instructions - Post Discharge Activity
[2019-05-01 19:28] LABS: VENOUS PC02 38.8 mmHg (41-51); VENOUS PH 7.45 (7.31-7.41); VENOUS PO2 33.2 mmHg (30-40)
[2019-05-01] MEDS ORDERED: CEFTRIAXONE 1 GM/50 ML BAG ONE ×2 (19:29→22:30)
--- NOTE | 2019-05-01 19:30 | PN ---
Teaching Attending Note Name of Resident: Maria D Farnsworth ATTENDING PHYSICIAN STATEMENT I saw and evaluated the patient. I reviewed the resident's note and discussed the case with the resident. I agree with the resident's findings and plan as documented. 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 Was found to have UTI last night and given 1 gm Rocephin IV and discharged on Keflex. Patient comes back today as she received a call that one of her blood cultures was positive for gram negative rods (anaerobic bottle). Patient reports her symptoms have remained the same. Currently has incontinence and urinary frequency. Further reports she feels like she may have a fever. Has family history of cancer (unspecified) and hypertension. The patient denies chest pain, shortness of breath, headache and dizziness. Denies chills, nausea, vomit, diarrhea and constipation. OBJECTIVE: Alert Vital Signs Period Temp Pulse Resp BP Sys/[place] Pulse Ox Last 24 Hr 101 F 92 18 183/68 100 HEENT: No Jaundice, eye redness or discharge, PERRLA, EOMI. Normocephalic, atraumatic. External ears are normal and hearing is grossly intact. No nasal discharge. Neck: Supple, nontender. No palpable adenopathy or thyromegaly. No JVD Chest: Good effort. Clear to auscultation and percussion. Heart: Regular. No S3, rub or murmur Abdomen: Not distended, soft, suprapubic and right CVA tenderness; no HSM. No rebound or guarding. Normal bowel sounds. Ext: Peripheral pulses intact. No leg edema. Skin: Warm and dry. No petechiae, rash or ecchymosis. Neuro: Alert. Oriented x3. CN 2-12 grossly intact. Sensation grossly intact in all four extremities and DTR are symmetric. Psych: Appropriate mood and affect. Good insight. Home Medications Medication Instructions Recorded Losartan/Hydrochlorothiazide 1 each PO DAILY 10/05/17 [Losartan-Hctz 100-25 mg Tab] Metoprolol Succinate 50 mg PO DAILY 10/05/17 Cephalexin Monohydrate [Keflex -] 500 mg PO Q6H #28 capsule 05/01/19 Abnormal Lab Results 05/01/19 05/01/19 05/01/19 19:19 19:19 19:25 WBC 10.5 H Absolute Neuts (auto) 8.5 H PT with INR 15.20 H INR 1.28 H VBG pH 7.45 H POC VBG pCO2 38.8 L VBG O2 Sat (Tim) 64.0 L VBG Base Excess 3.1 H ASSESSMENT AND PLAN: 1. Sepsis due to Pyelonephritis - Being treated with IV Rocephin pending results of urine culture. Continue IV NS and trend lactic acid. No acute abnormality on CXR and EKG shows NSR with no significant ST-T wave changes. CT scan from her earlier visit shows bilateral moderate hydronephrosis and thickened urinary bladder. Will consult Urology. Will get more information from her PCP about the possible cystovaginal fistula and consult STOCK PREPARATION SUPERVISOR. 2. Overweight Counseled on the risks associated with being overweight. Will provide patient all the necessary assistance, counseling and positive reinforcement to facilitate weight loss. Consult acoustic sensor operator. 3. BETHANY? - May be due to an underlying urinary outlet obstruction that is causing hydronephrosis, though she has risk factors for CKD. Get PTH and phosphate levels. Consult nephrology and avoid nephrotoxic agents such as NSAIDS , aminoglycosides, contrast dyes and certain Alternative medicine products. 4. Hypertension - Restart suitable outpatient antihypertensive drugs when clinically appropriate. Revise regimen to ensure [id number] excellent BP control and cancer genetic counselor patient on the injurious effects of uncontrolled hypertension. Nonpharmacologic measures to control hypertension like weight loss , salt restriction and exercise discussed. Importance of adherence to treatment regimen and attainment of normotension emphasized. 5. DVT prophylaxis - Lovenox 40 mg SQ q 24 hours. 6. Advance directives - Full code HEENT: No Jaundice, eye redness or discharge, PERRLA, EOMI. Normocephalic, atraumatic. External ears are normal and hearing is grossly intact. No nasal discharge. Neck: Supple, nontender. No palpable adenopathy or thyromegaly. No JVD Chest: Good effort. Clear to auscultation and percussion. Heart: Regular. No S3, rub or murmur Abdomen: Not distended, soft, nontender and no HSM. No rebound or guarding. Normal bowel sounds. Ext: Peripheral pulses intact. No leg edema. Skin: Warm and dry. No petechiae, rash or ecchymosis. Neuro: Alert. Oriented x3. CN 2-12 grossly intact. Sensation grossly intact in all four extremities and DTR are symmetric. Psych: Appropriate mood and affect. Good insight. Hypoalbuminemia - Possibly due to combined effects of malnutrition and inflammation associated with comorbid chronic conditions. Will ensure adequate dietary protein intake and also consult acoustic sensor operator. DM For now, we will hold the home diabetes drugs and implement sliding scale insulin regimen. Provide comprehensive diabetes care with patient teaching and counseling about the importance of adherence to prescribed diabetes regimen, euglycemia, eye care and foot care. Tobacco Use Counseled on risks associated with tobacco use. We will provide patient all the necessary assistance to facilitate smoking cessation and prescribe Nicotine patch. Will consult nephrology and avoid nephrotoxic agents such as NSAIDS, aminoglycosides, contrast dyes and certain Alternative medicine products. Anemia -Do basic anemia work up including serial stool guaiacs, reticulocyte count and iron studies. Would benefit from Procrit therapy once iron replete. Obesity Counseled on the risks associated with obesity. Will provide patient all the necessary assistance, counseling and positive reinforcement to facilitate weight loss. Consult acoustic sensor operator. Alcohol abuse - Implement [facility] alcohol withdrawal protocol and do neurochecks. Implement seizure, fall and aspiration precautions. Treat with thiamine and folic acid and monitor electrolytes (Ca,Mg,K,P). Counseled patient about abstaining from alcohol. Will consult duplication specialist and refer to alcohol detox upon discharge. Hypertension - Restart suitable outpatient antihypertensive drugs when clinically appropriate. Revise regimen to ensure [id number] excellent BP control and cancer genetic counselor patient on the injurious effects of uncontrolled hypertension. Nonpharmacologic measures to control hypertension like weight loss , salt restriction and exercise discussed. Importance of adherence to treatment regimen and attainment of normotension emphasized. DVT prophylaxis - Lovenox 40 mg SQ q 24 hours. Heparin 5000u sq tid. Advance directives - Full code
[2019-05-01 19:33] LABS: BASO % 0.2 % (0-2.0); EOS % 0.2 % (0-4.5); HEMATOCRIT 32.9 % (32.4-45.2); LYMPH % 11.2 % (8-40); MCH 29.2 pg (25.7-33.7); MCHC 33.5 g/dl (32.0-36.0); MEAN PLT VOLUME 9.5 fl (7.5-11.1); MONO % 7.4 % (3.8-10.2); PLATELET COUNT 217 K/MM3 (134-434); RBC 3.78 M/mm3 (3.60-5.2); RDW 15.1 % (11.6-15.6); WHITE BLOOD COUNT 10.5 K/mm3 (4.0-10.0)
[2019-05-01] MEDS ORDERED: ACETAMINOPHEN 500 MG TABLET (FP) ONE (19:40)
[2019-05-01 19:54] LABS: INR 1.28 (0.83-1.09); PROTHROMBIN TIME (PATIENT) 15.2 SEC (9.7-13.0)
[2019-05-01 19:56] LABS: ACTIVATED PTT 27.6 SECONDS (25.2-36.5)
[2019-05-01 20:27] LABS: ALBUMIN 3.7 g/dl (3.4-5.0); ALK PHOS 68 U/L (45-117); ANION GAP 9 MMOL/L (8-16); BILIRUBIN,TOTAL 1.6 mg/dL (0.2-1); BLOOD UREA NITROGEN 16.2 mg/dL (7-18); CALCIUM 8.7 mg/dL (8.5-10.1); CHLORIDE 98 mmol/L (98-107); CO2 28 mmol/L (21-32); CREATININE 1.4 mg/dL (0.55-1.3); GLUCOSE,RANDOM 110 mg/dL (74-106); POTASSIUM 3.6 mmol/L (3.5-5.1); SGOT/AST 20 U/L (15-37); SGPT/ALT 25 U/L (13-61); SODIUM 134 mmol/L (136-145); TOT PROT 7.6 g/dl (6.4-8.2)
[2019-05-01] MEDS ORDERED: SODIUM CHLORIDE 1,000 ML IV SCH (21:00)
[2019-05-01] MEDS ORDERED: HEPARIN NA (PORCINE) 5,000 UNITS/ML 1ML VIAL ONE (22:30)
[2019-05-01] MEDS: HEPARIN NA (PORCINE) 5,000 UNITS/ML 1ML VIAL SQ SCH (22:38)
[2019-05-02 04:13] VITALS: BMI 30.8
[2019-05-02] MEDS: ACETAMINOPHEN 325 MG TABLET (FP) PO PRN ×2 (04:39→21:39)
[2019-05-02] MEDS: HEPARIN NA (PORCINE) 5,000 UNITS/ML 1ML VIAL SQ SCH ×3 (05:55→21:39)
--- NOTE | 2019-05-02 06:04 | HP ---
CHIEF COMPLAINT: suprapubic pain PCP: Dr. Jack HISTORY OF PRESENT ILLNESS: 68 y/o F, pmh of uterine ca s/p hysterectomy, cysto-vaginal fistula s/p radiation tx, urinary incontinence, previous UTI's, presents to the ED c/o of lower abdominal pain associated w/ fever of 2 day duration that was treated in the ED yesterday with Rocephin. Pt was discharged on abx after urine Cx was collected. However, the results of the urine cx was positive for gram neg in anaerobic bottle and hence pt was asked to return to the ED. Pt reports previous hx of UTI's w/ the most recent one 5 months ago. She also reports chronic hx of diarrhea s/p meals since cancer treatment, which she says is normal to her. Currently, pt is afebrile but still c/o of supra-pubic pain. Pt denies chills, n/v, headaches, chest pain, sob, numbness, tingling. ER course was notable for: (1) CT- hydronephrosis b/l rt>lt, thickened bladder (2) Ceftriaxone 1 gm (3) CT spine- chronic changes, dextroscoliosis of the LS. Recent Travel: Travelled to [facility] 2 weeks ago PAST MEDICAL HISTORY: uterine ca s/p hysterectomy 1988, cysto-vaginal fistula s/p radiation tx, urinary incontinence, previous UTI's Diverticulitis PAST SURGICAL HISTORY: left shoulder repair Appendectomy Social History: Smoking: denies Alcohol: denies Drugs: denies Family History: Allergies No Known Allergies Allergy (Verified 06/13/18 11:36) HOME MEDICATIONS: Home Medications Medication Instructions Recorded Losartan/Hydrochlorothiazide 1 each PO DAILY 10/05/17 [Losartan-Hctz 100-25 mg Tab] Metoprolol Succinate 50 mg PO DAILY 10/05/17 Cephalexin Monohydrate [Keflex -] 500 mg PO Q6H #28 capsule 05/01/19 Irbesartan/Hydrochlorothiazide 12.5 mg PO DAILY 05/02/19 [Irbesartan-Hctz 300-12.5 mg Tb] REVIEW OF SYSTEMS CONSTITUTIONAL: Admit: fever Absent: chills, diaphoresis, generalized weakness, malaise, loss of appetite, weight change HEENT: Absent: eye pain, visual changes CARDIOVASCULAR: Absent: chest pain, syncope, palpitations, lightheadedness, peripheral edema RESPIRATORY: Absent: cough, shortness of breath, dyspnea with exertion, wheezing, hemoptysis GASTROINTESTINAL: Admits: mild- moderate supra-pubic pain Absent: abdominal distension, nausea, vomiting, diarrhea, constipation, melena, hematochezia GENITOURINARY: admits: mild dysuria, Absent: frequency, urgency, hematuria, flank pain, genital pain MUSCULOSKELETAL: Absent: back pain ENDOCRINE: Absent: unexplained weight gain, unexplained weight loss NEUROLOGIC: Absent: headache, focal weakness, dizziness, unsteady gait, seizure, bladder or bowel incontinence PSYCHIATRIC: Absent: anxiety PHYSICAL EXAMINATION Vital Signs - 24 hr Last Vital Signs Temp Pulse Resp BP Pulse Ox 99.4 F 90 18 159/95 100 05/02/19 05:57 05/02/19 03:41 05/02/19 03:41 05/02/19 03:41 05/02/19 03:41 GENERAL: Awake, alert, and fully oriented, in no acute distress. EYES: PERRLA, EOMI EARS, NOSE, THROAT: oropharynx clear without exudates. Moist mucous membranes. NECK: supple without lymphadenopathy, JVD, or masses, no bruit LUNGS: Breath sounds equal, clear to auscultation bilaterally. No wheezes, and no crackles. HEART: RRR, normal S1 and S2 without, rub or gallop. Mild systolic murmur can be appreciated. ABDOMEN: Mild-moderate suprapubic pain on deep palpation. Soft, not distended, normoactive bowel sounds, no guarding, no rebound, no masses. No hepatomegaly or splenomegaly. MUSCULOSKELETAL: CVA tenderness positive right side UPPER EXTREMITIES: 2+ pulses, warm, well-perfused. No cyanosis. No peripheral edema. LOWER EXTREMITIES: 2+ pulses, warm, well-perfused. No peripheral edema. PSYCHIATRIC: Cooperative. Good eye contact. Appropriate mood and affect. Laboratory Results - last 24 hr CBC, BMP 05/01/19 19:19 05/01/19 16:41 ASSESSMENT/PLAN: 68 y/o F, pmh of uterine ca s/p hysterectomy, cysto-vaginal fistula s/p radiation tx, previous UTI's, presents to the ED c/o of lower abdominal pain associated w/ fever of 2 day duration #Sepsis 2/2 to pyelonephritis CVA+ and UA+ BCx- gram neg baci in anaerobe bottles continue ceftriaxone Consult urology for cystovaginal fistula- likely cause of repeated UTI Consult program strategist in am if day team approves NS at 100 Tylenol for fever Elevated Lactic acid- coming down now- keep trending till normalizes #Hyperbilirubinemia Total bili 1.3 Previous visit Total bili was normal RUQ U/S continue to trend #Chronic Diarrhea Due to hx of cancer tx Loperamide at home symptomatic tx w/ loperamide if needed monitor bmp monitor for dehydration #DVT ppx Heparin 5000 sq FEN: Sodium controlled diet Dispo: continue abx, consult uro, trend total bili and lactate, symptomatic management Visit type - Emergency Visit Emergency Visit: Yes ED Registration Date: 05/01/19 Care time: The patient presented to the Emergency Department on the above date and was hospitalized for further evaluation of their emergent condition. - New Patient This patient is new to me today: Yes Date on this admission: 05/07/19 - Critical Care Critical Care patient: No ATTENDING PHYSICIAN STATEMENT I saw and evaluated the patient. I reviewed the resident's note and discussed the case with the resident. I agree with the resident's findings and plan as documented. SUBJECTIVE: OBJECTIVE: ASSESSMENT AND PLAN:
[2019-05-02 08:17] LABS: BASO % 0.2 % (0-2.0); EOS % 0.6 % (0-4.5); HEMATOCRIT 30.7 % (32.4-45.2); HEMOGLOBIN 10.2 GM/dL (10.7-15.3); LYMPH % 21.7 % (8-40); MCHC 33.2 g/dl (32.0-36.0); MEAN CELL VOLUME 87.2 fl (80-96); MEAN PLT VOLUME 10.3 fl (7.5-11.1); MONO % 8.3 % (3.8-10.2); NEUT % 69.2 % (42.8-82.8); PLATELET COUNT 207 K/MM3 (134-434); RBC 3.53 M/mm3 (3.60-5.2); RDW 15.1 % (11.6-15.6); WHITE BLOOD COUNT 8.6 K/mm3 (4.0-10.0)
[2019-05-02 08:33] LABS: ALBUMIN 3.3 g/dl (3.4-5.0); BILIRUBIN,TOTAL 1.2 mg/dL (0.2-1); BLOOD UREA NITROGEN 15.1 mg/dL (7-18); CALCIUM 8.5 mg/dL (8.5-10.1); CREATININE 1.4 mg/dL (0.55-1.3); POTASSIUM 4.2 mmol/L (3.5-5.1); TOT PROT 6.9 g/dl (6.4-8.2)
[2019-05-02 10:14] LABS: MAGNESIUM 1.9 mg/dL (1.8-2.4); PHOSPHOROUS 3.8 mg/dL (2.5-4.9)
--- NOTE | 2019-05-02 11:08 | EKG ---
Test Reason : Blood Pressure : / mmHG Vent. Rate : 091 BPM Atrial Rate : 091 BPM P-R Int : 112 ms QRS Dur : 082 ms QT Int : 336 ms P-R-T Axes : 023 008 031 degrees QTc Int : 413 ms NORMAL SINUS RHYTHM WHEN COMPARED WITH ECG OF 30-APR-2019 20:48, NO SIGNIFICANT CHANGE WAS FOUND Confirmed by THIAGO TURNER MD ([id number]) on 05/02/2019 11:07:58 AM Referred By: Confirmed By:THIAGO TURNER MD
[2019-05-02] MEDS ORDERED: DEXTROSE 5%-WATER 100 ML IVPB ONE (11:27)
[2019-05-02] MEDS: CEFTRIAXONE 2 GM in DEXTROSE 5%-WATER 100 ML IVPB SCH (11:35)
--- NOTE | 2019-05-02 14:09 | PN ---
Physical Exam: SUBJECTIVE: Patient seen and examined by the bedside. Patient is Portuguese speaking, bedside planning intern service used, planning intern #[id number]. OBJECTIVE: Vital Signs Period Temp Pulse Resp BP Sys/[place] Pulse Ox Last 24 Hr 98.6 F-101.2 F 68-98 18-18 143-183/63-95 96-100 GENERAL: The patient is awake, alert, and fully oriented, in no acute distress. HEAD: Normal with no signs of trauma. EYES: PERRL, extraocular movements intact, sclera anicteric, conjunctiva clear. No ptosis. ENT: Ears normal, nares patent, oropharynx clear without exudates, moist mucous membranes. NECK: Trachea midline, full range of motion, supple. LUNGS: Breath sounds equal, clear to auscultation bilaterally, no wheezes, no crackles, no accessory muscle use. HEART: Regular rate and rhythm, S1, S2 with 3/6 systolic murmur on right sternal border. ABDOMEN: Soft, nontender, nondistended, mild right sided CVA tenderness EXTREMITIES: 2+ pulses, warm, well-perfused, no edema. NEUROLOGICAL: Cranial nerves II through XII grossly intact. Normal speech, gait not observed. PSYCH: Normal mood, normal affect. SKIN: Warm, dry, normal turgor, no rashes or lesions noted Laboratory Results - last 24 hr 05/01/19 05/01/19 05/01/19 16:41 19:19 19:19 WBC 10.5 H RBC 3.78 Hgb 11.0 Hct 32.9 MCV 87.0 MCH 29.2 MCHC 33.5 RDW 15.1 Plt Count 217 MPV 9.5 Absolute Neuts (auto) 8.5 H Neutrophils % 81.0 Lymphocytes % 11.2 D Monocytes % 7.4 Eosinophils % 0.2 Basophils % 0.2 Nucleated RBC % 0 PT with INR 15.20 H INR 1.28 H PTT (Actin FS) 27.6 VBG pH POC VBG pCO2 POC VBG pO2 VBG HCO3 VBG O2 Sat (Tim) VBG Base Excess Sodium 134 L Potassium 3.6 Chloride 98 Carbon Dioxide 28 Anion Gap 9 BUN 16.2 Creatinine 1.4 H Est GFR (CKD-EPI)AfAm 44.95 Est GFR (CKD-EPI)NonAf 38.78 Random Glucose 110 H Lactic Acid Calcium 8.7 Phosphorus Magnesium Total Bilirubin 1.6 H AST 20 ALT 25 Alkaline Phosphatase 68 Creatine Kinase 91 Troponin I < 0.02 Total Protein 7.6 Albumin 3.7 05/01/19 05/01/19 05/02/19 19:19 19:25 02:25 WBC RBC Hgb Hct MCV MCH MCHC RDW Plt Count MPV Absolute Neuts (auto) Neutrophils % Lymphocytes % Monocytes % Eosinophils % Basophils % Nucleated RBC % PT with INR INR PTT (Actin FS) VBG pH 7.45 H POC VBG pCO2 38.8 L POC VBG pO2 33.2 VBG HCO3 26.7 VBG O2 Sat (Tim) 64.0 L VBG Base Excess 3.1 H Sodium Potassium Chloride Carbon Dioxide Anion Gap BUN Creatinine Est GFR (CKD-EPI)AfAm Est GFR (CKD-EPI)NonAf Random Glucose Lactic Acid 1.4 1.2 Calcium Phosphorus Magnesium Total Bilirubin AST ALT Alkaline Phosphatase Creatine Kinase Troponin I Total Protein Albumin 05/02/19 05/02/19 07:12 07:12 WBC 8.6 RBC 3.53 L Hgb 10.2 L Hct 30.7 L MCV 87.2 MCH 29.0 MCHC 33.2 RDW 15.1 Plt Count 207 MPV 10.3 Absolute Neuts (auto) 5.9 Neutrophils % 69.2 Lymphocytes % 21.7 D Monocytes % 8.3 Eosinophils % 0.6 D Basophils % 0.2 Nucleated RBC % 0 PT with INR INR PTT (Actin FS) VBG pH POC VBG pCO2 POC VBG pO2 VBG HCO3 VBG O2 Sat (Tim) VBG Base Excess Sodium 138 Potassium 4.2 Chloride 102 Carbon Dioxide 29 Anion Gap 8 BUN 15.1 Creatinine 1.4 H Est GFR (CKD-EPI)AfAm 44.95 Est GFR (CKD-EPI)NonAf 38.78 Random Glucose 99 Lactic Acid Calcium 8.5 Phosphorus 3.8 Magnesium 1.9 Total Bilirubin 1.2 H AST 28 ALT 30 Alkaline Phosphatase 65 Creatine Kinase Troponin I Total Protein 6.9 Albumin 3.3 L Active Medications Generic Name Dose Route Start Last Admin Trade Name Freq PRN Reason Stop Dose Admin Acetaminophen 650 mg 05/01/19 20:56 05/02/19 04:39 Tylenol - PO 650 mg Q4H PRN Administration PAIN LEVEL 1-5 Heparin Sodium (Porcine) 5,000 unit 05/01/19 22:00 05/02/19 05:55 Heparin - SQ 5,000 unit TID RICO Administration Sodium Chloride 1,000 mls @ 50 mls/hr 05/01/19 21:00 05/01/19 22:09 Normal Saline - IV 05/02/19 20:59 50 mls/hr ASDIR RICO Administration Ceftriaxone Sodium 2 gm/ 100 mls @ 200 mls/hr 05/02/19 10:00 05/02/19 11:35 Dextrose IVPB 200 mls/hr DAILY RICO Administration Protocol ASSESSMENT/PLAN: 68 YO F, PMH of uterine CA, 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 She presented to the ER with lower abdominal pain for the past 2 days, associated with subjective fever. She presented to the ER a day before admission, given 1gm Rocephin, Urine cx was collected and she was DC on Keflex. Urine cx was positive for gram neg in anaerobic bottle and she was asked to return for admission. Pain was sudden in onset, began in LLQ, is constant, 10/10 in intensity at its worst but is currently 4/10. She describes it as neither dull nor sharp. Nothing exacerbates the pain, and she has previously taken ibuprofen for the pain for relief. She has no associated dysuria, hematuria, cough, chills, headaches, sob, numbness, tingling. Her last BM was yesterday and it was soft. ER course was notable for: (1) WBC 10.5 (2) Temp 101.2 (3) CXR no acute abnormality 68 YO F, PMH of uterine CA, 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 She presented to the ER with lower abdominal pain for the past 2 days, associated with subjective fever. #Sepsis 2/2 Pyelonephritis - Previous CT: B/L hydronephosis worse on Right, bladder thickening - UA pending - UCx gram neg baci in anaerobe bottles, repeat pending - Bloodcx: Gram + cocci in clusters - Ceftriaxone 1 gm - ID consulted - Lactic acid 1.4 -> 1.2 - Echo ordered to check for vegetations(Fever and new murmur) to r/o septic emboli #Hyperbilirubinemia - Total Bili 1.6 -> 1.2 - Normal previously #Chronic Diarrhea - Due to hx of cancer tx, not currently active - Loperamide if needed #FEN - N/S @ 50 #DVT ppx - Heparin SQ Visit type - Emergency Visit Emergency Visit: Yes ED Registration Date: 05/01/19 Care time: The patient presented to the Emergency Department on the above date and was hospitalized for further evaluation of their emergent condition. - New Patient This patient is new to me today: Yes Date on this admission: 05/02/19 - Critical Care Critical Care patient: No - Discharge Referral Referred to [facility] Med P.C.: No ATTENDING PHYSICIAN STATEMENT I saw and evaluated the patient. I reviewed the resident's note and discussed the case with the resident. I agree with the resident's findings and plan as documented. SUBJECTIVE: OBJECTIVE: ASSESSMENT AND PLAN:
--- NOTE | 2019-05-02 14:21 | ECHO ---
Name: KITTY HODGESDA Exam:Adult Echocardiogram Study Date: 05/02/2019 01:04 PM Age: 68 yrs Reason For Study: CHECKING FOR VEGETATIONS R/O SEPTIC Height: 60 in Weight: 150 lb BSA: 1.7 m2 MMode/2D Measurements & Calculations IVSd: 0.88 cm Ao root diam: 2.6 cm LVIDd: 4.7 cm LVIDs: 3.2 cm LVPWd: 0.80 cm EDV(Teich): 100.9 ml LVOT diam: 1.9 cm ESV(Teich): 39.6 ml Doppler Measurements & Calculations MV E max max: 102.2 cm/sec Ao V2 max: 339.2 cm/sec MV A max max: 78.0 cm/sec Ao max P.4 mmHg MV E/A: 1.3 Ao V2 mean: 244.1 cm/sec MV dec time: 0.21 sec Ao mean P.3 mmHg Ao V2 VTI: 75.6 cm MARYANN(I,D): 0.93 cm2 AI P1/2t: 352.2 msec MARYANN(V,D): 0.93 cm2 AI max max: 305.6 cm/sec LV V1 max P.7 mmHg AI max P.9 mmHg LV V1 mean P.4 mmHg AI dec slope: 254.1 cm/sec2 LV V1 max: 108.1 cm/sec LV V1 mean: 71.9 cm/sec LV V1 VTI: 24.0 cm MR max max: 375.1 cm/sec SV(LVOT): 70.5 ml MR max P.3 mmHg TR max max: 277.7 cm/sec Med Peak E' Max: 7.1 cm/sec TR max P.0 mmHg Med E/e': 14.4 Lat Peak E' Max: 9.0 cm/sec Lat E/e': 11.4 Left Ventricle Left ventricular systolic function is normal. Ejection Fraction = 55-60%. Left Ventricular Filling pa ttern is normal for age. Right Ventricle The right ventricle is normal in size and function. Atria Normal left and right atrial size and function. Mitral Valve The mitral valve is normal in structure and function. There is no mitral valve stenosis. There is mil d mitral regurgitation. Tricuspid Valve The tricuspid valve is normal in structure and function. There is mild to moderate tricuspid regurgit ation. Right ventricular systolic pressure is elevated at 30-40mmHg. Aortic Valve There is moderate to severe aortic valve thickening. Moderate to severe valvular aortic stenosis. In the paratsternal long axis, there is a small, mobile echodensity which appears to be attached to the left ventricular surface of the aortic valve: this may represent an artifact of calcification, but vegetat ion cannot be excluded. Clinical correlation required, consider JOEL if clinically indicated. Mild aortic regurgitation. Pulmonic Valve The pulmonic valve is not well seen, but is grossly normal. There is no pulmonic valvular stenosis. Great Vessels The aortic root is normal size. Pericardium/Pleura There is no pericardial effusion. Interpretation Summary Left ventricular systolic function is normal. Ejection Fraction = 55-60%. There is mild mitral regurgitation. There is mild to moderate tricuspid regurgitation. Right ventricular systolic pressure is elevated at 30-40mmHg. There is moderate to severe aortic valve thickening. Moderate to severe valvular aortic stenosis. Mild aortic regurgitation. In the paratsternal long axis, there is a small, mobile echodensity which appears to be attached to t he left ventricular surface of the aortic valve: this may represent an artifact of calcification, but vegetat ion cannot be excluded. Clinical correlation required, consider JOEL if clinically indicated. There is no pericardial effusion. MD Tate Carr 05/02/2019 02:20 PM
[2019-05-02] MEDS ORDERED: VANCOMYCIN HCL 1,250 MG in DEXTROSE 5%-WATER - 250 ML IVPB ONE (16:25)
--- NOTE | 2019-05-02 17:37 | PN ---
Progress Note (short form) - Note Progress Note: ID consult dictated imp/reccd suspected gram negative bacteremia from urinary source abnl ct scan with hydro- history of cystovaginal fistual gram positive bacteremia!- not sure if this is real abnl echo- has a murmur (present 2018 when I saw her then)-unlikely endocarditis but abnl echo suggest vanco one dose after repeat blood cultures cardiology to evaluate echo finding esr/crp rocephin urology to evaluate hydronephrosis-?chronic clinically abdominal pain has resolved and fevers are trending down
--- NOTE | 2019-05-02 17:58 | CONS ---
DATE OF CONSULTATION: DATE OF DICTATION: 05/02/2019 INFECTIOUS DISEASE CONSULTATION REQUESTING PHYSICIAN: Hospitalist CONSULTING PHYSICIAN: Sharon Lamb MD HISTORY OF PRESENT ILLNESS: This is a 68-year-old woman who was admitted with fevers for 2 days and right flank pain for 4 days. She was recently at the park, she says, and she fell down, and after that she has been having abdominal pain, which has now resolved. She started to have fever after the fall. She has a history of uterine cancer and has a history of a cystovaginal fistula. She has frequent UTIs and takes Macrobid as an outpatient. She notes that she has had fever for the last 2 days as well. She was seen in the emergency room on the and treated for UTI. She was given a dose of ceftriaxone and discharged home. She was called back the next day because the blood cultures were positive. She had a CAT scan of her abdomen and pelvis done while she was in the ER that showed moderate bilateral hydronephrosis, right greater than left, with dilatation of both ureters, thickened urinary bladder, and that she is status post hysterectomy. Since return, the ceftriaxone was resumed last night, and she is resting comfortably this morning. She has no fever with a T-max of 99.8. She reports that she has no pain and feels well. PAST MEDICAL HISTORY: Notable for history of uterine cancer, cystovaginal fistula, recurrent UTI, radiation proctitis. PAST SURGICAL HISTORY: Notable for appendectomy, hysterectomy, and left shoulder surgery. SOCIAL HISTORY: There is no history of any cigarette, alcohol, or substance use. She is originally from the [place]. ALLERGIES: She has no known drug allergies. MEDICATION: Her medications as an outpatient include losartan, hydrochlorothiazide, metoprolol, and she was started on Keflex. In September she apparently was given Macrobid by the urologist. REVIEW OF SYSTEMS: Notable for chronic diarrhea, which she apparently has had since her cancer treatment, which included radiation. PHYSICAL EXAMINATION: General: She is in bed resting quite comfortably. No acute distress noted. Vital Signs: Temperature is 99.2, T-max since admission was 101.2 early this morning. Her pulse was 73, blood pressure 158/73 mmHg, respiratory rate 18. HEENT: Normocephalic. Eyes are anicteric. Neck: Supple. Lungs: Clear to auscultation. Heart: Regular rate and rhythm. On physical examination she has a harsh 3/6 systolic murmur that when I saw her back in September 2017, noted on my physical examination. Aabdomen: Soft, nontender. Back: She has no CVA tenderness. Extremities: Without edema. LABORATORY: White count is 8.6, hemoglobin 10.2, platelets are 207. BUN and creatinine are 15 and 1.4. LFTs are normal. Cultures received on the first day, on the , when she was seen in the ER, are growing gram-negative bacilli in one bottle and one bottle with gram-positive cocci in clusters, and the blood cultures from the are growing gram-negative bacilli. IMPRESSION: In summary, this is a 68-year-old woman with cystovaginal fistula, bilateral hydronephrosis, I suspect has pyelonephritis. She has gram-negative bacteremia and also she has 1 bottle of gram-positive cocci. Will add vancomycin to the ceftriaxone. She appears improved. She had an echo which was read as a possible echodensity on her aortic valve. The murmur is not new, as she had this back when I met her in 2018. Will suggest that Cardiology be asked to evaluate her. Will repeat blood cultures as well to document clearing of her infection. SHARON LAMB M.D. [id number]
--- NOTE | 2019-05-02 19:04 | PN ---
Teaching Attending Note Name of Resident: Melvin Armendariz ATTENDING PHYSICIAN STATEMENT I saw and evaluated the patient. I reviewed the resident's note and discussed the case with the resident. I agree with the resident's findings and plan as documented. SUBJECTIVE: Patient is feeling better. no fever or chills. OBJECTIVE: Vital Signs Temperature 99.2 F 05/02/19 15:30 Pulse Rate 73 05/02/19 15:30 Respiratory Rate 18 05/02/19 15:30 Blood Pressure 158/73 05/02/19 15:30 2 Sat by Pulse Oximetry (%) 100 05/02/19 03:41 GENERAL: The patient is awake, alert, and fully oriented, in no acute distress. HEAD: Normal with no signs of trauma. EYES: PERRL, extraocular movements intact, sclera anicteric, conjunctiva clear. ENT: Ears normal, oropharynx clear without exudates, moist mucous membranes. NECK: Trachea midline, full range of motion, supple. LUNGS: Breath sounds equal, clear to auscultation bilaterally, no wheezes, no crackles, no accessory muscle use. HEART: Regular rate and rhythm, S1, S2 positive, SCOTT 3/6 right 2nd intercostal , no rub or gallop. ABDOMEN: Soft, nontender, nondistended, normoactive bowel sounds, no guarding, no rebound, no hepatosplenomegaly, no masses. EXTREMITIES: 2+ pulses, warm, well-perfused, no edema. NEUROLOGICAL: Cranial nerves II through XII grossly intact. Normal speech, gait not observed. PSYCH: Normal mood, normal affect. SKIN: Warm, dry, normal turgor, no rashes or lesions noted CBCD WBC 8.6 K/mm3 (4.0-10.0) 05/02/19 07:12 RBC 3.53 M/mm3 (3.60-5.2) L 05/02/19 07:12 Hgb 10.2 GM/dL (10.7-15.3) L 05/02/19 07:12 Hct 30.7 % (32.4-45.2) L 05/02/19 07:12 MCV 87.2 fl (80-96) 05/02/19 07:12 MCHC 33.2 g/dl (32.0-36.0) 05/02/19 07:12 RDW 15.1 % (11.6-15.6) 05/02/19 07:12 Plt Count 207 K/MM3 (134-434) 05/02/19 07:12 MPV 10.3 fl (7.5-11.1) 05/02/19 07:12 CMP Sodium 138 mmol/L (136-145) 05/02/19 07:12 Potassium 4.2 mmol/L (3.5-5.1) 05/02/19 07:12 Chloride 102 mmol/L (98-107) 05/02/19 07:12 Carbon Dioxide 29 mmol/L (21-32) 05/02/19 07:12 Anion Gap 8 MMOL/L (8-16) 05/02/19 07:12 BUN 15.1 mg/dL (7-18) 05/02/19 07:12 Creatinine 1.4 mg/dL (0.55-1.3) H 05/02/19 07:12 Random Glucose 99 mg/dL (74-106) 05/02/19 07:12 Calcium 8.5 mg/dL (8.5-10.1) 05/02/19 07:12 Total Bilirubin 1.2 mg/dL (0.2-1) H 05/02/19 07:12 AST 28 U/L (15-37) 05/02/19 07:12 ALT 30 U/L (13-61) 05/02/19 07:12 Alkaline Phosphatase 65 U/L (45-117) 05/02/19 07:12 Total Protein 6.9 g/dl (6.4-8.2) 05/02/19 07:12 Albumin 3.3 g/dl (3.4-5.0) L 05/02/19 07:12 CARDIAC ENZYMES Creatine Kinase 91 U/L (26-192) 05/01/19 16:41 Troponin I < 0.02 ng/ml (0.00-0.05) 05/01/19 16:41 Current Medications Generic Name Dose Route Start Last Admin Trade Name Freq PRN Reason Stop Dose Admin Acetaminophen 650 mg 05/01/19 20:56 05/02/19 04:39 Tylenol - PO 650 mg Q4H PRN Administration PAIN LEVEL 1-5 Heparin Sodium (Porcine) 5,000 unit 05/01/19 22:00 05/02/19 15:00 Heparin - SQ Not Given TID RICO Hydrochlorothiazide 12.5 mg 05/03/19 10:00 Hctz - PO DAILY RICO Sodium Chloride 1,000 mls @ 50 mls/hr 05/01/19 21:00 05/01/19 22:09 Normal Saline - IV 05/02/19 20:59 50 mls/hr ASDIR RICO Administration Ceftriaxone Sodium 2 gm/ 100 mls @ 200 mls/hr 05/02/19 10:00 05/02/19 11:35 Dextrose IVPB 200 mls/hr DAILY RICO Administration Protocol Losartan Potassium 100 mg 05/03/19 10:00 Losartan Potassium PO DAILY RICO Metoprolol Succinate 50 mg 05/02/19 17:00 05/02/19 18:46 Toprol Xl - PO 50 mg DAILY RICO Administration Home Medications Medication Instructions Recorded Metoprolol Succinate 50 mg PO DAILY 10/05/17 Cephalexin Monohydrate [Keflex -] 500 mg PO Q6H #28 capsule 05/01/19 Cetirizine HCl [Allergy Relief] 1 tab PO DAILY 05/02/19 Irbesartan/Hydrochlorothiazide 12.5 mg PO DAILY 05/02/19 [Irbesartan-Hctz 300-12.5 mg Tb] Microbiology 05/01/19 19:00 Blood - Peripheral Venous Blood Culture - Preliminary Pending Organism ASSESSMENT AND PLAN: Patient is a 68yo F, PMH of uterine CA, urinary incontinence with cysto- vaginal fistula, and multiple previous UTI's presented to the ER with lower abdominal ang was found to have gram negative bacteremia. #gram negative bacteremia from urinary source on IV Rocephin, possible g+ bacteremia given a dose of vancomycin # B/L Moderate hydronephrosis with hx of history of cystovaginal fistual, will get urology to see the patient. # QUESTIONable vegetation on ECHO, will need JOEL , cardio consult . given a dose of vancomycin #ARF cr of 1.4 will monitor on IVF DVT Px; HEPARIN
[2019-05-02] MEDS ORDERED: CEFTRIAXONE 1 GM in DEXTROSE 5%-WATER - 50 ML IVPB SCH (21:30)
[2019-05-03] MEDS: HEPARIN NA (PORCINE) 5,000 UNITS/ML 1ML VIAL SQ SCH ×3 (06:39→21:13)
[2019-05-03 08:29] LABS: HEMATOCRIT 31.5 % (32.4-45.2); HEMOGLOBIN 10.5 GM/dL (10.7-15.3); MCH 29.4 pg (25.7-33.7); MCHC 33.5 g/dl (32.0-36.0); MEAN PLT VOLUME 9.8 fl (7.5-11.1); PLATELET COUNT 209 K/MM3 (134-434); RBC 3.58 M/mm3 (3.60-5.2); RDW 15.1 % (11.6-15.6); WHITE BLOOD COUNT 6.4 K/mm3 (4.0-10.0)
[2019-05-03 08:56] LABS: BLOOD UREA NITROGEN 15.8 mg/dL (7-18); CALCIUM 8.9 mg/dL (8.5-10.1); CREATININE 1.3 mg/dL (0.55-1.3); POTASSIUM 4.1 mmol/L (3.5-5.1)
[2019-05-03] MEDS ORDERED: DEXTROSE 5%-WATER 100 ML IVPB ONE (10:54)
[2019-05-03] MEDS: LOSARTAN POTASSIUM 50 MG TABLET (FP) PO SCH (11:05)
[2019-05-03] MEDS: HYDROCHLOROTHIAZIDE 12.5 MG CAPSULE (FP) PO SCH (11:06)
[2019-05-03] MEDS: CEFTRIAXONE 2 GM in DEXTROSE 5%-WATER 100 ML IVPB SCH (11:07)
--- NOTE | 2019-05-03 11:13 | PN ---
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
--- NOTE | 2019-05-03 11:20 | PN ---
Physical Exam: SUBJECTIVE: Patient seen and examined by the bedside, AOx3 OBJECTIVE: Vital Signs Period Temp Pulse Resp BP Sys/Glasgow Pulse Ox Last 24 Hr 97.9 F-100.8 F 48-107 18-20 131-158/50-76 99 GENERAL: The patient is awake, alert, and fully oriented, in no acute distress. HEAD: Normal with no signs of trauma. EYES: PERRL, extraocular movements intact, sclera anicteric, conjunctiva clear. No ptosis. ENT: Ears normal, nares patent, oropharynx clear without exudates, moist mucous membranes. NECK: Trachea midline, full range of motion, supple. LUNGS: Breath sounds equal, clear to auscultation bilaterally, no wheezes, no crackles, no accessory muscle use. HEART: Regular rate and rhythm, S1, S2 with 3/6 systolic murmur on right sternal border. ABDOMEN: Soft, nontender, nondistended, no CVA tenderness EXTREMITIES: 2+ pulses, warm, well-perfused, no edema. NEUROLOGICAL: Cranial nerves II through XII grossly intact. Normal speech, gait not observed. PSYCH: Normal mood, normal affect. SKIN: Warm, dry, normal turgor, no rashes or lesions noted Laboratory Results - last 24 hr 05/03/19 05/03/19 05/03/19 07:50 07:50 07:50 WBC 6.4 RBC 3.58 L Hgb 10.5 L Hct 31.5 L MCV 88.0 MCH 29.4 MCHC 33.5 RDW 15.1 Plt Count 209 MPV 9.8 Sodium 140 Potassium 4.1 Chloride 103 Carbon Dioxide 29 Anion Gap 8 BUN 15.8 Creatinine 1.3 Est GFR (CKD-EPI)AfAm 49.16 Est GFR (CKD-EPI)NonAf 42.42 Random Glucose 90 Calcium 8.9 C-Reactive Protein 13.1 H Active Medications Generic Name Dose Route Start Last Admin Trade Name Freq PRN Reason Stop Dose Admin Acetaminophen 650 mg 05/01/19 20:56 05/02/19 21:39 Tylenol - PO 650 mg Q4H PRN Administration PAIN LEVEL 1-5 Heparin Sodium (Porcine) 5,000 unit 05/01/19 22:00 05/03/19 06:39 Heparin - SQ 5,000 unit TID RICO Administration Hydrochlorothiazide 12.5 mg 05/03/19 10:00 05/03/19 11:06 Hctz - PO 12.5 mg DAILY RICO Administration Ertapenem 1 gm/ Sodium 50 mls @ 100 mls/hr 05/03/19 11:15 Chloride IVPB DAILY RICO Losartan Potassium 100 mg 05/03/19 10:00 05/03/19 11:05 Cozaar - PO 100 mg DAILY RICO Administration Metoprolol Succinate 50 mg 05/02/19 17:00 05/03/19 11:06 Toprol Xl - PO 50 mg DAILY RICO Administration ASSESSMENT/PLAN: 68 YO F, PMH of uterine CA, 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 She presented to the ER with lower abdominal pain for the past 2 days, associated with subjective fever. She presented to the ER a day before admission, given 1gm Rocephin, Urine cx was collected and she was DC on Keflex. Urine cx was positive for gram neg in anaerobic bottle and she was asked to return for admission. #Sepsis 2/2 Pyelonephritis - Ertapenem 1gm Day 1, DC Ceftriaxone 1 gm, Vanco 1,250 mg - ID: 1 dose Vanco and repeat bllod cx, suspect pyelonephritis, ESBL Ecoli w urinary source suspected, start Ertapenem - Urology consulted: Dr. Mckinnon - Previous CT: B/L hydronephosis worse on Right, bladder thickening - UCx gram neg baci in anaerobe bottles, repeat ordered - Blood cx: Gram + cocci in clusters, repeat NG in 24h - Lactic acid 1.4 -> 1.2 #Vegetation on Echo -Possibility of aortic valve vegetation, JOEL recommended - ID: murmur is old low suspicion of endocarditis, cardio consult [facility] for echo result -JOEL ordered -Cardio (Dr. Cardenas): if Bcx do not clear with Abx therapy will plan for JOEL to further evaluate the aortic valve #Hyperbilirubinemia - Total Bili 1.6 -> 1.2 - Normal previously #Chronic Diarrhea - Due to hx of cancer tx, not currently active - Loperamide if needed Hx of HTN - Continue metoprolol 50mg #FEN - Na controlled diet #DVT ppx - Heparin SQ Visit type - Emergency Visit Emergency Visit: Yes ED Registration Date: 05/01/19 Care time: The patient presented to the Emergency Department on the above date and was hospitalized for further evaluation of their emergent condition. - New Patient This patient is new to me today: No - Critical Care Critical Care patient: No - Discharge Referral Referred to [facility] Med P.C.: No ATTENDING PHYSICIAN STATEMENT I saw and evaluated the patient. I reviewed the resident's note and discussed the case with the resident. I agree with the resident's findings and plan as documented. SUBJECTIVE: OBJECTIVE: ASSESSMENT AND PLAN:
[2019-05-03] MEDS ORDERED: PT OWN MED DRAWER 7, Y5N ONE (12:18)
[2019-05-03] MEDS: ERTAPENEM SODIUM 1 GM in SODIUM CHLORIDE 50 ML IVPB SCH (12:23)
--- NOTE | 2019-05-03 14:23 | PN ---
Teaching Attending Note Name of Resident: Melvin Armendariz ATTENDING PHYSICIAN STATEMENT I saw and evaluated the patient. I reviewed the resident's note and discussed the case with the resident. I agree with the resident's findings and plan as documented. SUBJECTIVE: Patient is feeling better with ray cute distess, no fever or chill, no shortness of breath. OBJECTIVE: Vital Signs Temperature 98.4 F 05/03/19 10:00 Pulse Rate 88 05/03/19 10:00 Respiratory Rate 18 05/03/19 10:00 Blood Pressure 155/98 05/03/19 10:00 O2 Sat by Pulse Oximetry (%) 99 05/03/19 09:00 GENERAL: The patient is awake, alert, and fully oriented, in no acute distress. HEAD: Normal with no signs of trauma. EYES: PERRL, extraocular movements intact, sclera anicteric, conjunctiva clear. ENT: Ears normal, oropharynx clear without exudates, moist mucous membranes. NECK: Trachea midline, full range of motion, supple. LUNGS: Breath sounds equal, clear to auscultation bilaterally, no wheezes, no crackles, no accessory muscle use. HEART: Regular rate and rhythm, S1, S2 positive, SCOTT 3/6 right 2nd intercostal , no rub or gallop. ABDOMEN: Soft, nontender, nondistended, normoactive bowel sounds, no guarding, no rebound, no hepatosplenomegaly, no masses. EXTREMITIES: 2+ pulses, warm, well-perfused, no edema. NEUROLOGICAL: Cranial nerves II through XII grossly intact. Normal speech, gait not observed. PSYCH: Normal mood, normal affect. SKIN: Warm, dry, normal turgor, no rashes or lesions noted CBCD WBC 6.4 K/mm3 (4.0-10.0) 05/03/19 07:50 RBC 3.58 M/mm3 (3.60-5.2) L 05/03/19 07:50 Hgb 10.5 GM/dL (10.7-15.3) L 05/03/19 07:50 Hct 31.5 % (32.4-45.2) L 05/03/19 07:50 MCV 88.0 fl (80-96) 05/03/19 07:50 MCHC 33.5 g/dl (32.0-36.0) 05/03/19 07:50 RDW 15.1 % (11.6-15.6) 05/03/19 07:50 Plt Count 209 K/MM3 (134-434) 05/03/19 07:50 MPV 9.8 fl (7.5-11.1) 05/03/19 07:50 CMP Sodium 140 mmol/L (136-145) 05/03/19 07:50 Potassium 4.1 mmol/L (3.5-5.1) 05/03/19 07:50 Chloride 103 mmol/L (98-107) 05/03/19 07:50 Carbon Dioxide 29 mmol/L (21-32) 05/03/19 07:50 Anion Gap 8 MMOL/L (8-16) 05/03/19 07:50 BUN 15.8 mg/dL (7-18) 05/03/19 07:50 Creatinine 1.3 mg/dL (0.55-1.3) 05/03/19 07:50 Random Glucose 90 mg/dL (74-106) 05/03/19 07:50 Calcium 8.9 mg/dL (8.5-10.1) 05/03/19 07:50 Total Bilirubin 1.2 mg/dL (0.2-1) H 05/02/19 07:12 AST 28 U/L (15-37) 05/02/19 07:12 ALT 30 U/L (13-61) 05/02/19 07:12 Alkaline Phosphatase 65 U/L (45-117) 05/02/19 07:12 Total Protein 6.9 g/dl (6.4-8.2) 05/02/19 07:12 Albumin 3.3 g/dl (3.4-5.0) L 05/02/19 07:12 CARDIAC ENZYMES Creatine Kinase 91 U/L (26-192) 05/01/19 16:41 Troponin I < 0.02 ng/ml (0.00-0.05) 05/01/19 16:41 Current Medications Generic Name Dose Route Start Last Admin Trade Name Freq PRN Reason Stop Dose Admin Acetaminophen 650 mg 05/01/19 20:56 05/02/19 21:39 Tylenol - PO 650 mg Q4H PRN Administration PAIN LEVEL 1-5 Heparin Sodium (Porcine) 5,000 unit 05/01/19 22:00 05/03/19 06:39 Heparin - SQ 5,000 unit TID RICO Administration Hydrochlorothiazide 12.5 mg 05/03/19 10:00 05/03/19 11:06 Hctz - PO 12.5 mg DAILY RCIO Administration Ertapenem 1 gm/ Sodium 50 mls @ 100 mls/hr 05/03/19 11:15 05/03/19 12:23 Chloride IVPB 100 mls/hr DAILY RICO Administration Losartan Potassium 100 mg 05/03/19 10:00 05/03/19 11:05 Cozaar - PO 100 mg DAILY RICO Administration Metoprolol Succinate 50 mg 05/02/19 17:00 05/03/19 11:06 Toprol Xl - PO 50 mg DAILY RICO Administration Home Medications Medication Instructions Recorded Metoprolol Succinate 50 mg PO DAILY 10/05/17 Cephalexin Monohydrate [Keflex -] 500 mg PO Q6H #28 capsule 05/01/19 Cetirizine HCl [Allergy Relief] 1 tab PO DAILY 05/02/19 Irbesartan/Hydrochlorothiazide 12.5 mg PO DAILY 05/02/19 [Irbesartan-Hctz 300-12.5 mg Tb] Microbiology 05/01/19 19:00 Blood - Peripheral Venous Blood Culture - Final Escherichia Coli 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 ASSESSMENT AND PLAN: Patient is a 68yo F, PMH of uterine CA, urinary incontinence with cysto- vaginal fistula, and multiple previous UTI's presented to the ER with lower abdominal ang was found to have gram negative bacteremia. #gram negative bacteremia from urinary source on IV Rocephin, possible g+ bacteremia given a dose of vancomycin # B/L Moderate hydronephrosis with hx of history of cystovaginal fistual, will get urology to see the patient. # QUESTIONable vegetation on ECHO, will need JOEL , cardio consult . given a dose of vancomycin #ARF cr of 1.4 will monitor on IVF DVT Px; HEPARIN
--- NOTE | 2019-05-03 15:53 | CON.CARD ---
Consult Consult Specialty:: Cardiology Referred by:: Hospitalist Reason for Consultation:: r/o endocarditis - History of Present Illness Chief Complaint: abdominal pain and fever History of Present Illness: 68 year old woman with a pmh of uterine CA, urinary incontinence and cysto- vaginal fistula with recurrent UTI's admitted with abd pain and fever and found to have ecoli urosepsis. A murmur was heard on exam and TTE was done showing calcific aortic valve disease and could not rule out a vegetation on the AV. pt was seen and examined today in [facility]. Discussed with her and her son over the phone. pt states that she saw a coverage specialist rn approximately 2 years ago and was told she had calcium on her valve but has not been seen since. She does not know the name of the coverage specialist rn. She follows with her PMD Juan Ramon Jack. She states she is feeling better. denies any chest pain, sob, palpitations. no pnd, orthopnea, or LE edema. - History Source History Provided By: Patient, Family Member Limitations to Obtaining History: Language Barrier - Past Medical History Cardio/Vascular: Yes: Aortic Stenosis, HTN Renal/: Yes: UTI - Past Surgical History Past Surgical History: Yes: Hysterectomy - Alcohol/Substance Use Hx Alcohol Use: No - Smoking History Smoking history: Former smoker Have you smoked in the past 12 months: No Aproximately how many cigarettes per day: 1 If you are a former smoker, when did you quit?: 2009 - Social History Usual Living Arrangement: With Child ADL: Independent History of Recent Travel: No Home Medications - Allergies Allergies/Adverse Reactions: Allergies Allergy/AdvReac Type Severity Reaction Status Date / Time No Known Allergies Allergy Verified 06/13/18 11:36 - Home Medications Home Medications: Ambulatory Orders Metoprolol Succinate 50 mg PO DAILY 10/05/17 Cephalexin Monohydrate [Keflex -] 500 mg PO Q6H #28 capsule 05/01/19 Cetirizine HCl [Allergy Relief] 1 tab PO DAILY 05/02/19 Irbesartan/Hydrochlorothiazide [Irbesartan-Hctz 300-12.5 mg Tb] 12.5 mg PO DAILY 05/02/19 Family Disease History - Family Disease History Family History: Denies Review of Systems - Review of Systems Constitutional: reports: Fever, Malaise. denies: No Symptoms, Chills, Diaphoresis, Lethargy, Loss of Appetite, Night Sweats, Unintentional Wgt. Loss, Weakness, Other Eyes: denies: No Symptoms, Blind Spots, Blurred Vision, Double Vision, Eye Pain , Floaters, Photophobia, Recent Change in Vision, Other HENT: denies: No Symptoms, Difficult Swallowing, Ear Discharge, Ear Pain, Epistaxis, Gingival Bleeding, Hearing Loss, Mouth Swelling, Nasal Congestion, Ocular Prosthesis, Throat Pain, Toothache, Ringing in Ears, Other Neck: denies: No Symptoms, Decreased ROM, Lumps, Pain on Movement, Stiffness, Swollen Glands, Tenderness, Other Cardiovascular: denies: No Symptoms, Chest Pain, Edema, Palpitations, Shortness of Breath, Other Respiratory: denies: No Symptoms, Cough, Exercise Intolerance, Hemoptysis, Orthopnea, PND, Snoring, SOB, SOB on Exertion, Wheezing, Other Gastrointestinal: reports: Abdominal Pain. denies: No Symptoms, Bloating, Constipation, Diarrhea, Dysphagia, Indigestion, Melena, Nausea, Rectal Bleeding , Vomiting, Vomiting Blood, Other Genitourinary: reports: Dysuria. denies: No Symptoms, Burning, Discharge, Flank Pain, Frequency, Hematuria, Incontinence, Lesions, Menses, Pain, Testicular Mass, Testicular Pain, Testicular Swelling, Urgency, Vaginal Bleeding , Other Breasts: denies: No Symptoms Reported, See HPI, Breast Implants, Discharge from Nipple, Lumps, Pain, Skin Changes, Other Musculoskeletal: denies: No Symptoms, Back Pain, Crepitus, Decreased ROM, Extremity Pain, Joint Pain, Joint Swelling, Muscle Pain, Muscle Cramps, Muscle Weakness, Other Integumentary: denies: No Symptoms, Blister, Bruising, Change in Color, Eczema, Erythema, Incision, Lesions, Lump, Pallor, Pruritis, Rash, Wound, Other Neurological: denies: No Symptoms, Change in LOC, Change in Speech, Confusion, Dizziness, Headache, Incoordination, Numbness, Parasthesia, Pre-Existing Deficit , Seizure, Syncope, Tremors, Unsteady Gait, Weakness, Other Endocrine: denies: No Symptoms, Excessive Sweating, Flushing, Increased Hunger, Increased Thirst, Intolerance to Cold, Intolerance to Heat, Unexplained Weight Gain, Unexplained Weight Loss, Other Hematology/Lymphatic: denies: No Symptoms, Easily Bruised, Excessive Bleeding, Swollen Glands, Other Psychiatric: denies: No Symptoms, Altered Sleep Pattern, Anxiety, Depression, Hallucinations, Panic, Paranoia, Suicidal, Other - Risk Factors Known Risk Factors: Yes: Hypercholesterolemia, Hypertension Vital Signs: Vital Signs Temperature 98.3 F 05/03/19 14:00 Pulse Rate 58 L 05/03/19 14:00 Respiratory Rate 18 05/03/19 14:00 Blood Pressure 132/62 05/03/19 14:00 O2 Sat by Pulse Oximetry (%) 99 05/03/19 09:00 Constitutional: Yes: No Distress, Calm Eyes: Yes: Conjunctiva Clear, EOM Intact, PERRL HENT: Yes: Atraumatic, Normocephalic Neck: Yes: Supple, Trachea Midline Respiratory: Yes: Regular, CTA Bilaterally. No: Rales, Rhonchi, SOB, Wheezes Gastrointestinal: Yes: Normal Bowel Sounds, Soft. No: Distention, Tenderness Cardiovascular: Yes: Regular Rate and Rhythm. No: Bradycardia, Tachycardia, Pulse Irregular, Gallop, Rub, Varicosities JVD: No Carotid Bruit: No PMI: Non-Displaced Heart Sounds: Yes: S1, S2. No: Split S2, S3, S4, Clicks, Gallop, Rub, Bruit Murmur: Yes: Systolic Murmur, Grade 3 Musculoskeletal: Yes: WNL Extremities: Yes: WNL Edema: No Peripheral Pulses WNL: Yes Neurological: Yes: Alert, Oriented Psychiatric: Yes: Alert, Oriented - Other Data Labs, Other Data: CBC, BMP 05/03/19 07:50 05/03/19 07:50 INR, PTT INR 1.28 (0.83-1.09) H 05/01/19 19:19 nsr 91bpm, no sig st abnl Echo: Report Reviewed, Image Reviewed Imaging - Results Chest X-ray: Report Reviewed, Image Reviewed EKG: Report Reviewed, Image Reviewed Other: Report Reviewed, Image Reviewed Assessment/Plan 68 year old woman with a pmh of uterine CA, urinary incontinence and cysto- vaginal fistula with recurrent UTI's admitted with abd pain and fever and found to have ecoli urosepsis. A murmur was heard on exam and TTE was done showing calcific aortic valve disease and could not rule out a vegetation on the AV. Discussed with her and her son over the phone. pt states that she saw a coverage specialist rn approximately 2 years ago and was told she had calcium on her valve but has not been seen since. She does not know the name of the coverage specialist rn. She follows with her PMD Juan Ramon Jack. She states she is feeling better. denies any chest pain, sob, palpitations. no pnd, orthopnea, or LE edema. R/o endocarditis -history of known murmur and known calcific valvular disease -reviewed pts echo images which are consistent with chronic calcific aortic valvular disease -there is no obvious vegetation present, due to the presence of calcium on the valve it could not be ruled out on TTE -there is a known source of her e.coli bacteremia with chronic recurrent UTI's -recommend to treat with appropriate Abx as per ID reccs -monitor BCx -if Bcx do not clear with Abx therapy will plan for JOEL to further evaluate the aortic valve Aortic stenosis- -likely moderate based on exam and Mg 27mmHg on echo -will need outpatient fup to monitor for progression of stenosis.
[2019-05-03] MEDS: ACETAMINOPHEN 325 MG TABLET (FP) PO PRN (21:15)
[2019-05-04] MEDS: HEPARIN NA (PORCINE) 5,000 UNITS/ML 1ML VIAL SQ SCH ×3 (05:49→21:10)
[2019-05-04 07:51] LABS: HEMATOCRIT 32.4 % (32.4-45.2); HEMOGLOBIN 10.8 GM/dL (10.7-15.3); MCH 29.2 pg (25.7-33.7); MCHC 33.4 g/dl (32.0-36.0); MEAN CELL VOLUME 87.5 fl (80-96); MEAN PLT VOLUME 10.1 fl (7.5-11.1); PLATELET COUNT 263 K/MM3 (134-434); WHITE BLOOD COUNT 5.5 K/mm3 (4.0-10.0)
[2019-05-04 08:10] LABS: ALBUMIN 3.4 g/dl (3.4-5.0); BILIRUBIN,TOTAL 0.5 mg/dL (0.2-1); CREATININE 1.3 mg/dL (0.55-1.3); POTASSIUM 3.6 mmol/L (3.5-5.1); TOT PROT 7.4 g/dl (6.4-8.2)
[2019-05-04] MEDS: ERTAPENEM SODIUM 1 GM in SODIUM CHLORIDE 50 ML IVPB SCH (10:11)
[2019-05-04] MEDS: HYDROCHLOROTHIAZIDE 12.5 MG CAPSULE (FP) PO SCH (10:11)
[2019-05-04] MEDS: LOSARTAN POTASSIUM 50 MG TABLET (FP) PO SCH (10:11)
--- NOTE | 2019-05-04 13:09 | CONSULT ---
Consult - text type - Consultation Consultation Note: 68 yo female w 3 days left renal colic from 11 mm ureteral calculus and hdro Pt currently comfortable and caelb po No signs of sepsis will d/c and give few days to pass Will follow in office monday or Monday
--- NOTE | 2019-05-04 19:05 | PN ---
Progress Note (short form) - Note Progress Note: Patient is feeling better with no fever or chills. Vital Signs Temperature 97.9 F 05/04/19 14:11 Pulse Rate 50 L 05/04/19 14:11 Respiratory Rate 20 05/04/19 14:11 Blood Pressure 140/53 L 05/04/19 14:11 O2 Sat by Pulse Oximetry (%) 99 05/04/19 09:00 GENERAL: The patient is awake, alert, and fully oriented, in no acute distress. HEAD: Normal with no signs of trauma. EYES: PERRL, extraocular movements intact, sclera anicteric, conjunctiva clear. ENT: Ears normal, oropharynx clear without exudates, moist mucous membranes. NECK: Trachea midline, full range of motion, supple. LUNGS: Breath sounds equal, clear to auscultation bilaterally, no wheezes, no crackles, no accessory muscle use. HEART: Regular rate and rhythm, S1, S2 positive, SCOTT 3/6 right 2nd intercostal , no rub or gallop. ABDOMEN: Soft, nontender, nondistended, normoactive bowel sounds, no guarding, no rebound, no hepatosplenomegaly, no masses. EXTREMITIES: 2+ pulses, warm, well-perfused, no edema. NEUROLOGICAL: Cranial nerves II through XII grossly intact. Normal speech, gait not observed. PSYCH: Normal mood, normal affect. SKIN: Warm, dry, normal turgor, no rashes or lesions noted CBCD WBC 5.5 K/mm3 (4.0-10.0) 05/04/19 06:15 RBC 3.70 M/mm3 (3.60-5.2) 05/04/19 06:15 Hgb 10.8 GM/dL (10.7-15.3) 05/04/19 06:15 Hct 32.4 % (32.4-45.2) 05/04/19 06:15 MCV 87.5 fl (80-96) 05/04/19 06:15 MCHC 33.4 g/dl (32.0-36.0) 05/04/19 06:15 RDW 15.0 % (11.6-15.6) 05/04/19 06:15 Plt Count 263 K/MM3 (134-434) D 05/04/19 06:15 MPV 10.1 fl (7.5-11.1) 05/04/19 06:15 CMP Sodium 140 mmol/L (136-145) 05/04/19 06:15 Potassium 3.6 mmol/L (3.5-5.1) 05/04/19 06:15 Chloride 102 mmol/L (98-107) 05/04/19 06:15 Carbon Dioxide 29 mmol/L (21-32) 05/04/19 06:15 Anion Gap 9 MMOL/L (8-16) 05/04/19 06:15 BUN 23.0 mg/dL (7-18) H 05/04/19 06:15 Creatinine 1.3 mg/dL (0.55-1.3) 05/04/19 06:15 Random Glucose 81 mg/dL (74-106) 05/04/19 06:15 Calcium 9.0 mg/dL (8.5-10.1) 05/04/19 06:15 Total Bilirubin 0.5 mg/dL (0.2-1) 05/04/19 06:15 AST 23 U/L (15-37) 05/04/19 06:15 ALT 28 U/L (13-61) 05/04/19 06:15 Alkaline Phosphatase 65 U/L (45-117) 05/04/19 06:15 Total Protein 7.4 g/dl (6.4-8.2) 05/04/19 06:15 Albumin 3.4 g/dl (3.4-5.0) 05/04/19 06:15 CARDIAC ENZYMES Creatine Kinase 91 U/L (26-192) 05/01/19 16:41 Troponin I < 0.02 ng/ml (0.00-0.05) 05/01/19 16:41 Current Medications Generic Name Dose Route Start Last Admin Trade Name Freq PRN Reason Stop Dose Admin Acetaminophen 650 mg 05/01/19 20:56 05/03/19 21:15 Tylenol - PO 650 mg Q4H PRN Administration PAIN LEVEL 1-5 Heparin Sodium (Porcine) 5,000 unit 05/01/19 22:00 05/04/19 14:55 Heparin - SQ 5,000 unit TID RICO Administration Hydrochlorothiazide 12.5 mg 05/03/19 10:00 05/04/19 10:11 Hctz - PO 12.5 mg DAILY RICO Administration Ertapenem 1 gm/ Sodium 50 mls @ 100 mls/hr 05/03/19 11:15 05/04/19 10:11 Chloride IVPB 100 mls/hr DAILY RICO Administration Losartan Potassium 100 mg 05/03/19 10:00 05/04/19 10:11 Cozaar - PO 100 mg DAILY RICO Administration Metoprolol Succinate 50 mg 05/02/19 17:00 05/04/19 10:11 Toprol Xl - PO 50 mg DAILY RICO Administration Home Medications Medication Instructions Recorded Metoprolol Succinate 50 mg PO DAILY 10/05/17 Cephalexin Monohydrate [Keflex -] 500 mg PO Q6H #28 capsule 05/01/19 Cetirizine HCl [Allergy Relief] 1 tab PO DAILY 05/02/19 Irbesartan/Hydrochlorothiazide 12.5 mg PO DAILY 05/02/19 [Irbesartan-Hctz 300-12.5 mg Tb] 05/01/19 19:00 Blood - Peripheral Venous Blood Culture - Final Escherichia Coli Esbl Housing Inspector 05/01/19 19:19 Blood - Peripheral Venous Blood Culture - Preliminary NO GROWTH OBTAINED AFTER 48 HOURS, INCUBATION TO CONTINUE FOR 3 DAYS. ASSESSMENT AND PLAN: Patient is a 68yo F, PMH of uterine CA, urinary incontinence with cysto- vaginal fistula, and multiple previous UTI's presented to the ER with lower abdominal pain and was found to have gram negative bacteremia. #gram negative bacteremia (ESBL) from urinary source on IV Ertapenem s/p Rocephin, possible g+ bacteremia given a dose of vancomycin given # B/L Moderate hydronephrosis with hx of history of cystovaginal fistual, will get urology to see the patient. # QUESTIONable vegetation on ECHO, will need JOEL , cardio consult . given a dose of vancomycin #ARF cr of 1.4-->1.3 today will monitor on IVF DVT Px; HEPARIN -As per uro to follow up in the office for 11 mm ureteral calculus and hdro -As pe cardio: -if Bcx do not clear with Abx therapy ; plan for JOEL to further evaluate the aortic valve since patient has history of known murmur and known calcific valvular disease. -echo images reviewed by dr Mirza , in conclusion consistent with chronic calcific aortic valvular disease -there is no obvious vegetation present, due to the presence of calcium on the valve it could not be ruled out on TTE -recommend to treat with appropriate Abx as per ID reccs, monitor bcx Visit type - Emergency Visit Emergency Visit: Yes ED Registration Date: 05/01/19 Care time: The patient presented to the Emergency Department on the above date and was hospitalized for further evaluation of their emergent condition. - New Patient This patient is new to me today: No - Critical Care Critical Care patient: No - Discharge Referral Referred to [facility] Med P.C.: No
[2019-05-05] MEDS: HEPARIN NA (PORCINE) 5,000 UNITS/ML 1ML VIAL SQ SCH ×3 (06:02→21:40)
[2019-05-05 08:47] LABS: BASO % 0.5 % (0-2.0); EOS % 3.6 % (0-4.5); HEMATOCRIT 32.3 % (32.4-45.2); HEMOGLOBIN 10.5 GM/dL (10.7-15.3); LYMPH % 47.7 % (8-40); MCH 28.8 pg (25.7-33.7); MCHC 32.7 g/dl (32.0-36.0); MEAN CELL VOLUME 88.2 fl (80-96); MEAN PLT VOLUME 9.6 fl (7.5-11.1); MONO % 11.4 % (3.8-10.2); NEUT % 36.8 % (42.8-82.8); PLATELET COUNT 273 K/MM3 (134-434); RBC 3.66 M/mm3 (3.60-5.2); RDW 14.9 % (11.6-15.6); WHITE BLOOD COUNT 5.9 K/mm3 (4.0-10.0)
[2019-05-05 09:31] LABS: ALBUMIN 3.4 g/dl (3.4-5.0); BILIRUBIN,TOTAL 0.4 mg/dL (0.2-1); BLOOD UREA NITROGEN 25.3 mg/dL (7-18); CALCIUM 9.2 mg/dL (8.5-10.1); CREATININE 1.3 mg/dL (0.55-1.3); POTASSIUM 4.1 mmol/L (3.5-5.1); TOT PROT 7.1 g/dl (6.4-8.2)
[2019-05-05] MEDS: LOSARTAN POTASSIUM 50 MG TABLET (FP) PO SCH (09:36)
[2019-05-05] MEDS: HYDROCHLOROTHIAZIDE 12.5 MG CAPSULE (FP) PO SCH (09:36)
[2019-05-05] MEDS: ERTAPENEM SODIUM 1 GM in SODIUM CHLORIDE 50 ML IVPB SCH (09:36)
--- NOTE | 2019-05-05 10:50 | PN ---
Physical Exam: SUBJECTIVE: Patient seen and examined at bedside. No acute events overnight. Pt has mild L side pain, but feels much better. Denies fever, chills, nausea/ vomiting, urinary/bowel symptoms. OBJECTIVE: Vital Signs Temperature 97.8 F 05/05/19 06:41 Pulse Rate 57 L 05/05/19 06:41 Respiratory Rate 20 05/05/19 06:41 Blood Pressure 120/50 L 05/05/19 06:41 O2 Sat by Pulse Oximetry (%) 99 05/04/19 21:00 GENERAL: Pleasant, well-appearing Estonian-speaking female. NAD. Resting comfortably in bed. HEENT: AT/NC. EOMI. Moist mucus membranes. NECK: Trachea midline, full range of motion, supple. LUNGS: CTA B/L. No wheezes, rhonchi rales noted. HEART: Regular rate and rhythm, S1, S2 with 3/6 systolic murmur on right sternal border. ABDOMEN: Soft, NT/ND. Normoactive bowel sounds noted. EXTREMITIES: 2+ pulses, warm, well-perfused, no edema. NEUROLOGICAL: Cranial nerves II through XII grossly intact. Normal speech, gait not observed. PSYCH: Normal mood, normal affect. SKIN: Warm, dry, normal turgor, no rashes or lesions noted CBCD WBC 5.9 K/mm3 (4.0-10.0) 05/05/19 07:11 RBC 3.66 M/mm3 (3.60-5.2) 05/05/19 07:11 Hgb 10.5 GM/dL (10.7-15.3) L 05/05/19 07:11 Hct 32.3 % (32.4-45.2) L 05/05/19 07:11 MCV 88.2 fl (80-96) 05/05/19 07:11 MCHC 32.7 g/dl (32.0-36.0) 05/05/19 07:11 RDW 14.9 % (11.6-15.6) 05/05/19 07:11 Plt Count 273 K/MM3 (134-434) 05/05/19 07:11 MPV 9.6 fl (7.5-11.1) 05/05/19 07:11 CMP Sodium 141 mmol/L (136-145) 05/05/19 07:11 Potassium 4.1 mmol/L (3.5-5.1) 05/05/19 07:11 Chloride 105 mmol/L (98-107) 05/05/19 07:11 Carbon Dioxide 28 mmol/L (21-32) 05/05/19 07:11 Anion Gap 8 MMOL/L (8-16) 05/05/19 07:11 BUN 25.3 mg/dL (7-18) H 05/05/19 07:11 Creatinine 1.3 mg/dL (0.55-1.3) 05/05/19 07:11 Calcium 9.2 mg/dL (8.5-10.1) 05/05/19 07:11 Total Bilirubin 0.4 mg/dL (0.2-1) 05/05/19 07:11 AST 21 U/L (15-37) 05/05/19 07:11 ALT 27 U/L (13-61) 05/05/19 07:11 Alkaline Phosphatase 63 U/L (45-117) 05/05/19 07:11 Total Protein 7.1 g/dl (6.4-8.2) 05/05/19 07:11 Albumin 3.4 g/dl (3.4-5.0) 05/05/19 07:11 Active Medications Acetaminophen (Tylenol -) 650 mg PO Q4H PRN PRN Reason: PAIN LEVEL 1-5 Last Admin: 05/03/19 21:15 Dose: 650 mg Heparin Sodium (Porcine) (Heparin -) 5,000 unit SQ TID [facility] Last Admin: 05/05/19 06:02 Dose: 5,000 unit Hydrochlorothiazide (Hctz -) 12.5 mg PO DAILY [facility] Last Admin: 05/05/19 09:36 Dose: 12.5 mg Ertapenem 1 gm/ Sodium (Chloride) 50 mls @ 100 mls/hr IVPB DAILY [facility] Last Admin: 05/05/19 09:36 Dose: 100 mls/hr Losartan Potassium (Cozaar -) 100 mg PO DAILY [facility] Last Admin: 05/05/19 09:36 Dose: 100 mg Metoprolol Succinate (Toprol Xl -) 50 mg PO DAILY [facility] Last Admin: 05/05/19 09:36 Dose: 50 mg ASSESSMENT/PLAN: 68 YO F, PMH of uterine CA, 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 Coli ESBL UTI. #Sepsis 2/2 Pyelonephritis; Stable, pt no longer septic. -UCx +E. coli ESBL pending c/s; Repeat BCx neg x24h -Previous CT: B/L hydronephosis worse on Right, bladder thickening -Cont Ertapenem 1gm Day 3, (previously given IV Ceftriaxone 1 gm, Vanco 1,250 mg ); await further ID recs -Per uro, conservative management w/ outpatient follow up -Tylenol 650 Q4H PRN for pain -WBC remains wnl, pt afebrile #Echodensity finding on echo; r/o endocarditis -Per cardio, echodensity c/w chronic aortic valvular disease with no obvious vegetation present. If BCx not cleared with IV abx, then will consider JOEL for further evaluation. #Aortic Stenosis; moderate stenosis -Will need outpatient follow up #Hyperbilirubinemia; Resolved. #Chronic Diarrhea -Due to hx of cancer tx, not currently active -Loperamide if needed #HTN Continue home meds: Metoprolol 50 mg QD, Losartan 100 QD, HCTZ 12.5 QD #FEN -PO hydration -recheck lytes in AM -Na controlled diet #Prophylaxis DVT: Heparin SQ Dispo -Cont to monitor on med-surg Visit type - Emergency Visit Emergency Visit: Yes ED Registration Date: 05/01/19 Care time: The patient presented to the Emergency Department on the above date and was hospitalized for further evaluation of their emergent condition. - New Patient This patient is new to me today: No - Critical Care Critical Care patient: No ATTENDING PHYSICIAN STATEMENT I saw and evaluated the patient. I reviewed the resident's note and discussed the case with the resident. I agree with the resident's findings and plan as documented. SUBJECTIVE: OBJECTIVE: ASSESSMENT AND PLAN:
--- NOTE | 2019-05-05 11:42 | PN ---
Teaching Attending Note Name of Resident: Kristi Tejeda ATTENDING PHYSICIAN STATEMENT I saw and evaluated the patient. I reviewed the resident's note and discussed the case with the resident. I agree with the resident's findings and plan as documented. SUBJECTIVE: Patient is comfortable with no acute distress, no nausea or vomiting, no fever or chills. OBJECTIVE: Vital Signs Temperature 97.8 F 05/05/19 06:41 Pulse Rate 57 L 05/05/19 06:41 Respiratory Rate 20 05/05/19 06:41 Blood Pressure 120/50 L 05/05/19 06:41 O2 Sat by Pulse Oximetry (%) 99 05/04/19 21:00 GENERAL: The patient is awake, alert, and fully oriented, in no acute distress. HEAD: Normal with no signs of trauma. EYES: PERRL, extraocular movements intact, sclera anicteric, conjunctiva clear. ENT: Ears normal, oropharynx clear without exudates, moist mucous membranes. NECK: Trachea midline, full range of motion, supple. LUNGS: Breath sounds equal, clear to auscultation bilaterally, no wheezes, no crackles, no accessory muscle use. HEART: Regular rate and rhythm, S1, S2 positive, SCOTT 3/6 right 2nd intercostal , no rub or gallop. ABDOMEN: Soft, nontender, nondistended, normoactive bowel sounds, no guarding, no rebound, no hepatosplenomegaly, no masses. EXTREMITIES: 2+ pulses, warm, well-perfused, no edema. NEUROLOGICAL: Cranial nerves II through XII grossly intact. Normal speech, gait not observed. PSYCH: Normal mood, normal affect. SKIN: Warm, dry, normal turgor, no rashes or lesions noted CBCD WBC 5.9 K/mm3 (4.0-10.0) 05/05/19 07:11 RBC 3.66 M/mm3 (3.60-5.2) 05/05/19 07:11 Hgb 10.5 GM/dL (10.7-15.3) L 05/05/19 07:11 Hct 32.3 % (32.4-45.2) L 05/05/19 07:11 MCV 88.2 fl (80-96) 05/05/19 07:11 MCHC 32.7 g/dl (32.0-36.0) 05/05/19 07:11 RDW 14.9 % (11.6-15.6) 05/05/19 07:11 Plt Count 273 K/MM3 (134-434) 05/05/19 07:11 MPV 9.6 fl (7.5-11.1) 05/05/19 07:11 CMP Sodium 141 mmol/L (136-145) 05/05/19 07:11 Potassium 4.1 mmol/L (3.5-5.1) 05/05/19 07:11 Chloride 105 mmol/L (98-107) 05/05/19 07:11 Carbon Dioxide 28 mmol/L (21-32) 05/05/19 07:11 Anion Gap 8 MMOL/L (8-16) 05/05/19 07:11 BUN 25.3 mg/dL (7-18) H 05/05/19 07:11 Creatinine 1.3 mg/dL (0.55-1.3) 05/05/19 07:11 Random Glucose 79 mg/dL (74-106) 05/05/19 07:11 Calcium 9.2 mg/dL (8.5-10.1) 05/05/19 07:11 Total Bilirubin 0.4 mg/dL (0.2-1) 05/05/19 07:11 AST 21 U/L (15-37) 05/05/19 07:11 ALT 27 U/L (13-61) 05/05/19 07:11 Alkaline Phosphatase 63 U/L (45-117) 05/05/19 07:11 Total Protein 7.1 g/dl (6.4-8.2) 05/05/19 07:11 Albumin 3.4 g/dl (3.4-5.0) 05/05/19 07:11 CARDIAC ENZYMES Creatine Kinase 91 U/L (26-192) 05/01/19 16:41 Troponin I < 0.02 ng/ml (0.00-0.05) 05/01/19 16:41 Current Medications Generic Name Dose Route Start Last Admin Trade Name Freq PRN Reason Stop Dose Admin Acetaminophen 650 mg 05/01/19 20:56 05/03/19 21:15 Tylenol - PO 650 mg Q4H PRN Administration PAIN LEVEL 1-5 Heparin Sodium (Porcine) 5,000 unit 05/01/19 22:00 05/05/19 06:02 Heparin - SQ 5,000 unit TID [facility] Administration Hydrochlorothiazide 12.5 mg 05/03/19 10:00 05/05/19 09:36 Hctz - PO 12.5 mg DAILY [facility] Administration Ertapenem 1 gm/ Sodium 50 mls @ 100 mls/hr 05/03/19 11:15 05/05/19 09:36 Chloride IVPB 100 mls/hr DAILY [facility] Administration Losartan Potassium 100 mg 05/03/19 10:00 05/05/19 09:36 Cozaar - PO 100 mg DAILY [facility] Administration Metoprolol Succinate 50 mg 05/02/19 17:00 05/05/19 09:36 Toprol Xl - PO 50 mg DAILY [facility] Administration Home Medications Medication Instructions Recorded Metoprolol Succinate 50 mg PO DAILY 10/05/17 Cephalexin Monohydrate [Keflex -] 500 mg PO Q6H #28 capsule 05/01/19 Cetirizine HCl [Allergy Relief] 1 tab PO DAILY 05/02/19 Irbesartan/Hydrochlorothiazide 12.5 mg PO DAILY 05/02/19 [Irbesartan-Hctz 300-12.5 mg Tb] Microbiology 05/04/19 06:15 Blood - Peripheral Venous Blood Culture - Preliminary NO GROWTH OBTAINED AFTER 24 HOURS, INCUBATION TO CONTINUE FOR 4 DAYS. 05/04/19 06:30 Blood - Peripheral Venous Blood Culture - Preliminary NO GROWTH OBTAINED AFTER 24 HOURS, INCUBATION TO CONTINUE FOR 4 DAYS. 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 ASSESSMENT AND PLAN: Patient is a 68yo F, PMH of uterine CA, urinary incontinence with cysto- vaginal fistula, and multiple previous UTI's presented to the ER with lower abdominal pain and was found to have gram negative bacteremia. #gram negative bacteremia (ESBL) from urinary source on IV Ertapenem s/p Rocephin. if no further work up needed, possible PICC line to continue treatment as an outpatient. check with ID and and urology in am - s/p possible g+ bacteremia given a dose of vancomycin given earlier on the admission. # B/L Moderate hydronephrosis with hx of history of cystovaginal fistual, will get urology to see the patient. # QUESTIONable vegetation on ECHO, will need JOEL , cardio consult . given a dose of vancomycin #ARF cr of 1.4-->1.3 today will monitor on IVF DVT Px; HEPARIN -As per uro to follow up in the office for 11 mm ureteral calculus and hdro -As pe cardio: -if Bcx do not clear with Abx therapy ; plan for JOEL to further evaluate the aortic valve since patient has history of known murmur and known calcific valvular disease. -echo images reviewed by dr Mirza , in conclusion consistent with chronic calcific aortic valvular disease -there is no obvious vegetation present, due to the presence of calcium on the valve it could not be ruled out on TTE -recommend to treat with appropriate Abx as per ID reccs, monitor bcx
[2019-05-06] MEDS: HEPARIN NA (PORCINE) 5,000 UNITS/ML 1ML VIAL SQ SCH ×3 (06:11→21:13)
[2019-05-06] MEDS ORDERED: PT OWN MED DRAWER 7, Y5N ONE (06:27)
[2019-05-06 07:13] LABS: BLOOD UREA NITROGEN 24.1 mg/dL (7-18); CALCIUM 8.8 mg/dL (8.5-10.1); CREATININE 1.3 mg/dL (0.55-1.3); POTASSIUM 4.2 mmol/L (3.5-5.1)
[2019-05-06 07:26] LABS: HEMATOCRIT 31.1 % (32.4-45.2); HEMOGLOBIN 10.3 GM/dL (10.7-15.3); MCH 29.2 pg (25.7-33.7); MCHC 33.2 g/dl (32.0-36.0); MEAN CELL VOLUME 87.9 fl (80-96); MEAN PLT VOLUME 9.7 fl (7.5-11.1); PLATELET COUNT 271 K/MM3 (134-434); RBC 3.54 M/mm3 (3.60-5.2); RDW 14.8 % (11.6-15.6)
[2019-05-06] MEDS: LOSARTAN POTASSIUM 50 MG TABLET (FP) PO SCH (10:50)
[2019-05-06] MEDS: ERTAPENEM SODIUM 1 GM in SODIUM CHLORIDE 50 ML IVPB SCH (10:50)
[2019-05-06] MEDS: HYDROCHLOROTHIAZIDE 12.5 MG CAPSULE (FP) PO SCH (10:50)
--- NOTE | 2019-05-06 11:07 | PN ---
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 05/04/19 06:30 Blood - Peripheral Venous Blood Culture - Preliminary NO GROWTH OBTAINED AFTER 48 HOURS, INCUBATION TO CONTINUE FOR 3 DAYS. 05/01/19 19:19 Blood - Peripheral Venous Blood Culture - Preliminary NO GROWTH OBTAINED AFTER 96 HOURS, INCUBATION TO CONTINUE FOR 1 DAYS. 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/reccd ecoli esbl bacteremia suspected urinary source-ertapenem, contact isolation, repeat blood cultures- abnl ct scan with hydro- history of cystovaginal fistual gram positive bacteremia!-coag neg staph one bottle- contaminant abnl echo- has a murmur (present 2017 when I saw her then)-unlikely endocarditis but abnl echo suggest d/w cardiology low clinical suspicion for endocarditis would plan for 2 weeks iv ertapenem now day #4 unable to reach urology -dr sanchez to discuss- would suggest he be made aware of bacteremia and prior medical history-there is no mention of renal stone in the ct scan performed on 04/30 repeat blood cultures are negative will need cardiology f/u and repeat echo as outpt- d/w hospitalist
--- NOTE | 2019-05-06 15:13 | PN ---
Progress Note, Physician Chief Complaint: Appears comfortable History of Present Illness: This is a 68 year old woman with a pmh of uterine CA, urinary incontinence and cysto-vaginal fistula with recurrent UTI's. She was admitted with abdominal pain and fever and found to have ecoli urosepsis. She has a systolic ejection mumur and has a calcified aortic valve on TTE. On ABX currently, Afebrile and the last 2 blood cultures show no growth to date. - Current Medication List Current Medications: Active Medications Acetaminophen (Tylenol -) 650 mg PO Q4H PRN PRN Reason: PAIN LEVEL 1-5 Last Admin: 05/03/19 21:15 Dose: 650 mg Heparin Sodium (Porcine) (Heparin -) 5,000 unit SQ TID [facility] Last Admin: 05/06/19 14:51 Dose: 5,000 unit Hydrochlorothiazide (Hctz -) 12.5 mg PO DAILY [facility] Last Admin: 05/06/19 10:50 Dose: 12.5 mg Ertapenem 1 gm/ Sodium (Chloride) 50 mls @ 100 mls/hr IVPB DAILY [facility] Last Admin: 05/06/19 10:50 Dose: 100 mls/hr Losartan Potassium (Cozaar -) 100 mg PO DAILY [facility] Last Admin: 05/06/19 10:50 Dose: 100 mg Metoprolol Succinate (Toprol Xl -) 50 mg PO DAILY [facility] Last Admin: 05/06/19 10:50 Dose: 50 mg - Objective Vital Signs: Vital Signs Temperature 97.7 F 05/06/19 06:00 Pulse Rate 57 L 05/06/19 06:00 Respiratory Rate 20 05/06/19 06:00 Blood Pressure 119/50 L 05/06/19 06:00 O2 Sat by Pulse Oximetry (%) 99 05/05/19 21:00 Constitutional: Yes: No Distress Eyes: Yes: WNL HENT: Yes: WNL Neck: Yes: WNL Cardiovascular: Yes: Regular Rate and Rhythm, Murmur (Systolic ejection murmur 2 /6), S1, S2 Respiratory: Yes: CTA Bilaterally Gastrointestinal: Yes: Normal Bowel Sounds, Soft Extremities: Yes: WNL Edema: No Neurological: Yes: Alert, Oriented Labs: CBC, BMP 05/06/19 05:46 05/06/19 05:46 INR, PTT INR 1.28 (0.83-1.09) H 05/01/19 19:19 Assessment/Plan 68 year old woman with a pmh of uterine CA, urinary incontinence and cysto- vaginal fistula with recurrent UTI's. She was admitted with abdominal pain and fever and found to have ecoli urosepsis. She has a systolic ejection mumur and has a calcified aortic valve on TTE. On ABX currently, Afebrile and the last 2 blood cultures show no growth to date. R/o endocarditis Would follow clinically, if the patient spikes a fever and/or has evidence of embolic phenomenon, then would consider a JOEL. Aortic stenosis- -likely moderate based on exam and Mg 27mmHg on echo -will need outpatient fup to monitor for progression of stenosis.
--- NOTE | 2019-05-06 15:15 | PN ---
Teaching Attending Note Name of Resident: Melvin Armendariz ATTENDING PHYSICIAN STATEMENT I saw and evaluated the patient. I reviewed the resident's note and discussed the case with the resident. I agree with the resident's findings and plan as documented. SUBJECTIVE: Patient has no complaints. OBJECTIVE: Vital Signs Period Temp Pulse Resp BP Sys/Glasgow Pulse Ox Last 24 Hr 97.7 F-98.4 F 57-85 20-20 119-127/50-65 99 HEART: S1S2, RRR LUNGS: Clear ABDOMEN: Soft, non-tender, non-distended, normal BS EXTREMITIES: No edema Laboratory Results - last 24 hr 05/06/19 05/06/19 05:46 05:46 WBC 6.0 RBC 3.54 L Hgb 10.3 L Hct 31.1 L MCV 87.9 MCH 29.2 MCHC 33.2 RDW 14.8 Plt Count 271 MPV 9.7 Sodium 139 Potassium 4.2 Chloride 104 Carbon Dioxide 28 Anion Gap 7 L BUN 24.1 H Creatinine 1.3 Est GFR (CKD-EPI)AfAm 49.16 Est GFR (CKD-EPI)NonAf 42.42 Random Glucose 85 Calcium 8.8 C-Reactive Protein 2.7 H Current Medications Generic Name Dose Route Start Last Admin Trade Name Freq PRN Reason Stop Dose Admin Acetaminophen 650 mg 05/01/19 20:56 05/03/19 21:15 Tylenol - PO 650 mg Q4H PRN Administration PAIN LEVEL 1-5 Heparin Sodium (Porcine) 5,000 unit 05/01/19 22:00 05/06/19 06:11 Heparin - SQ 5,000 unit TID [facility] Administration Hydrochlorothiazide 12.5 mg 05/03/19 10:00 05/06/19 10:50 Hctz - PO 12.5 mg DAILY [facility] Administration Ertapenem 1 gm/ Sodium 50 mls @ 100 mls/hr 05/03/19 11:15 05/06/19 10:50 Chloride IVPB 100 mls/hr DAILY [facility] Administration Losartan Potassium 100 mg 05/03/19 10:00 05/06/19 10:50 Cozaar - PO 100 mg DAILY [facility] Administration Metoprolol Succinate 50 mg 05/02/19 17:00 05/06/19 10:50 Toprol Xl - PO 50 mg DAILY [facility] Administration ASSESSMENT AND PLAN: This is a 68 year old woman with a history of HTN, uterine cancer, cysto- vaginal fistula, urinary incontinence, and recurrent UTIs who presented to the ED with fever and lower abdominal pain. 1. Sepsis secondary to acute pyelonephritis with ESBL E. coli bacteremia, bilateral hydronephrosis - Sepsis resolved - Continue ertapenem x 2 weeks - Urology follow-up 2. Calcific aortic valve disease - No obvious vegetation, unlikely to be endocarditis 3. Moderate aortic stenosis - Outpatient follow-up 4. Hyperbilirubinemia - Resolved 5. Diarrhea, chronic 6. HTN - Continue Cozaar, Toprol XL, HCTZ
--- NOTE | 2019-05-06 18:06 | PN ---
Physical Exam: SUBJECTIVE: Patient seen and examined by the bedside, AOx3 OBJECTIVE: Vital Signs Period Temp Pulse Resp BP Sys/Glasgow Pulse Ox Last 24 Hr 97.7 F-98.4 F 57-82 20-20 119-127/50-62 98-99 GENERAL: The patient is awake, alert, and fully oriented, in no acute distress. HEAD: Normal with no signs of trauma. EYES: PERRL, extraocular movements intact, sclera anicteric, conjunctiva clear. No ptosis. ENT: Ears normal, nares patent, oropharynx clear without exudates, moist mucous membranes. NECK: Trachea midline, full range of motion, supple. LUNGS: Breath sounds equal, clear to auscultation bilaterally, no wheezes, no crackles, no accessory muscle use. HEART: Regular rate and rhythm, S1, S2 with 3/6 systolic murmur on right sternal border. ABDOMEN: Soft, nontender, nondistended, no CVA tenderness EXTREMITIES: 2+ pulses, warm, well-perfused, no edema. NEUROLOGICAL: Cranial nerves II through XII grossly intact. Normal speech, gait not observed. PSYCH: Normal mood, normal affect. SKIN: Warm, dry, normal turgor, no rashes or lesions noted Laboratory Results - last 24 hr 05/06/19 05/06/19 05:46 05:46 WBC 6.0 RBC 3.54 L Hgb 10.3 L Hct 31.1 L MCV 87.9 MCH 29.2 MCHC 33.2 RDW 14.8 Plt Count 271 MPV 9.7 Sodium 139 Potassium 4.2 Chloride 104 Carbon Dioxide 28 Anion Gap 7 L BUN 24.1 H Creatinine 1.3 Est GFR (CKD-EPI)AfAm 49.16 Est GFR (CKD-EPI)NonAf 42.42 Random Glucose 85 Calcium 8.8 C-Reactive Protein 2.7 H Active Medications Generic Name Dose Route Start Last Admin Trade Name Freq PRN Reason Stop Dose Admin Acetaminophen 650 mg 05/01/19 20:56 05/03/19 21:15 Tylenol - PO 650 mg Q4H PRN Administration PAIN LEVEL 1-5 Heparin Sodium (Porcine) 5,000 unit 05/01/19 22:00 05/06/19 14:51 Heparin - SQ 5,000 unit TID [facility] Administration Hydrochlorothiazide 12.5 mg 05/03/19 10:00 05/06/19 10:50 Hctz - PO 12.5 mg DAILY [facility] Administration Ertapenem 1 gm/ Sodium 50 mls @ 100 mls/hr 05/03/19 11:15 05/06/19 10:50 Chloride IVPB 100 mls/hr DAILY [facility] Administration Losartan Potassium 100 mg 05/03/19 10:00 05/06/19 10:50 Cozaar - PO 100 mg DAILY [facility] Administration Metoprolol Succinate 50 mg 05/02/19 17:00 05/06/19 10:50 Toprol Xl - PO 50 mg DAILY [facility] Administration ASSESSMENT/PLAN: 68 YO F, PMH of uterine CA, 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 She presented to the ER with lower abdominal pain for the past 2 days, associated with subjective fever. She presented to the ER a day before admission, given 1gm Rocephin, Urine cx was collected and she was DC on Keflex. Urine cx was positive for gram neg in anaerobic bottle and she was asked to return for admission. #Sepsis 2/2 Pyelonephritis - ID: Ertapenem 1gm Day 4 of 2 week course, DC Ceftriaxone 1 gm, Vanco 1,250 mg - Urology consulted: Dr. Mckinnon - Previous CT: B/L hydronephosis worse on Right, bladder thickening - UCx gram neg baci in anaerobe bottles, repeat ordered - Blood cx: Repeat shows NG in 48H, E Coli ESBL - Lactic acid 1.4 -> 1.2 #Vegetation on Echo - ID: murmur is old low suspicion of endocarditis -Cardio: Oupatient FU for , low suspicion of endocarditis #Hyperbilirubinemia - Total Bili 1.6 -> 1.2 -> 0.5 -> 0.4 - Normal previously #Chronic Diarrhea - Due to hx of cancer tx, not currently active - Loperamide if needed Hx of HTN - Continue metoprolol 50mg #FEN - Na controlled diet #DVT ppx - Heparin SQ Visit type - Emergency Visit Emergency Visit: Yes ED Registration Date: 05/01/19 Care time: The patient presented to the Emergency Department on the above date and was hospitalized for further evaluation of their emergent condition. - New Patient This patient is new to me today: No - Critical Care Critical Care patient: No - Discharge Referral Referred to [facility] No ATTENDING PHYSICIAN STATEMENT I saw and evaluated the patient. I reviewed the resident's note and discussed the case with the resident. I agree with the resident's findings and plan as documented. SUBJECTIVE: OBJECTIVE: ASSESSMENT AND PLAN:
[2019-05-07] MEDS: HEPARIN NA (PORCINE) 5,000 UNITS/ML 1ML VIAL SQ SCH ×3 (06:03→21:16)
[2019-05-07 07:54] LABS: HEMATOCRIT 32.3 % (32.4-45.2); HEMOGLOBIN 10.8 GM/dL (10.7-15.3); MCH 29.3 pg (25.7-33.7); MCHC 33.3 g/dl (32.0-36.0); MEAN CELL VOLUME 88.1 fl (80-96); MEAN PLT VOLUME 10.1 fl (7.5-11.1); PLATELET COUNT 309 K/MM3 (134-434); RBC 3.67 M/mm3 (3.60-5.2); RDW 14.6 % (11.6-15.6); WHITE BLOOD COUNT 7.1 K/mm3 (4.0-10.0)
[2019-05-07 07:57] LABS: BLOOD UREA NITROGEN 25.1 mg/dL (7-18); CALCIUM 9.3 mg/dL (8.5-10.1); CREATININE 1.3 mg/dL (0.55-1.3); POTASSIUM 4.1 mmol/L (3.5-5.1)
[2019-05-07] MEDS: HYDROCHLOROTHIAZIDE 12.5 MG CAPSULE (FP) PO SCH (10:45)
[2019-05-07] MEDS: LOSARTAN POTASSIUM 50 MG TABLET (FP) PO SCH (10:45)
[2019-05-07] MEDS: ERTAPENEM SODIUM 1 GM in SODIUM CHLORIDE 50 ML IVPB SCH (10:45)
--- NOTE | 2019-05-07 15:52 | PN ---
Teaching Attending Note Name of Resident: Melvin Armendariz ATTENDING PHYSICIAN STATEMENT I saw and evaluated the patient. I reviewed the resident's note and discussed the case with the resident. I agree with the resident's findings and plan as documented. SUBJECTIVE: patient feels well. OBJECTIVE: Vital Signs Period Temp Pulse Resp BP Sys/Glasgow Pulse Ox Last 24 Hr 97.8 F-98.4 F 51-60 18-20 97-133/51-62 98 HEART: S1S2, RRR LUNGS: Clear ABDOMEN: Soft, non-tender, non-distended, normal BS EXTREMITIES: No edema Laboratory Results - last 24 hr 05/07/19 05/07/19 06:03 06:03 WBC 7.1 RBC 3.67 Hgb 10.8 Hct 32.3 L MCV 88.1 MCH 29.3 MCHC 33.3 RDW 14.6 Plt Count 309 MPV 10.1 Sodium 140 Potassium 4.1 Chloride 103 Carbon Dioxide 29 Anion Gap 8 BUN 25.1 H Creatinine 1.3 Est GFR (CKD-EPI)AfAm 49.16 Est GFR (CKD-EPI)NonAf 42.42 Random Glucose 77 Calcium 9.3 Current Medications Generic Name Dose Route Start Last Admin Trade Name Freq PRN Reason Stop Dose Admin Acetaminophen 650 mg 05/01/19 20:56 05/03/19 21:15 Tylenol - PO 650 mg Q4H PRN Administration PAIN LEVEL 1-5 Heparin Sodium (Porcine) 5,000 unit 05/01/19 22:00 05/07/19 13:43 Heparin - SQ 5,000 unit TID [facility] Administration Hydrochlorothiazide 12.5 mg 05/03/19 10:00 05/07/19 10:45 Hctz - PO 12.5 mg DAILY [facility] Administration Ertapenem 1 gm/ Sodium 50 mls @ 100 mls/hr 05/03/19 11:15 05/07/19 10:45 Chloride IVPB 100 mls/hr DAILY [facility] Administration Losartan Potassium 100 mg 05/03/19 10:00 05/07/19 10:45 Cozaar - PO 100 mg DAILY [facility] Administration Metoprolol Succinate 50 mg 05/02/19 17:00 05/07/19 10:45 Toprol Xl - PO 50 mg DAILY [facility] Administration ASSESSMENT AND PLAN: This is a 68 year old woman with a history of HTN, uterine cancer, cysto- vaginal fistula, urinary incontinence, and recurrent UTIs who presented to the ED with fever and lower abdominal pain. 1. Sepsis secondary to acute pyelonephritis with ESBL E. coli bacteremia, bilateral hydronephrosis - Sepsis resolved - Continue ertapenem (day 514) - Plan for PICC to complete course as outpatient - Urology follow-up 2. Calcific aortic valve disease - No obvious vegetation, blood cultures cleared quickly, unlikely to be endocarditis 3. Moderate aortic stenosis - Outpatient follow-up 4. Hyperbilirubinemia - Resolved 5. Diarrhea, chronic 6. HTN - Continue Cozaar, Toprol XL, HCTZ 7. Disposition - Ok for discharge once PICC in place and arrangements made for outpatient ertapenem
--- NOTE | 2019-05-07 15:59 | DS ---
Physical Exam: SUBJECTIVE: Patient seen and examined by the bedside, AOx3, in no acute distress. OBJECTIVE: Vital Signs Period Temp Pulse Resp BP Sys/Glasgow Pulse Ox Last 24 Hr 97.8 F-98.4 F 51-60 18-20 97-133/51-62 98 PHYSICAL EXAM GENERAL: The patient is awake, alert, and fully oriented, in no acute distress. HEAD: Normal with no signs of trauma. EYES: PERRL, extraocular movements intact, sclera anicteric, conjunctiva clear. No ptosis. ENT: Ears normal, nares patent, oropharynx clear without exudates, moist mucous membranes. NECK: Trachea midline, full range of motion, supple. LUNGS: Breath sounds equal, clear to auscultation bilaterally, no wheezes, no crackles, no accessory muscle use. HEART: Regular rate and rhythm, S1, S2 with 3/6 systolic murmur on right sternal border. ABDOMEN: Soft, nontender, nondistended, no CVA tenderness EXTREMITIES: 2+ pulses, warm, well-perfused, no edema. NEUROLOGICAL: Cranial nerves II through XII grossly intact. Normal speech, gait not observed. PSYCH: Normal mood, normal affect. 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 She presented to the ER with lower abdominal pain for the past 2 days, associated with subjective fever. She was given 1gm Rocephin, Urine cx was collected, and she was DCed from the ER on Keflex. The next day, her urine cx was positive for gram neg in anaerobic bottle, and she was asked to return for admission. Date of Discharge: 05/07/19 CT from her previous visit showed B/L hydronephosis worse on Right, bladder thickening. Blood cx was performed, which showed E sheldon ESBL, and she was started on Ertapenem 14 day course, as per ID (Dr. Ruiz). She has completed 5 days of her 14 day course, and she will complete the remaining 9 days at the hospital as a outpatient. PICC Line will b placed prior to DC to facilitate continued treatment. She also has hx of a cysto-vaginal fistula. Dr. Rainey was consulted, and he recommended outpatient FU for management of her fistula. Upon physical exam, she was noted to have a 3/6 systolic murmur. Echo was done to rule out vegetation and septic endocarditis (in setting of fever and murmur) . Echo showed calcification on aortic valve, Dr. Ruiz confirmed she first heard the murmur in 2018, so suspicion of endocarditis is low. Cardio was recommended, and she has been asked to FU with them outpatient for management ofher aortic stenosis. Minutes to complete discharge: 39 Discharge Summary Reason For Visit: URINARY TRACT INFECTION,SEPSIS Current Active Problems Sepsis (Acute) Condition: Improved - Instructions Diet, Activity, Other Instructions: You were admitted to the hospital for complaints of abdominal pain and fever. You were found to have a urinary tract infection, and one of your scans (CT) showed that you may have an infection in your kidneys. You will need to continue intravenous antibiotics for 8 more days to complete treatment for this infection. The antibiotics can not be taken by mouth, so you will be need to have a PICC line placed, which will be used to continue your antibiotics. While you were here, we performed a scan of your heart (Echo) and found a small abnormal structure on one of the valves. Our powder compounder was consulted, and he does not believe that this requires emergency treatment. We would like you to follow up outpatient for further management. Your symptoms have improved and you are now being discharged home. You will continue the treatment of your infection here at the hospital as an out-patient. Medications: - Please continue all your home meds as prescribed. - Please continue taking Ertapenem 1gm intravenously with one 50ml bag of Normal Saline once per day for the next 8 days (last dose 16 May). Follow up: You will need to have blood tests done when you visit the hospital on the May 13. Please make the following appointments within one week: - With your PCP, Juan Ramon Bashir - With your heart doctor. If you do not have one, please follow up with Ab Mccauley - With the infectious disease doctor, Dr. Ruiz - With the urologist, Dr. Rainey Additional Information: Please return to the Emergency Department if you have any of the following: Difficulty swallowing, fever, shortness of breath, loss of consciousness, nausea , dizziness, vomiting, diarrhea, bleeding that will not stop, or persistent headache. Referrals: Ray Rainey MD., [Staff Physician] - 1 Week Nena Ruiz MD [Staff Physician] - 1 Week Juan Ramon Jack MD [Primary Care Provider] - Disposition: HOME - Home Medications Comprehensive Discharge Medication List: Ambulatory Orders Metoprolol Succinate 50 mg PO DAILY 10/05/17 Cetirizine HCl [Allergy Relief] 1 tab PO DAILY 05/02/19 Irbesartan/Hydrochlorothiazide [Irbesartan-Hctz 300-12.5 mg Tb] 12.5 mg PO DAILY 05/02/19 Ertapenem Sodium [Invanz -] 1 gm IVPB DAILY vial 05/07/19 This patient is new to me today: No Emergency Visit: Yes ED Registration Date: 05/01/19 Care time: The patient presented to the Emergency Department on the above date and was hospitalized for further evaluation of their emergent condition. Critical Care patient: No - Discharge Referral Referred to [facility] Med P.C.: No ATTENDING PHYSICIAN STATEMENT I saw and evaluated the patient. I reviewed the resident's note and discussed the case with the resident. I agree with the resident's findings and plan as documented. SUBJECTIVE: OBJECTIVE: ASSESSMENT AND PLAN:
[2019-05-08] MEDS: HEPARIN NA (PORCINE) 5,000 UNITS/ML 1ML VIAL SQ SCH ×2 (06:22→14:27)
[2019-05-08] MEDS ORDERED: PT OWN MED DRAWER 7, Y5N ONE (11:31)
[2019-05-08] MEDS: HYDROCHLOROTHIAZIDE 12.5 MG CAPSULE (FP) PO SCH (11:40)
[2019-05-08] MEDS: ERTAPENEM SODIUM 1 GM in SODIUM CHLORIDE 50 ML IVPB SCH (11:40)
[2019-05-08] MEDS: LOSARTAN POTASSIUM 50 MG TABLET (FP) PO SCH (11:40)
--- NOTE | 2019-05-08 15:45 | PN ---
Teaching Attending Note Name of Resident: Kristi Tejeda ATTENDING PHYSICIAN STATEMENT I saw and evaluated the patient. I reviewed the resident's note and discussed the case with the resident. I agree with the resident's findings and plan as documented. SUBJECTIVE: No fever or chills. has no pain or SOB OBJECTIVE: NAD Cv : RRR Lungs: CTAB Abd: soft,NT, ND , NLBS Ext : no edema or erythema PICC in place with intact dressing ASSESSMENT AND PLAN: 68 y/o lady with h/o HTN, uterine cancer, incontinence, cystovaginal fistula with recurrent UTIs who presented with fever and abd pain and was admitted for sepsis from complicated UTI 1- sepsis : resolve 2- comlicated UTUI/pyelonephritis 3- . 4- H/o HTn plan : - cont ertapenem for 8 more days at infusion center - CBC, CMP in 5 days - f/u with card for abnormal structure of aortic valve - cont home meds - echo reviewed dispo: [facility] home
[2019-05-08 16:03] VITALS: BP 134/62; PULSE 62; TEMP 97.6
== END 2019-05-08 17:47 | disposition home or self-care (01) | DRG 872 ==
LOC: JER 16:34 → JERBED 18:05 → J5S 05-02 03:37 → J7W 05-03 14:39 → J8W 05-04 20:08
PROVIDERS: ADMIT Internal Medicine; ATTEND Internal Medicine
PROC: 02HV33Z Insertion of Infusion Device into Superior Vena Cava, Percutaneous Approach (ICD-10-PCS; principal; 2019-05-08)
PROC: B518ZZA Fluoroscopy of Superior Vena Cava, Guidance (ICD-10-PCS; 2019-05-08)
PROC: B548ZZA Ultrasonography of Superior Vena Cava, Guidance (ICD-10-PCS; 2019-05-08)
DX: A41.51 Sepsis due to Escherichia coli [E. coli] (principal); N10 Acute pyelonephritis; N13.30 Unspecified hydronephrosis; I10 Essential (primary) hypertension; E88.09 Other disorders of plasma-protein metabolism, not elsewhere classified; E11.9 Type 2 diabetes mellitus without complications; Z16.12 Extended spectrum beta lactamase (ESBL) resistance; R32 Unspecified urinary incontinence; I35.0 Nonrheumatic aortic (valve) stenosis; R35.0 Frequency of micturition; E66.9 Obesity, unspecified; Z68.30 Body mass index [BMI] 30.0-30.9, adult; D64.9 Anemia, unspecified; F10.10 Alcohol abuse, uncomplicated; R19.7 Diarrhea, unspecified; R01.1 Cardiac murmur, unspecified; I70.0 Atherosclerosis of aorta; Z85.41 Personal history of malignant neoplasm of cervix uteri; Z90.710 Acquired absence of both cervix and uterus; Z87.891 Personal history of nicotine dependence
CPT/HCPCS: 36415; 36569; 71045-TC-FY; 72131-TC; 74177-TC; 77001-TC-FY; 80048; 80053; 81003; 82248; 82550; 82803; 83605; 83690; 83735; 84100; 84484; 85025; 85027; 85610; 85651; 85730; 86140; 86850; 86900; 86901; 87040; 87086; 87186; 93005; 93010; 93306-TC; 99282-25; 99283-25; C1751; J1644; J7030

== ENCOUNTER 2019-05-09 09:04 | Day surgery (SDC) | payer OTHER ==
[2019-05-09] MEDS ORDERED: ERTAPENEM SODIUM 1 GM in SODIUM CHLORIDE 50 ML IVPB ONE (09:32)
[2019-05-09] MEDS ORDERED: ERTAPENEM SODIUM 1 GM VIAL ONE (09:32)
[2019-05-09 14:24] VITALS: BP 108/78; PULSE 83; TEMP 99.2
== END 2019-05-09 10:30 | disposition home or self-care (01) ==
LOC: JINFUSION 09:04
PROVIDERS: ATTEND Internal Medicine
DX: N10 Acute pyelonephritis (principal)
CPT/HCPCS: 96365

== ENCOUNTER 2019-05-10 10:48 | Day surgery (SDC) | payer OTHER ==
[~2019-05-10 10:48] MED LIST: ERTAPENEM SODIUM 1 GM in SODIUM CHLORIDE 50 ML IVPB ONE
[2019-05-10 11:35] LABS: HEMATOCRIT 33.4 % (32.4-45.2); MCH 28.9 pg (25.7-33.7); MCHC 32.9 g/dl (32.0-36.0); MEAN CELL VOLUME 87.9 fl (80-96); MEAN PLT VOLUME 9.4 fl (7.5-11.1); PLATELET COUNT 344 K/MM3 (134-434); RDW 15.1 % (11.6-15.6)
[2019-05-10 12:12] LABS: BLOOD UREA NITROGEN 21.1 mg/dL (7-18); CALCIUM 9.4 mg/dL (8.5-10.1); CREATININE 1.2 mg/dL (0.55-1.3); POTASSIUM 4.3 mmol/L (3.5-5.1)
[2019-05-10 14:13] VITALS: BP 142/49; PULSE 61; TEMP 99.1
== END 2019-05-10 12:45 | disposition home or self-care (01) ==
LOC: JINFUSION 10:48
PROVIDERS: ATTEND Internal Medicine
DX: N10 Acute pyelonephritis (principal)
CPT/HCPCS: 36415; 80048; 85027; 96365

== ENCOUNTER 2019-05-11 10:47 | Day surgery (SDC) | payer OTHER ==
[2019-05-11] MEDS ORDERED: ERTAPENEM SODIUM 1 GM in SODIUM CHLORIDE 50 ML IVPB ONE (11:30)
[2019-05-11 11:46] VITALS: TEMP 98.8
[2019-05-11 12:46] VITALS: BP 126/72; PULSE 78
== END 2019-05-11 12:48 | disposition home or self-care (01) ==
LOC: JINFUSION 10:47 → J7W 10:49 → JINFUSION 12:48
PROVIDERS: ATTEND Internal Medicine
DX: N10 Acute pyelonephritis (principal)
CPT/HCPCS: 96365

== ENCOUNTER 2019-05-12 11:44 | Day surgery (SDC) | payer OTHER ==
[2019-05-12] MEDS ORDERED: ERTAPENEM SODIUM 1 GM in SODIUM CHLORIDE 50 ML IVPB ONE (12:00)
[2019-05-12 12:04] VITALS: BP 132/71; PULSE 65; TEMP 98.8
== END 2019-05-12 13:10 | disposition home or self-care (01) ==
LOC: JINFUSION 11:44 → J7W 11:45 → JINFUSION 13:10
PROVIDERS: ATTEND Internal Medicine
DX: N10 Acute pyelonephritis (principal)
CPT/HCPCS: 96365

== ENCOUNTER 2019-05-13 11:08 | Day surgery (SDC) | payer OTHER ==
[2019-05-13] MEDS ORDERED: ERTAPENEM SODIUM 1 GM VIAL ONE (11:37)
[2019-05-13] MEDS ORDERED: ERTAPENEM SODIUM 1 GM in SODIUM CHLORIDE 50 ML IVPB ONE (12:00)
[2019-05-13 12:21] VITALS: BP 134/58; PULSE 68; TEMP 98.4
== END 2019-05-13 12:21 | disposition home or self-care (01) ==
LOC: JINFUSION 11:08
PROVIDERS: ATTEND Internal Medicine
DX: N10 Acute pyelonephritis (principal)
CPT/HCPCS: 96365

== ENCOUNTER 2019-05-14 11:26 | Day surgery (SDC) | payer OTHER ==
[2019-05-14 14:08] VITALS: BP 103/54; PULSE 75; TEMP 98.5
== END 2019-05-14 12:15 | disposition home or self-care (01) ==
LOC: JINFUSION 11:26
PROVIDERS: ATTEND Internal Medicine
DX: N10 Acute pyelonephritis (principal)
CPT/HCPCS: 96365

== ENCOUNTER 2019-05-15 11:35 | Day surgery (SDC) | payer OTHER ==
[2019-05-15 12:08] VITALS: TEMP 98.4
[2019-05-15 12:49] VITALS: BP 130/62; PULSE 61
== END 2019-05-15 12:49 | disposition home or self-care (01) ==
LOC: JINFUSION 11:35
PROVIDERS: ATTEND Internal Medicine
DX: N10 Acute pyelonephritis (principal)
CPT/HCPCS: 96365

== ENCOUNTER 2019-05-16 12:00 | Day surgery (SDC) | payer OTHER ==
[2019-05-16 12:35] VITALS: TEMP 99.1
[2019-05-16 13:34] VITALS: BP 149/72; PULSE 78
== END 2019-05-16 13:18 | disposition home or self-care (01) ==
LOC: JINFUSION 12:00
PROVIDERS: ATTEND Internal Medicine
DX: N10 Acute pyelonephritis (principal)
CPT/HCPCS: 96365

== ENCOUNTER 2019-05-17 11:33 | Day surgery (SDC) | payer OTHER ==
[2019-05-17 12:18] VITALS: BP 103/61; PULSE 66; TEMP 99.1
== END 2019-05-17 12:05 | disposition home or self-care (01) ==
LOC: JINFUSION 11:33
PROVIDERS: ATTEND Internal Medicine
DX: N10 Acute pyelonephritis (principal)
CPT/HCPCS: 96365

== ENCOUNTER 2019-05-18 10:56 | Day surgery (SDC) | payer OTHER ==
[2019-05-18] MEDS ORDERED: ERTAPENEM SODIUM 1 GM in SODIUM CHLORIDE 50 ML IVPB ONE (11:45)
[2019-05-18 13:01] VITALS: BP 137/89; PULSE 67; TEMP 97.7
== END 2019-05-18 13:41 | disposition home or self-care (01) ==
LOC: JINFUSION 10:56 → J7W 10:57 → JINFUSION 13:41
PROVIDERS: ATTEND Internal Medicine
DX: N10 Acute pyelonephritis (principal)
CPT/HCPCS: 96365